=== PATIENT | male | born 1950 | race Caucasian/White ===

== ENCOUNTER 2018-03-12 11:29 | Inpatient (IN) | payer MEDICARE, OTHER, SELFPAY ==
[2018-03-12] VITALS (15 sets, daily range): BP systolic 99–131; BP diastolic 68–93; PULSE 65–109; RESP 14–28; TEMP 36.3–36.8; O2SAT 95–98; BMI 26.4; BMI 26.0
--- NOTE | 2018-03-12 11:36 | CT_ITS ---
STUDY: CT BRAIN WITHOUT CONTRAST REASON FOR EXAM: Male, 67 years old. Frequent falls and weakness. Confusion. RADIATION DOSAGE (If Supplied By Facility): CTDIvol = ( 44.99 ) mGy, DLP = ( 762.36 ) mGycm TECHNIQUE: Transaxial CT imaging of the brain was performed without administration of intravenous contrast material. Individualized dose optimization techniques were used for this CT. COMPARISON: None. FINDINGS: Normal soft tissue structures. Normal calvarium. There is moderate cerebral atrophy with widening of the extra-axial spaces and ventricular dilatation. There are areas of decreased attenuation within the white matter tracts of the supratentorial brain, consistent with microvascular disease changes. Normal basal ganglia and thalami. Normal brainstem. Normal cerebellum. There is no intracranial hemorrhage. There are no findings of an acute ischemic infarction. Normal visualized paranasal sinuses. CT/Brain/Head without Contrast IMPRESSION: No acute intracranial process. Electronically Signed: Duc Meade MD at 12:58 EDT Tel , Service support ,
--- NOTE | 2018-03-12 11:36 | EKG12_ITS ---
Test Reason : FALL Blood Pressure : / mmHG Vent. Rate : 098 BPM Atrial Rate : 098 BPM P-R Int : 150 ms QRS Dur : 076 ms QT Int : 454 ms P-R-T Axes : 036 000 111 degrees QTc Int : 579 ms Sinus rhythm with Premature supraventricular complexes ST & T wave abnormality, consider lateral ischemia Prolonged QT Abnormal ECG Confirmed by MATIAS MYLES, DANIEL ([id number]), senior technical editor GEORGI URENA ([id number] on 03/14/2018 3:26:30 PM Referred By: ASHLEY Confirmed By:DANIEL SALCEDO MD
--- NOTE | 2018-03-12 11:36 | RAD_ITS ---
STUDY: X-RAY CHEST REASON FOR EXAM: Male, 67 years old. Weakness, confusion TECHNIQUE: Single AP portable view of the chest. COMPARISON: None. FINDINGS: Cardiac monitoring leads overlie the chest. The lungs are clear and expanded. There is no demonstrated pleural abnormality. Normal size heart. Normal mediastinum and puja. Normal visualized pulmonary arteries. There is atherosclerotic tortuosity of the aortic arch and descending thoracic aorta. There are diffuse degenerative changes of the visualized thoracic spine. Normal visualized ribs, clavicles, and shoulders. There is no demonstrated abnormality of the visualized soft tissue structures of the upper abdomen. RAD/Chest 1 View IMPRESSION: Degenerative changes, as described above. No demonstrated acute cardiopulmonary process. Electronically Signed: Fransico Royal DO at 12:28 EDT Tel , Service support ,
--- NOTE | 2018-03-12 11:41 | ED.VISSUMM ---
- ER Visit Summary Date of Service: 03/12/18 Chief Complaint: Multiple falls, dizziness History of Present Illness: The patient is a 67 M with history of chronic alcohol abuse presents to the emergency department multiple falls. Patient states over the past 3 weeks, he has been very unsteady on his feet. He states he has been falling 2 or 3 times a day. He also admits to some change in his speech. He states it has been going on for at least 5 days. Today, he was out in his yard and fell. He states that he felt too weak to get up. Squad was called. He had no evidence of external injury. Patient denies any history of stroke. He states that he does drink approximately 12 beers a day. He also has a history of hypertension but thinks he has been compliant with his medications. He denies headache or visual change. He does states when he walks, he feels very unsteady like his feet cannot feel the ground correctly. Physical Examination: Vital signs reviewed General: Mildly cachectic with dry mucous membranes Head: Normocephalic, atraumatic Eyes: Pupils equal and reactive, extraocular muscles intact Neck, supple, no lymphadenopathy Heart: Regular rate and rhythm Respiratory: No distress, clear bilaterally Abdomen: Soft, nontender, nondistended, no peritoneal signs Back: Nontender Extremities: Nontender, no edema, no cords Skin: Normal color no rash Neuro: Alert and oriented, patient has abnormalities in cerebellar tasks and mild dysarthria, NIH is 2 Test Results: [] Emergency Department Course and Treatment: The patient presents with new onset ataxia. He also had mild dysarthria. The patient does have a history of alcohol abuse. He had a very broad differential. EKG was obtained which did not show atrial fibrillation. His x-ray was unremarkable. Patient was given fluids, thiamine, and folate. His head CT does not show acute on normality. Screening labs do demonstrate acute kidney injury and anion gap acidosis. He also has a small amount of ketones. I do feel that this patient's presentation is multifactorial. I am unsure if this is a Warneke's encephalopathy versus a posterior stroke. I do for the patient's can require admission for further neurologic workup. The patient was started on D5 LR given his ketosis. He was loaded with Librium. He was discussed with the hospitalist and will be admitted. Treatment Plan: [] Disposition: Admission Impression: 1. New onset ataxia 2. Alcohol ketoacidosis 3. Acute kidney injury This note was generated with [employer] dictation software. It may contain incorrect words, spelling, and punctuation that were not noted in review of the chart prior to signing ED Disposition - Plan for ED Patient: Chief Complaint: Fall
[2018-03-12] MEDS: 0.9% Normal Saline 1,000 ML 999 ML IV (11:49)
[2018-03-12 11:50] LABS: Bedside Glucose 105 mg/dL (70-110)
[2018-03-12 12:09] LABS: Absolute Lymphocyte Count 0.76 X10^3/ul (0.83-4.51); Absolute Neutrophil Count 10.1 X10^3/uL (2.0-7.7); Basophil# 0.03 X10^3/uL; Basophil% 0.3 % (0-1); Eosinophil# 0.09 X10^3/uL; Eosinophils% 0.8 % (0-5); Hemoglobin 15.8 g/dl (13.0-16.5); Lymphocyte # 0.76 X10^3/ul (4.0); Lymphocyte % 6.5 % (19-41); Mean Corp Hgb Conc 33.6 g/gl (32-36); Mean Corpuscular Hgb 31.1 pg (27.0-32.0); Mean Corpuscular Volume 92.5 fL (80-94); Monocyte# 0.66 X10^3/uL; Monocyte% 5.7 % (0-10); Neutrophil # 10.09 X10^3/uL (2.7-7.7); Neutrophil % 86.5 % (47-70); POSITIVE COUNT NO; POSITIVE DIFFERENTIAL NO; POSITIVE MORPHOLOGY NO; Platelet Count 283 K/mm3 (150-450); RBC Distribution Width CV 14.2 % (11.6-14.6); RBC Distribution Width SD 47.8 fl (35.1-43.9); Red Blood Count 5.08 M/mm3 (4.6-6.2); White Blood Count 11.7 K/mm3 (4.4-11.0)
[2018-03-12 12:13] LABS: Alcohol, Blood (Medical)-Serum < 3.0 mg/dL
[2018-03-12 12:19] LABS: AST(SGOT) 57 U/L (15-37); Alanine Aminotransfer ALT/SGPT 44 U/L (16-61); Alkaline Phosphatase 120 U/L (45-117); Anion Gap 21 (5-15); BUN 55 mg/dL (7-18); BUN/Creat Ratio 22.4 RATIO (10-20); Bilirubin, Direct 0.23 mg/dL (0.00-0.30); Calcium,Total 10.2 mg/dL (8.5-10.1); Chloride 93 mmol/L (98-107); Creatinine, Serum 2.46 mg/dL (0.70-1.30); EST Glomerular Filtration Rate 28 mL/min (>60); Est Glom Filt Rate - Afr Amer 34 mL/min (>60); Estimated Creatinine Clearance 23.73 ml/min; Globulin 4.8 g/dL (2.2-4.2); Glucose 101 mg/dL (74-106); Potassium 4.1 mmol/L (3.5-5.1); Protein, Total 8.8 g/dL (6.4-8.2); Sodium Level 132 mmol/L (136-145)
[2018-03-12 12:21] LABS: International Normalized Ratio 1.8; Prothrombin Time (Protime)PT. 20.9 SECONDS (11.7-14.9)
[2018-03-12 12:22] LABS: Partial Thromboplast Time 34.5 Seconds (24.1-36.2)
--- NOTE | 2018-03-12 13:08 | PCM.HP.STD ---
Problem List (1) Stroke Status: Acute Qualifiers: CVA mechanism: unspecified Qualified Code(s): I63.9 - Cerebral infarction, unspecified (2) Alcoholic ketoacidosis Status: Acute (3) Hyponatremia Status: Acute (4) LEENA (acute kidney injury) Status: Acute (5) Abnormal LFTs Status: Chronic (6) Alcohol abuse Status: Chronic (7) HTN (hypertension) Status: Chronic Qualifiers: Hypertension type: essential hypertension Qualified Code(s): I10 - Essential (primary) hypertension (8) HLD (hyperlipidemia) Status: Chronic Qualifiers: Hyperlipidemia type: pure hypercholesterolemia Qualified Code(s): E78.00 - Pure hypercholesterolemia, unspecified; E78.0 - Pure hypercholesterolemia (9) Gout Status: Chronic Qualifiers: Gout site: unspecified site Gout etiology: unspecified cause Chronicity: unspecified Qualified Code(s): M10.9 - Gout, unspecified History of Present Illness Date of Admission: 03/12/18 Chief Complaint: Frequent falls The patient is a 67 y/o M w/ PMHx: HTN, HLD, Gout, recent penitentiary and onset heavy EtOH consumption starting ~ 4 weeks prior w/ 6-8 [employer] hard lemonades per day w/ onset over this same timeline gait disturbance, frequent falling, not specifically able to tell a specific side with additionally dysarthria. In the ED work-up included T 97.4, heart rate 66, BP 114/83, respiratory rate 18, 98% on room air, CBC with WBC 11.7, hemoglobin 15.8, platelet 283 with left shift, coags with PT 20.9, INR 1.8, PTT 34.5, CMP with sodium 132, chloride 93, carbon dioxide 18, anion gap 21, BUN/Cr 55/2.46, AST/ALT 57/44, alkaline phosphatase 120, troponin 0.019, ethyl alcohol less than 3, acetone small, CT brain with no acute intracranial process, chest x-ray with no acute findings. In the ED given initial concern for prolonged alcohol abuse history patient administered Librium 50 mg p.o. ?1 in addition to normal saline 1 L bolus in addition to initiation following lab results to D5LR at 150 cc/hr, thiamine 100 mg IV ?1. Past Medical History Past Medical History (Chronic Problems): Chronic Problems Abnormal LFTs (Chronic) Alcohol abuse (Chronic) HTN (hypertension) (Chronic) HLD (hyperlipidemia) (Chronic) Gout (Chronic) Allergies No Known Allergies Allergy (Verified 03/12/18 11:36) Home Medications: Ambulatory Orders Medication Instructions Recorded Unobtainable [Unobtainable] 03/12/18 Surgical History: - - R THR. 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 Smoking Status: Former smoker Tobacco Use: Non-smoker Alcohol: Heavy - 6-8 normal size [employer] hard lemonade daily. Drugs: None - *Family History Maternal History Items: - - No marked maternal history including DM, HTN, HD. Paternal History Items: Diabetes Review of Systems Constitutional: Reports: Anorexia, Malaise, Weakness, Fatigue. Denies: Chills, Fever, Weight Change HEENT: Denies: Head Aches, Sinus Congestion, Sinus Drainage Cardiovascular: Denies: Chest Pain, Palpitations Respiratory: Denies: Cough, Shortness of breath at rest, Sputum production Gastrointestinal: Reports: Nausea. Denies: Abdominal Pain, Vomiting Genitourinary: Denies: Dysuria Musculoskeletal: Reports: Back Pain. Denies: Joint Pain, Joint Tenderness Skin: Reports: Skin Changes. Denies: Rash, Wounds Neurological: Reports: Balance problems, Change in Speech, Confusion, Incoordination. Denies: Focal weakness, Numbness, Tingling Psychiatric: Reports: Depression. Denies: Anxiety, Homicidal Ideations, Suicidal Ideations Hematologic/ Lymphatic: Denies: Easy Bruising, Easy Bleeding VTE Information - Inpt Only VTE Present on Admission: No VTE Mechan Device Prophylaxis: SCD's VTE Pharm Prophylaxis ordered?: Yes Patient Problems: Active and Suspected Problems Alcoholic ketoacidosis (Acute) Stroke (Acute) Hyponatremia (Acute) LEENA (acute kidney injury) (Acute) Subjective: Patient seated upright in the bed, no acute distress. Objective: Physical Examination: General: awake, alert, oriented x [address], year, month and cooperative, seated upright in bed in no apparent distress. Skin: normal color, turgor, no icterus, cyanosis notably dry skin especially the lower extremities with flaking and occasional abrasion to lower extremities, very staged. HEENT: AT/NC, EOMI, PERRLA, dry MM, no carotid bruits or JVD noted. Lungs: CTA bilaterally, moderate effort, mild decrease BL bases, no rales, ronchi or wheezing. Heart: Regular rate and rhythm; no gallop, rub audible. Abdomen: soft, NTTP, ND, normal BS, + mild HM. Extremities: no cyanosis, clubbing, or edema. Neurological: patient awake, alert, oriented x 3; cognitive function intact; pupils equally reactive to light and accomodation; cranial nerves II-XII grossly normal, moving all 4 extremities, no focal deficits, strength severely globally decreased, sensation intact, negative babinski, abnormal R sided FTN and HTS, dysarthria present. Psychiatric: affect appears mildly flat, no acute evidence of depressive or anxiety feelings. - Physical Exam Vital Signs Temp Pulse Resp BP Pulse Ox 97.8 F 93 28 H 114/86 H 97 03/12/18 11:29 03/12/18 13:01 03/12/18 13:01 03/12/18 13:01 03/12/18 13:01 Oxygen Flow Rate (L/min) 2 Oxygen Delivery Method Nasal Cannula Weight: 154 lb 5.177 oz Body Mass Index (BMI) 26.4 Laboratory Tests Past 24 Hrs 03/12/18 03/12/18 03/12/18 11:25 11:25 11:25 WBC 11.7 H RBC 5.08 Hgb 15.8 Hct 47.0 MCV 92.5 MCH 31.1 MCHC 33.6 RDW 14.2 RDW Differential 47.8 H Plt Count 283 MPV 11.0 Immature Gran % (Auto) 0.200 Neut % (Auto) 86.5 H Lymph % (Auto) 6.5 L [place] % (Auto) 5.7 Eos % (Auto) 0.8 Baso % (Auto) 0.3 Absolute Neuts (auto) 10.1 H Absolute Lymphs (auto) 0.76 L Total Counted Not Reportable PT 20.9 H INR 1.8 APTT 34.5 Sodium 132 L Potassium 4.1 Chloride 93 L Carbon Dioxide 18.0 L Anion Gap 21 H BUN 55 H Creatinine 2.46 H Estim Creat Clear Calc 23.73 Est GFR (MDRD) Af Amer 34 L Est GFR (MDRD) Non-Af 28 L BUN/Creatinine Ratio 22.4 H Glucose 101 Calcium 10.2 H Total Bilirubin 0.70 Direct Bilirubin 0.23 AST 57 H ALT 44 Alkaline Phosphatase 120 H Troponin I 0.019 Total Protein 8.8 H Albumin 4.0 Globulin 4.8 H Ethyl Alcohol Acetone Level 03/12/18 11:25 WBC RBC Hgb Hct MCV MCH MCHC RDW RDW Differential Plt Count MPV Immature Gran % (Auto) Neut % (Auto) Lymph % (Auto) [place] % (Auto) Eos % (Auto) Baso % (Auto) Absolute Neuts (auto) Absolute Lymphs (auto) Total Counted PT INR APTT Sodium Potassium Chloride Carbon Dioxide Anion Gap BUN Creatinine Estim Creat Clear Calc Est GFR (MDRD) Af Amer Est GFR (MDRD) Non-Af BUN/Creatinine Ratio Glucose Calcium Total Bilirubin Direct Bilirubin AST ALT Alkaline Phosphatase Troponin I Total Protein Albumin Globulin Ethyl Alcohol < 3.0 Acetone Level SMALL H POC Glucose 03/12/18 11:44 POC Glucose 105 Assessment/Plan All Active Problems Alcoholic ketoacidosis (Acute) Stroke (Acute) Hyponatremia (Acute) LEENA (acute kidney injury) (Acute) The patient is a 67 y/o M w/ PMHx: HTN, HLD, Gout, recent penitentiary and onset heavy EtOH consumption starting ~ 4 weeks prior w/ 6-8 [employer] hard lemonades per day w/ onset over this same timeline gait disturbance, frequent falling, not specifically able to tell a specific side with additionally dysarthria. (1) Ataxia, frequent falls, dysarthria concerning for CVA: In the ED work-up included T 97.4, heart rate 66, BP 114/83, respiratory rate 18, 98% on room air, CBC with WBC 11.7, hemoglobin 15.8, platelet 283 with left shift, coags with PT 20.9, INR 1.8, PTT 34.5, CMP with sodium 132, chloride 93, carbon dioxide 18, anion gap 21, BUN/Cr 55/2.46, AST/ALT 57/44, alkaline phosphatase 120, troponin 0.019, ethyl alcohol less than 3, acetone small CT brain with no acute intracranial process, chest x-ray with no acute findings. Will admit to PCU, will obtain MRI Brain, MRA Head and Neck, ECHO, PT/OT/Speech/Nutrition evaluation per protocol. Will consult Neurology for evaluation. Given timeline 3-4 weeks, if HTN elevated will initiate therapy; however, currently remains appropriate, start asa therapy as not previously taking, start high dose statin w/ AM FLP, maintain on fall precautions, Mag pending, TSH pending. (2) Alcoholic ketoacidosis: CMP with sodium 132, chloride 93, carbon dioxide 18, anion gap 21, BUN/Cr 55/2.46, AST/ALT 57/44, alkaline phosphatase 120, troponin 0.019, ethyl alcohol less than 3, acetone small, initiated on D5LR, will continue, repeat BMP q 4 hours x 3 to trend and assure improvement, repeat CMP in AM. Mag, Phos pending. Maintain on CIWA. Maintain on MVI, thiamine, folic acid. Nutrition consulted. CM consulted. (2) Acute kidney injury: Secondary to acute presentation, #1, #2, #3. Admission BUN/Cr 55/2.46, unclear baseline. Will continue to hydrate, hold nephrotoxic medications and repeat BMP as noted given concurrent #2 q 4 hours x 3, repeat CMP in AM. Obtain FeNa assessment. If no improvement obtain renal US and nephrology consultation. (3) EtOH Abuse: Patient notes routine consumption of 6-8 [place] hard lemonade daily x 4 weeks now, noted intermittent heavy history but onset started more regularly with penitentiary and visit to [place] from his home in [facility]. Initially had been given librium in the ED as concerned given history of acute EtOH withdrawal; however, now more alert and noting only 4 weeks of this consumption history. Will maintain on CIWA protocol, MVI, thiamine and folic acid. Nutrition consulted. (4) Hypertension: Not elevated, unclear regimen, defer addition given normal BP current, PRN labetaolol. (5) Hyperlipidemia: Add high dose statin, FLP in AM. (6) Suspect Depression: Recent start heavy EtOH following penitentiary, daughter noting depression concerns as etiology. CM consulted. (7) DVT Prophylaxis: SCDs, heparin. Code Visit Inpatient E&M: 02301 Init Hosp L3
--- NOTE | 2018-03-12 13:11 | HP.PCM_ITS ---
Problem List (1) Stroke Status: Acute Qualifiers: CVA mechanism: unspecified Qualified Code(s): I63.9 - Cerebral infarction, unspecified (2) Alcoholic ketoacidosis Status: Acute (3) Hyponatremia Status: Acute (4) LEENA (acute kidney injury) Status: Acute (5) Abnormal LFTs Status: Chronic (6) Alcohol abuse Status: Chronic (7) HTN (hypertension) Status: Chronic Qualifiers: Hypertension type: essential hypertension Qualified Code(s): I10 - Essential (primary) hypertension (8) HLD (hyperlipidemia) Status: Chronic Qualifiers: Hyperlipidemia type: pure hypercholesterolemia Qualified Code(s): E78.00 - Pure hypercholesterolemia, unspecified; E78.0 - Pure hypercholesterolemia (9) Gout Status: Chronic Qualifiers: Gout site: unspecified site Gout etiology: unspecified cause Chronicity: unspecified Qualified Code(s): M10.9 - Gout, unspecified History of Present Illness Date of Admission: 03/12/18 Chief Complaint: Frequent falls The patient is a 67 y/o M w/ PMHx: HTN, HLD, Gout, recent skilled nursing and onset heavy EtOH consumption starting ~ 4 weeks prior w/ 6-8 [employer] hard lemonades per day w/ onset over this same timeline gait disturbance, frequent falling, not specifically able to tell a specific side with additionally dysarthria. In the ED work-up included T 97.4, heart rate 66, BP 114/83, respiratory rate 18, 98% on room air, CBC with WBC 11.7, hemoglobin 15.8, platelet 283 with left shift, coags with PT 20.9, INR 1.8, PTT 34.5, CMP with sodium 132, chloride 93, carbon dioxide 18, anion gap 21, BUN/Cr 55/2.46, AST/ALT 57/44, alkaline phosphatase 120, troponin 0.019, ethyl alcohol less than 3, acetone small, CT brain with no acute intracranial process, chest x-ray with no acute findings. In the ED given initial concern for prolonged alcohol abuse history patient administered Librium 50 mg p.o. ?1 in addition to normal saline 1 L bolus in addition to initiation following lab results to D5LR at 150 cc/hr, thiamine 100 mg IV ?1. Past Medical History Past Medical History (Chronic Problems): Chronic Problems Abnormal LFTs (Chronic) Alcohol abuse (Chronic) HTN (hypertension) (Chronic) HLD (hyperlipidemia) (Chronic) Gout (Chronic) Allergies No Known Allergies Allergy (Verified 03/12/18 11:36) Home Medications: Ambulatory Orders Medication Instructions Recorded Unobtainable [Unobtainable] 03/12/18 Surgical History: - - R THR. 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 Smoking Status: Former smoker Tobacco Use: Non-smoker Alcohol: Heavy - 6-8 normal size mon[place] hard lemonade daily. Drugs: None - *Family History Maternal History Items: - - No marked maternal history including DM, HTN, HD. Paternal History Items: Diabetes Review of Systems Constitutional: Reports: Anorexia, Malaise, Weakness, Fatigue. Denies: Chills, Fever, Weight Change HEENT: Denies: Head Aches, Sinus Congestion, Sinus Drainage Cardiovascular: Denies: Chest Pain, Palpitations Respiratory: Denies: Cough, Shortness of breath at rest, Sputum production Gastrointestinal: Reports: Nausea. Denies: Abdominal Pain, Vomiting Genitourinary: Denies: Dysuria Musculoskeletal: Reports: Back Pain. Denies: Joint Pain, Joint Tenderness Skin: Reports: Skin Changes. Denies: Rash, Wounds Neurological: Reports: Balance problems, Change in Speech, Confusion, Incoordination. Denies: Focal weakness, Numbness, Tingling Psychiatric: Reports: Depression. Denies: Anxiety, Homicidal Ideations, Suicidal Ideations Hematologic/ Lymphatic: Denies: Easy Bruising, Easy Bleeding VTE Information - Inpt Only VTE Present on Admission: No VTE Mechan Device Prophylaxis: SCD's VTE Pharm Prophylaxis ordered?: Yes Patient Problems: Active and Suspected Problems Alcoholic ketoacidosis (Acute) Stroke (Acute) Hyponatremia (Acute) LEENA (acute kidney injury) (Acute) Subjective: Patient seated upright in the bed, no acute distress. Objective: Physical Examination: General: awake, alert, oriented x [address], year, month and cooperative , seated upright in bed in no apparent distress. Skin: normal color, turgor, no icterus, cyanosis notably dry skin especially the lower extremities with flaking and occasional abrasion to lower extremities , very staged. HEENT: AT/NC, EOMI, PERRLA, dry MM, no carotid bruits or JVD noted. Lungs: CTA bilaterally, moderate effort, mild decrease BL bases, no rales, ronchi or wheezing. Heart: Regular rate and rhythm; no gallop, rub audible. Abdomen: soft, NTTP, ND, normal BS, + mild HM. Extremities: no cyanosis, clubbing, or edema. Neurological: patient awake, alert, oriented x 3; cognitive function intact; pupils equally reactive to light and accomodation; cranial nerves II-XII grossly normal, moving all 4 extremities, no focal deficits, strength severely globally decreased, sensation intact, negative babinski, abnormal R sided FTN and HTS, dysarthria present. Psychiatric: affect appears mildly flat, no acute evidence of depressive or anxiety feelings. - Physical Exam Vital Signs Temp Pulse Resp BP Pulse Ox 97.8 F 93 28 H 114/86 H 97 03/12/18 11:29 03/12/18 13:01 03/12/18 13:01 03/12/18 13:01 03/12/18 13:01 Oxygen Flow Rate (L/min) 2 Oxygen Delivery Method Nasal Cannula Weight: 154 lb 5.177 oz Body Mass Index (BMI) 26.4 Laboratory Tests Past 24 Hrs 03/12/18 03/12/18 03/12/18 11:25 11:25 11:25 WBC 11.7 H RBC 5.08 Hgb 15.8 Hct 47.0 MCV 92.5 MCH 31.1 MCHC 33.6 RDW 14.2 RDW Differential 47.8 H Plt Count 283 MPV 11.0 Immature Gran % (Auto) 0.200 Neut % (Auto) 86.5 H Lymph % (Auto) 6.5 L [place] % (Auto) 5.7 Eos % (Auto) 0.8 Baso % (Auto) 0.3 Absolute Neuts (auto) 10.1 H Absolute Lymphs (auto) 0.76 L Total Counted Not Reportable PT 20.9 H INR 1.8 APTT 34.5 Sodium 132 L Potassium 4.1 Chloride 93 L Carbon Dioxide 18.0 L Anion Gap 21 H BUN 55 H Creatinine 2.46 H Estim Creat Clear Calc 23.73 Est GFR (MDRD) Af Amer 34 L Est GFR (MDRD) Non-Af 28 L BUN/Creatinine Ratio 22.4 H Glucose 101 Calcium 10.2 H Total Bilirubin 0.70 Direct Bilirubin 0.23 AST 57 H ALT 44 Alkaline Phosphatase 120 H Troponin I 0.019 Total Protein 8.8 H Albumin 4.0 Globulin 4.8 H Ethyl Alcohol Acetone Level 03/12/18 11:25 WBC RBC Hgb Hct MCV MCH MCHC RDW RDW Differential Plt Count MPV Immature Gran % (Auto) Neut % (Auto) Lymph % (Auto) [place] % (Auto) Eos % (Auto) Baso % (Auto) Absolute Neuts (auto) Absolute Lymphs (auto) Total Counted PT INR APTT Sodium Potassium Chloride Carbon Dioxide Anion Gap BUN Creatinine Estim Creat Clear Calc Est GFR (MDRD) Af Amer Est GFR (MDRD) Non-Af BUN/Creatinine Ratio Glucose Calcium Total Bilirubin Direct Bilirubin AST ALT Alkaline Phosphatase Troponin I Total Protein Albumin Globulin Ethyl Alcohol < 3.0 Acetone Level SMALL H POC Glucose 03/12/18 11:44 POC Glucose 105 Assessment/Plan All Active Problems Alcoholic ketoacidosis (Acute) Stroke (Acute) Hyponatremia (Acute) LEENA (acute kidney injury) (Acute) The patient is a 67 y/o M w/ PMHx: HTN, HLD, Gout, recent skilled nursing and onset heavy EtOH consumption starting ~ 4 weeks prior w/ 6-8 [employer] hard lemonades per day w/ onset over this same timeline gait disturbance, frequent falling, not specifically able to tell a specific side with additionally dysarthria. (1) Ataxia, frequent falls, dysarthria concerning for CVA: In the ED work-up included T 97.4, heart rate 66, BP 114/83, respiratory rate 18, 98% on room air , CBC with WBC 11.7, hemoglobin 15.8, platelet 283 with left shift, coags with PT 20.9, INR 1.8, PTT 34.5, CMP with sodium 132, chloride 93, carbon dioxide 18 , anion gap 21, BUN/Cr 55/2.46, AST/ALT 57/44, alkaline phosphatase 120, troponin 0.019, ethyl alcohol less than 3, acetone small CT brain with no acute intracranial process, chest x-ray with no acute findings. Will admit to PCU, will obtain MRI Brain, MRA Head and Neck, ECHO, PT/OT/Speech/Nutrition evaluation per protocol. Will consult Neurology for evaluation. Given timeline 3 -4 weeks, if HTN elevated will initiate therapy; however, currently remains appropriate, start asa therapy as not previously taking, start high dose statin w/ AM FLP, maintain on fall precautions, Mag pending, TSH pending. (2) Alcoholic ketoacidosis: CMP with sodium 132, chloride 93, carbon dioxide 18 , anion gap 21, BUN/Cr 55/2.46, AST/ALT 57/44, alkaline phosphatase 120, troponin 0.019, ethyl alcohol less than 3, acetone small, initiated on D5LR, will continue, repeat BMP q 4 hours x 3 to trend and assure improvement, repeat CMP in AM. Mag, Phos pending. Maintain on CIWA. Maintain on MVI, thiamine, folic acid. Nutrition consulted. CM consulted. (2) Acute kidney injury: Secondary to acute presentation, #1, #2, #3. Admission BUN/Cr 55/2.46, unclear baseline. Will continue to hydrate, hold nephrotoxic medications and repeat BMP as noted given concurrent #2 q 4 hours x 3, repeat CMP in AM. Obtain FeNa assessment. If no improvement obtain renal US and nephrology consultation. (3) EtOH Abuse: Patient notes routine consumption of 6-8 [place] hard lemonade daily x 4 weeks now, noted intermittent heavy history but onset started more regularly with skilled nursing and visit to [place] from his home in [facility]. Initially had been given librium in the ED as concerned given history of acute EtOH withdrawal ; however, now more alert and noting only 4 weeks of this consumption history. Will maintain on CIWA protocol, MVI, thiamine and folic acid. Nutrition consulted. (4) Hypertension: Not elevated, unclear regimen, defer addition given normal BP current, PRN labetaolol. (5) Hyperlipidemia: Add high dose statin, FLP in AM. (6) Suspect Depression: Recent start heavy EtOH following skilled nursing, daughter noting depression concerns as etiology. CM consulted. (7) DVT Prophylaxis: SCDs, heparin. Code Visit Inpatient E&M: 47154 Init Hosp L3
[2018-03-12] MEDS: Dextrose 5%-Lactated Ringers 1,000 ML 150 ML IV ×2 (13:36→20:57)
[2018-03-12] MEDS: chlordiazePOXIDE 25 MG Capsule 50 MG PO (13:51)
--- NOTE | 2018-03-12 14:38 | ECHOCS_ITS ---
Reason For Study: TIA/STROKE Procedure This was a 2D Doppler, Color Flow transthoracic echocardiogram. The study was technically difficult. Contrast injection was performed. Exam performed portable in patient room. Left Ventricle Normal LV size. Left ventricular systolic function is normal. The estimated ejection fraction is 60 %. Transmitral and pulmonary venous doppler flow suggestive of impaired relaxation of left ventricle. Transmitral diastolic flow velocities suggest mild (stage 1) diastolic dysfunction (reversed pattern). No regional wall motion abnormalities noted. Right Ventricle Normal RV size. Normal systolic function. Atria Normal left atrium. Normal right atrium. Mitral Valve Normal mitral valve. Tricuspid Valve Normal tricuspid valve. Mild (1+) tricuspid valve insufficiency. Pulmonary artery systolic pressure is 30 mmHg. Aortic Valve Trisinus/trileaflet aortic valve. Moderate focal aortic valve calcification. Peak aortic valve gradient 30 mmHg. Mean aortic valve gradient 18 mmHg. Mild aortic stenosis. Calculated aortic valve area (continuity equation) is 1.5 cm2. Mild (1+) eccentric aortic valve insufficiency. Pulmonic Valve Normal pulmonic valve. Great Vessels Normal aortic root. The pulmonary artery is normal size. Normal inferior vena cava. Pericardium/Pleural No pericardial effusion. Medication Diluted definity 3ml given slow IV push to enhance endocardial definition. MMode/2D Measurements & Calculations LVIDd: 3.5 cm IVSd: 1.1 cm LVOT diam: 2.0 cm LVIDs: 2.6 cm LVPWd: 1.1 cm LVOT area: 3.2 cm2 RVDd: 2.6 cm FS: 26.2 % Ao root diam: 3.5 cm LAV(MOD-bp): 38.9 ml LVAd ap4: 25.9 cm2 LAV(MOD-bp) Indexed: 22.4 ml/m2 EDV(MOD-sp4): 67.0 ml LAV(MOD-sp2): 46.9 ml EDV(sp4-el): 72.0 ml LAV(MOD-sp4): 28.5 ml LVAs ap4: 12.6 cm2 ESV(MOD-sp4): 22.2 ml ESV(sp4-el): 23.0 ml EF(MOD-sp4): 66.9 % EF(sp4-el): 68.0 % SV(MOD-sp4): 44.9 ml SV(sp4-el): 49.0 ml LA A4 area: 13.9 cm2 RA A4 area: 12.6 cm2 Time Measurements MV dec time: 0.35 sec Doppler Measurements & Calculations MV E max heri: 62.7 cm/sec Lat Peak E' Heri: 6.4 cm/sec Med Peak E' Heri: 4.9 cm/sec MV A max heri: 94.4 cm/sec E/E' lat: 9.8 E/E' med: 12.8 MV E/A: 0.66 Ao V2 max: 273.7 cm/sec AI max heri: 367.2 cm/sec LV V1 max: 124.4 cm/sec Ao max P.0 mmHg AI max P.9 mmHg LV V1 max P.2 mmHg Ao V2 mean: 205.2 cm/sec AI dec slope: 141.6 cm/sec2 LV V1 mean P.7 mmHg Ao mean P.4 mmHg AI P1/2t: 759.5 msec LV V1 mean: 91.7 cm/sec Ao V2 VTI: 47.8 cm LV V1 VTI: 24.9 cm JORY(I,D): 1.7 cm2 JORY(V,D): 1.5 cm2 SV(LVOT): 80.6 ml TR max heri: 253.7 cm/sec TR max P.8 mmHg Interpretation Summary Normal LV size. Left ventricular systolic function is normal. The estimated ejection fraction is 60 %. Transmitral and pulmonary venous doppler flow suggestive of impaired relaxation of left ventricle Transmitral diastolic flow velocities suggest mild (stage 1) diastolic dysfunction (reversed pattern). Mild (1+) eccentric aortic valve insufficiency. Moderate focal aortic valve calcification. Mild aortic stenosis. Calculated aortic valve area (continuity equation) is 1.5 cm2. Ordering Physician: Avani Fisher Performed By: Patience Lindsey, MARGACS, RVT
[2018-03-12 15:36] LABS: Bedside Glucose 99 mg/dL (70-110)
[2018-03-12 15:39] LABS: Anion Gap 19 (5-15); BUN 49 mg/dL (7-18); BUN/Creat Ratio 24.9 RATIO (10-20); Calcium,Total 9.1 mg/dL (8.5-10.1); Chloride 97 mmol/L (98-107); Creatinine, Serum 1.97 mg/dL (0.70-1.30); EST Glomerular Filtration Rate 36 mL/min (>60); Est Glom Filt Rate - Afr Amer 44 mL/min (>60); Estimated Creatinine Clearance 29.63 ml/min; Glucose 91 mg/dL (74-106); Magnesium 1.6 mg/dL (1.6-2.6); Phosphorus 3.3 mg/dL (2.5-4.9); Potassium 4.1 mmol/L (3.5-5.1); Sodium Level 136 mmol/L (136-145)
[2018-03-12] MEDS: Heparin Injection (Vial) 5,000 UNIT/ML VIAL 5000 UNIT SC ×2 (16:33→21:47)
[2018-03-12] MEDS: Pantoprazole Sodium 20 MG Tablet PO ×2 (16:34→21:47)
[2018-03-12] MEDS: Thiamine Hydrochloride 100 MG Tablet PO (16:34)
[2018-03-12] MEDS: Aspirin 81 MG TAB.CHEW PO (16:34)
[2018-03-12 19:37] LABS: Anion Gap 12 (5-15); BUN 47 mg/dL (7-18); BUN/Creat Ratio 23.5 RATIO (10-20); Chloride 98 mmol/L (98-107); EST Glomerular Filtration Rate 35 mL/min (>60); Est Glom Filt Rate - Afr Amer 43 mL/min (>60); Estimated Creatinine Clearance 29.19 ml/min; Glucose 93 mg/dL (74-106); Potassium 3.7 mmol/L (3.5-5.1); Sodium Level 133 mmol/L (136-145)
[2018-03-12] MEDS: Atorvastatin Calcium 80 MG Tablet PO (21:47)
[2018-03-13] VITALS (13 sets, daily range): BP systolic 91–114; BP diastolic 60–79; PULSE 60–83; RESP 16–18; TEMP 36.4–37; O2SAT 93–98; BMI 26.0
[2018-03-13 02:16] LABS: Anion Gap 11 (5-15); BUN 44 mg/dL (7-18); BUN/Creat Ratio 24.7 RATIO (10-20); Calcium,Total 8.9 mg/dL (8.5-10.1); Chloride 100 mmol/L (98-107); Creatinine, Serum 1.78 mg/dL (0.70-1.30); EST Glomerular Filtration Rate 40 mL/min (>60); Est Glom Filt Rate - Afr Amer 49 mL/min (>60); Glucose 108 mg/dL (74-106); Potassium 3.4 mmol/L (3.5-5.1); Sodium Level 135 mmol/L (136-145)
[2018-03-13] MEDS: Dextrose 5%-Lactated Ringers 1,000 ML 150 ML IV (03:32)
[2018-03-13 03:45] LABS: Bacteria 0 SEEN /hpf (None Seen); Mucous, Urine 0 SEEN /hpf (<or=2+); Red Blood Cells-Urine 0 SEEN /hpf (0-5); White Blood Cells 0 SEEN /hpf (0-5)
[2018-03-13 03:47] LABS: Color, Urine Yellow (Yellow); Glucose, Dipstick Normal (Normal); Ketone-Dipstick 15 mg/dl (Negative); Leukocyte Esterase-Dipstick Negative /ul (Negative); Nitrite-Dipstick Negative (Negative); Occult Blood-Urine Negative /ul (Negative); Protein-Dipstick Negative (Negative); Specific Gravity, Urine 1.015 (1.002-1.030); Urine Bilirubin Dipstick Negative (Negative); Urine Clarity Clear (Clear); Urine Urobilinogen Normal (Normal)
[2018-03-13 03:56] LABS: Squamous Epithelial Cells - UA 0-5 SEEN /hpf (0-5)
[2018-03-13 04:10] LABS: Amphetamine Urine VISTA NEGATIVE (<1000 ng/mL); Barbiturate Urine VISTA NEGATIVE (< 200 ng/mL); Benzodiazepine Urine VISTA POSITIVE (< 200 ng/mL); Cocaine Urine VISTA NEGATIVE (< 300 ng/mL); Ecstacy Urine VISTA NEGATIVE (< 500 ng/mL); Methadone Urine VISTA NEGATIVE (< 300 ng/mL); PCP Urine VISTA NEGATIVE (< 25 ng/mL); THC Urine VISTA NEGATIVE (< 50 ng/mL); Vista UDS pH Range 5
[2018-03-13 04:13] LABS: Urine Sodium 61 mmol/L (Not Establ.)
[2018-03-13 06:11] LABS: Basophil# 0.03 X10^3/uL; Basophil% 0.5 % (0-1); Eosinophils% 5.2 % (0-5); Hematocrit 38.3 % (40-54); Hemoglobin 12.7 g/dl (13.0-16.5); Lymphocyte % 13.9 % (19-41); Mean Corp Hgb Conc 33.2 g/gl (32-36); Mean Corpuscular Hgb 30.8 pg (27.0-32.0); Mean Platelet Vol. 10.8 fl (6.2-12.0); Monocyte# 0.64 X10^3/uL; Monocyte% 11.1 % (0-10); Neutrophil # 3.96 X10^3/uL (2.7-7.7); Neutrophil % 69.1 % (47-70); Platelet Count 176 K/mm3 (150-450); RBC Distribution Width CV 14.1 % (11.6-14.6); RBC Distribution Width SD 46.4 fl (35.1-43.9); Red Blood Count 4.12 M/mm3 (4.6-6.2); White Blood Count 5.7 K/mm3 (4.4-11.0)
[2018-03-13] MEDS: Heparin Injection (Vial) 5,000 UNIT/ML VIAL 5000 UNIT SC ×3 (06:12→21:16)
[2018-03-13 06:20] LABS: POSITIVE COUNT NO; POSITIVE DIFFERENTIAL NO; POSITIVE MORPHOLOGY NO
[2018-03-13 06:35] LABS: ALB/GLOB Ratio 0.9 RATIO (0.9-2.4); AST(SGOT) 54 U/L (15-37); Alanine Aminotransfer ALT/SGPT 34 U/L (16-61); Albumin, Serum 2.9 g/dL (3.2-5.0); Alkaline Phosphatase 82 U/L (45-117); Anion Gap 10 (5-15); BUN 35 mg/dL (7-18); Calcium,Total 9.1 mg/dL (8.5-10.1); Chloride 102 mmol/L (98-107); Cholesterol 157 mg/dL (200); Creatinine, Serum 1.67 mg/dL (0.70-1.30); EST Glomerular Filtration Rate 44 mL/min (>60); Est Glom Filt Rate - Afr Amer 53 mL/min (>60); Estimated Creatinine Clearance 34.96 ml/min; Globulin 3.4 g/dL (2.2-4.2); Glucose 80 mg/dL (74-106); High Density Lipoprotein 34 mg/dL; Potassium 3.3 mmol/L (3.5-5.1); Protein, Total 6.3 g/dL (6.4-8.2); Sodium Level 139 mmol/L (136-145); Triglycerides 93 mg/dL; Very Low Density Lipoprotein 19 mg/dL (5-40)
--- NOTE | 2018-03-13 08:08 | PCM.PN.HOSP ---
Patient Problems: Active and Suspected Problems Alcoholic ketoacidosis (Acute) Stroke (Acute) Hyponatremia (Acute) LEENA (acute kidney injury) (Acute) Subjective: Patient with no acute events overnight per self. Per nursing report patient stable, ongoing unchanged neurological changes with aphasia and ataxia. Patient's more talkative today and does state that prior to presentation to the hospital he may have been laying on the floor at his home for 24-40 hours but unclear timeline. Patient denies fevers, chills, nausea, emesis, abdominal pain, chest pain or dyspnea. Objective: Physical Examination: General: awake, alert, oriented x 3, cooperative, seated upright in bed in no apparent distress. Skin: normal color, turgor, no icterus, cyanosis notably dry skin especially the lower extremities with flaking and occasional abrasion to lower extremities, very staged. HEENT: AT/NC, EOMI, PERRLA, improved MMM. Lungs: CTA bilaterally, moderate effort, mild decrease BL bases, no rales, ronchi or wheezing. Heart: Regular rate and rhythm; no gallop, rub audible. Abdomen: soft, NTTP, ND, normal BS.. Extremities: no cyanosis, clubbing, or edema. Neurological: patient awake, alert, oriented x 3; cognitive function intact; pupils equally reactive to light and accomodation; cranial nerves II-XII grossly normal, moving all 4 extremities, no focal deficits, strength remains severely globally decreased, sensation intact, negative babinski, abnormal R sided FTN and HTS, dysarthria present. Psychiatric: affect appears remains mildly flat, no acute evidence of depressive or anxiety feelings. Vitals/I&O's: Vital Signs Temp Pulse Resp BP Pulse Ox 97.9 F 67 18 107/75 94 03/13/18 05:45 03/13/18 05:45 03/13/18 05:45 03/13/18 05:45 03/13/18 05:45 Oxygen Delivery Method Room Air Weight: 151 lb 10.848 oz Body Mass Index (BMI) 26.0 Intake and Output for Last 24 Hours 03/11/18 03/12/18 03/13/18 23:59 23:59 23:59 Intake Total 8 / 8 861 / 861 Balance 8 / 2217 861 / 861 Laboratory Results 03/12/18 15:03: Sodium 136, Potassium 4.1, Chloride 97 L, Carbon Dioxide 20.0 L, Anion Gap 19 H, BUN 49 H, Creatinine 1.97 H, Estim Creat Clear Calc 29.63, Est GFR (MDRD) Af Amer 44 L, Est GFR (MDRD) Non-Af 36 L, BUN/Creatinine Ratio 24.9 H, Glucose 91, Calcium 9.1, Phosphorus 3.3, Magnesium 1.6, TSH 1.60 03/12/18 15:29: POC Glucose 99 03/12/18 18:40: Sodium 133 L, Potassium 3.7, Chloride 98, Carbon Dioxide 23.0, Anion Gap 12, BUN 47 H, Creatinine 2.00 H, Estim Creat Clear Calc 29.19, Est GFR (MDRD) Af Amer 43 L, Est GFR (MDRD) Non-Af 35 L, BUN/Creatinine Ratio 23.5 H, Glucose 93, Calcium 9.0 03/12/18 22:20: Sodium 135 L, Potassium 3.4 L, Chloride 100, Carbon Dioxide 24.0, Anion Gap 11, BUN 44 H, Creatinine 1.78 H, Estim Creat Clear Calc 32.80, Est GFR (MDRD) Af Amer 49 L, Est GFR (MDRD) Non-Af 40 L, BUN/Creatinine Ratio 24.7 H, Glucose 108 H, Calcium 8.9 03/13/18 03:35: Urine Opiates Screen NEGATIVE, Urine Methadone Screen NEGATIVE, Ur Barbiturates Screen NEGATIVE, Ur Phencyclidine Scrn NEGATIVE, Ur Amphetamines Screen NEGATIVE, U Methamphetamin-MDMA NEGATIVE, U Benzodiazepines Scrn POSITIVE H, Urine Cocaine Screen NEGATIVE, U Cannabinoids Screen NEGATIVE, Ur Drug Screen Comment 03/13/18 03:35: Urine Creatinine 85.80 03/13/18 03:35: Urine Color Yellow, Urine Clarity Clear, Urine pH 5.0, Ur Specific [place] 1.015, Urine Protein Negative, Urine Glucose (UA) Normal, Urine Ketones 15 H, Urine Occult Blood Negative, Urine Nitrite Negative, Urine Bilirubin Negative, Urine Urobilinogen Normal, Ur Leukocyte Esterase Negative, Urine RBC 0 SEEN, Urine WBC 0 SEEN, Ur Squamous Epith Cells 0-5 SEEN, Urine Bacteria 0 SEEN, Urine Mucus 0 SEEN 03/13/18 03:35: Ur Random Sodium 61 03/13/18 05:32: WBC 5.7, RBC 4.12 L, Hgb 12.7 L, Hct 38.3 L, MCV 93.0, MCH 30.8, MCHC 33.2, RDW 14.1, RDW Differential 46.4 H, Plt Count 176, MPV 10.8, Immature Gran % (Auto) 0.200, Neut % (Auto) 69.1, Lymph % (Auto) 13.9 L, [place] % (Auto) 11.1 H, Eos % (Auto) 5.2 H, Baso % (Auto) 0.5, Absolute Neuts (auto) 4.0, Absolute Lymphs (auto) 0.80 L, Total Counted Not Reportable 03/13/18 05:32: Sodium 139, Potassium 3.3 L, Chloride 102, Carbon Dioxide 27.0, Anion Gap 10, BUN 35 H, Creatinine 1.67 H, Estim Creat Clear Calc 34.96, Est GFR (MDRD) Af Amer 53 L, Est GFR (MDRD) Non-Af 44 L, BUN/Creatinine Ratio 21.0 H, Glucose 80, Calcium 9.1, Total Bilirubin 0.70, AST 54 H, ALT 34, Alkaline Phosphatase 82, Total Protein 6.3 L, Albumin 2.9 L, Globulin 3.4, Albumin/Globulin Ratio 0.9, Triglycerides 93, Cholesterol 157, LDL Cholesterol 104, VLDL Cholesterol 19, HDL Cholesterol 34 L Current Medications Acetaminophen (Tylenol) 650 mg PO Q4H PRN PRN PRN Reason: Headache/Temp>99F Acetaminophen (Tylenol) 650 mg RECTAL Q4H PRN PRN PRN Reason: Headache/Temp>99F Acetaminophen (Tylenol Liquid) 650 mg NG Q4H PRN PRN PRN Reason: Headache/Temp>99F Al Hydroxide/Mg Hydroxide (Mylanta Ii) 30 ml PO Q6H PRN PRN PRN Reason: Gastric burning Aspirin (Aspirin, Baby) 81 mg PO DAILY@0800 [facility] Last Admin: 03/12/18 16:34 Dose: 81 mg Atorvastatin Calcium (Lipitor) 80 mg PO DAILY@2200 [facility] Last Admin: 03/12/18 21:47 Dose: 80 mg Dicyclomine HCl (Bentyl) 20 mg PO Q6H PRN PRN PRN Reason: abdominal discomfort Folic Acid (Folic Acid) 1 mg PO DAILY@0800 [facility] Stop: 03/15/18 08:01 Heparin Sodium (Porcine) (Heparin Na) 5,000 unit SC Q8 [facility] Last Admin: 03/13/18 06:12 Dose: 5,000 unit Dextrose/Lactated Ringer's () 1,000 mls @ 150 mls/hr IV .Q6H40M [facility] Last Admin: 03/13/18 03:32 Dose: 150 mls/hr Labetalol HCl (Trandate) 10 mg IV Q4H PRN PRN PRN Reason: SBP > 160, hold for HR < 60 Lorazepam (Ativan) 2 mg PO Q2H PRN PRN; Protocol PRN Reason: CIWA score > 8 but <15 Lorazepam (Ativan) 2 mg IV Q2H PRN PRN; Protocol PRN Reason: CIWA score > 8 but <15 Lorazepam (Ativan) 2 mg PO UD PRN; Protocol PRN Reason: CIWA score >/=15. Lorazepam (Ativan) 2 mg IV UD PRN; Protocol PRN Reason: CIWA score >/=15. Magnesium Hydroxide (Milk Of Magnesia) 30 ml PO DAILY PRN PRN Reason: Constipation Multivitamins/Minerals (Multivitamin With Minerals) 1 [facility] Ondansetron HCl (Zofran) 4 mg IV Q8H PRN PRN PRN Reason: NAUSEA Pantoprazole Sodium (Protonix) 20 mg PO BID [facility] Last Admin: 03/12/18 21:47 Dose: 20 mg Potassium Bicarb/Potassium Chloride (Potassium Chl 25 Meq Eff (For Liquid)) 50 meq PO X1 ONE Stop: 03/13/18 08:08 Promethazine HCl (Phenergan) 12.5 mg IV Q6H PRN PRN PRN Reason: NAUSEA/VOMITING Sodium Chloride () 5 - 30 ml IV UD PRN PRN Reason: SALINE FLUSH Thiamine HCl (Vitamin B1) 100 mg [facility] Stop: 03/15/18 08:01 Last Admin: 03/12/18 16:34 Dose: 100 mg Medical Necessity - Tobacco Use Smoking Status: Former smoker Tobacco Use: Non-smoker Assessment/Plan All Active Problems Alcoholic ketoacidosis (Acute) Stroke (Acute) Hyponatremia (Acute) LEENA (acute kidney injury) (Acute) The patient is a 67 y/o M w/ PMHx: HTN, HLD, Gout, recent penitentiary and onset heavy EtOH consumption starting ~ 4 weeks prior w/ 6-8 [place] hard lemonades per day w/ onset over this same timeline gait disturbance, frequent falling, not specifically able to tell a specific side with additionally dysarthria. (1) Ataxia, frequent falls, dysarthria concerning for CVA: In the ED work-up included T 97.4, heart rate 66, BP 114/83, respiratory rate 18, 98% on room air, CBC with WBC 11.7, hemoglobin 15.8, platelet 283 with left shift, coags with PT 20.9, INR 1.8, PTT 34.5, CMP with sodium 132, chloride 93, carbon dioxide 18, anion gap 21, BUN/Cr 55/2.46, AST/ALT 57/44, alkaline phosphatase 120, troponin 0.019, ethyl alcohol less than 3, acetone small CT brain with no acute intracranial process, chest x-ray with no acute findings. Admitted to PCU, treated acute presentation #2 and #3 with improvement, pending MRI Brain, MRA Head and Neck, will obtain 03/14/18 ECHO, PT/OT/Speech/Nutrition evaluation per protocol. Neurology consulted for evaluation. Given timeline 3-4 weeks, if HTN elevated will initiate therapy; however, remains appropriate, started on baby asa therapy as not previously taking, started high dose statin w/ AM FLP not severe appearing w/ low HDL, maintain on fall precautions, Mag 1.6 with supplementation, TSH normal. (2) Alcoholic ketoacidosis: CMP with sodium 132, chloride 93, carbon dioxide 18, anion gap 21, BUN/Cr 55/2.46, AST/ALT 57/44, alkaline phosphatase 120, troponin 0.019, ethyl alcohol less than 3, acetone small, initiated on D5LR, w/ repeat BMP q 4 hours x 3 to trend and assure improvement, repeat CMP 03/13/18 improved w/ only noted K 3.3, BUN/Cr 35/1.67, AST/ALT 54/34, near baseline. Mag, Phos not severe appearing. Maintain on CIWA. Maintain on MVI, thiamine, folic acid. Nutrition consulted. CM consulted. (2) Acute kidney injury: Secondary to acute presentation, #1, #2, #3. Admission BUN/Cr 55/2.46, unclear baseline. Will continue to hydrate, hold nephrotoxic medications and trend BMPs. Notable improvement from admission, 03/13/18 BUN/Cr 35/1.67. (3) Hypokalemia: Admission K+ 3.3, supplementation given, repeat level in AM. (4) EtOH Abuse: Patient notes routine consumption of 6-8 [place] hard lemonade daily x 4 weeks now, noted intermittent heavy history but onset started more regularly with penitentiary and visit to [place] from his home in [facility]. Initially had been given librium in the ED as concerned given history of acute EtOH withdrawal w/ plan to continue taper; however, following ED presentation was more alert and noting only 4 weeks of this consumption history following recent penitentiary. Will maintain on only CIWA protocol, MVI, thiamine and folic acid. Nutrition consulted. (5) Hypertension: Not elevated, unclear regimen, defer addition given normal BP current, PRN labetaolol. (6) Hyperlipidemia: Added high dose statin, FLP not marked appearing aside HDL 34. (7) Suspect Depression: Recent start heavy EtOH following penitentiary, daughter noting depression concerns as etiology. CM consulted. (8) DVT Prophylaxis: SCDs, heparin. Code Visit Inpatient E&M: 92632 Subs Hosp L2
--- NOTE | 2018-03-13 08:13 | PN_ITS ---
Patient Problems: Active and Suspected Problems Alcoholic ketoacidosis (Acute) Stroke (Acute) Hyponatremia (Acute) LEENA (acute kidney injury) (Acute) Subjective: Patient with no acute events overnight per self. Per nursing report patient stable, ongoing unchanged neurological changes with aphasia and ataxia. Patient 's more talkative today and does state that prior to presentation to the hospital he may have been laying on the floor at his home for 24-40 hours but unclear timeline. Patient denies fevers, chills, nausea, emesis, abdominal pain , chest pain or dyspnea. Objective: Physical Examination: General: awake, alert, oriented x 3, cooperative, seated upright in bed in no apparent distress. Skin: normal color, turgor, no icterus, cyanosis notably dry skin especially the lower extremities with flaking and occasional abrasion to lower extremities , very staged. HEENT: AT/NC, EOMI, PERRLA, improved MMM. Lungs: CTA bilaterally, moderate effort, mild decrease BL bases, no rales, ronchi or wheezing. Heart: Regular rate and rhythm; no gallop, rub audible. Abdomen: soft, NTTP, ND, normal BS.. Extremities: no cyanosis, clubbing, or edema. Neurological: patient awake, alert, oriented x 3; cognitive function intact; pupils equally reactive to light and accomodation; cranial nerves II-XII grossly normal, moving all 4 extremities, no focal deficits, strength remains severely globally decreased, sensation intact, negative babinski, abnormal R sided FTN and HTS, dysarthria present. Psychiatric: affect appears remains mildly flat, no acute evidence of depressive or anxiety feelings. Vitals/I&O's: Vital Signs Temp Pulse Resp BP Pulse Ox 97.9 F 67 18 107/75 94 03/13/18 05:45 03/13/18 05:45 03/13/18 05:45 03/13/18 05:45 03/13/18 05:45 Oxygen Delivery Method Room Air Weight: 151 lb 10.848 oz Body Mass Index (BMI) 26.0 Intake and Output for Last 24 Hours 03/11/18 03/12/18 03/13/18 23:59 23:59 23:59 Intake Total 8 / 8 861 / 861 Balance 8 / 2217 861 / 861 Laboratory Results 03/12/18 15:03: Sodium 136, Potassium 4.1, Chloride 97 L, Carbon Dioxide 20.0 L , Anion Gap 19 H, BUN 49 H, Creatinine 1.97 H, Estim Creat Clear Calc 29.63, Est GFR (MDRD) Af Amer 44 L, Est GFR (MDRD) Non-Af 36 L, BUN/Creatinine Ratio 24.9 H, Glucose 91, Calcium 9.1, Phosphorus 3.3, Magnesium 1.6, TSH 1.60 03/12/18 15:29: POC Glucose 99 03/12/18 18:40: Sodium 133 L, Potassium 3.7, Chloride 98, Carbon Dioxide 23.0, Anion Gap 12, BUN 47 H, Creatinine 2.00 H, Estim Creat Clear Calc 29.19, Est GFR (MDRD) Af Amer 43 L, Est GFR (MDRD) Non-Af 35 L, BUN/Creatinine Ratio 23.5 H , Glucose 93, Calcium 9.0 03/12/18 22:20: Sodium 135 L, Potassium 3.4 L, Chloride 100, Carbon Dioxide 24.0 , Anion Gap 11, BUN 44 H, Creatinine 1.78 H, Estim Creat Clear Calc 32.80, Est GFR (MDRD) Af Amer 49 L, Est GFR (MDRD) Non-Af 40 L, BUN/Creatinine Ratio 24.7 H , Glucose 108 H, Calcium 8.9 03/13/18 03:35: Urine Opiates Screen NEGATIVE, Urine Methadone Screen NEGATIVE, Ur Barbiturates Screen NEGATIVE, Ur Phencyclidine Scrn NEGATIVE, Ur Amphetamines Screen NEGATIVE, U Methamphetamin-MDMA NEGATIVE, U Benzodiazepines Scrn POSITIVE H, Urine Cocaine Screen NEGATIVE, U Cannabinoids Screen NEGATIVE, Ur Drug Screen Comment 03/13/18 03:35: Urine Creatinine 85.80 03/13/18 03:35: Urine Color Yellow, Urine Clarity Clear, Urine pH 5.0, Ur Specific [place] 1.015, Urine Protein Negative, Urine Glucose (UA) Normal, Urine Ketones 15 H, Urine Occult Blood Negative, Urine Nitrite Negative, Urine Bilirubin Negative, Urine Urobilinogen Normal, Ur Leukocyte Esterase Negative, Urine RBC 0 SEEN, Urine WBC 0 SEEN, Ur Squamous Epith Cells 0-5 SEEN, Urine Bacteria 0 SEEN, Urine Mucus 0 SEEN 03/13/18 03:35: Ur Random Sodium 61 03/13/18 05:32: WBC 5.7, RBC 4.12 L, Hgb 12.7 L, Hct 38.3 L, MCV 93.0, MCH 30.8 , MCHC 33.2, RDW 14.1, RDW Differential 46.4 H, Plt Count 176, MPV 10.8, Immature Gran % (Auto) 0.200, Neut % (Auto) 69.1, Lymph % (Auto) 13.9 L, [place] % (Auto) 11.1 H, Eos % (Auto) 5.2 H, Baso % (Auto) 0.5, Absolute Neuts (auto) 4.0 , Absolute Lymphs (auto) 0.80 L, Total Counted Not Reportable 03/13/18 05:32: Sodium 139, Potassium 3.3 L, Chloride 102, Carbon Dioxide 27.0, Anion Gap 10, BUN 35 H, Creatinine 1.67 H, Estim Creat Clear Calc 34.96, Est GFR (MDRD) Af Amer 53 L, Est GFR (MDRD) Non-Af 44 L, BUN/Creatinine Ratio 21.0 H , Glucose 80, Calcium 9.1, Total Bilirubin 0.70, AST 54 H, ALT 34, Alkaline Phosphatase 82, Total Protein 6.3 L, Albumin 2.9 L, Globulin 3.4, Albumin/ Globulin Ratio 0.9, Triglycerides 93, Cholesterol 157, LDL Cholesterol 104, VLDL Cholesterol 19, HDL Cholesterol 34 L Current Medications Acetaminophen (Tylenol) 650 mg PO Q4H PRN PRN PRN Reason: Headache/Temp>99F Acetaminophen (Tylenol) 650 mg RECTAL Q4H PRN PRN PRN Reason: Headache/Temp>99F Acetaminophen (Tylenol Liquid) 650 mg NG Q4H PRN PRN PRN Reason: Headache/Temp>99F Al Hydroxide/Mg Hydroxide (Mylanta Ii) 30 ml PO Q6H PRN PRN PRN Reason: Gastric burning Aspirin (Aspirin, Baby) 81 mg PO DAILY@0800 [facility] Last Admin: 03/12/18 16:34 Dose: 81 mg Atorvastatin Calcium (Lipitor) 80 mg PO DAILY@2200 [facility] Last Admin: 03/12/18 21:47 Dose: 80 mg Dicyclomine HCl (Bentyl) 20 mg PO Q6H PRN PRN PRN Reason: abdominal discomfort Folic Acid (Folic Acid) 1 mg PO DAILY@0800 [facility] Stop: 03/15/18 08:01 Heparin Sodium (Porcine) (Heparin Na) 5,000 unit SC Q8 [facility] Last Admin: 03/13/18 06:12 Dose: 5,000 unit Dextrose/Lactated Ringer's () 1,000 mls @ 150 mls/hr IV .Q6H40M [facility] Last Admin: 03/13/18 03:32 Dose: 150 mls/hr Labetalol HCl (Trandate) 10 mg IV Q4H PRN PRN PRN Reason: SBP > 160, hold for HR < 60 Lorazepam (Ativan) 2 mg PO Q2H PRN PRN; Protocol PRN Reason: CIWA score > 8 but <15 Lorazepam (Ativan) 2 mg IV Q2H PRN PRN; Protocol PRN Reason: CIWA score > 8 but <15 Lorazepam (Ativan) 2 mg PO UD PRN; Protocol PRN Reason: CIWA score >/=15. Lorazepam (Ativan) 2 mg IV UD PRN; Protocol PRN Reason: CIWA score >/=15. Magnesium Hydroxide (Milk Of Magnesia) 30 ml PO DAILY PRN PRN Reason: Constipation Multivitamins/Minerals ([facility]ivit[facility] With Minerals) [facility] Ondansetron HCl (Zofran) 4 mg IV Q8H PRN PRN PRN Reason: NAUSEA Pantoprazole Sodium (Protonix) 20 mg PO BID [facility] Last Admin: 03/12/18 21:47 Dose: 20 mg Potassium Bicarb/Potassium Chloride (Potassium Chl 25 Meq Eff (For Liquid)) 50 meq PO X1 ONE Stop: 03/13/18 08:08 Promethazine HCl (Phenergan) 12.5 mg IV Q6H PRN PRN PRN Reason: NAUSEA/VOMITING Sodium Chloride () 5 - 30 ml IV UD PRN PRN Reason: SALINE FLUSH Thiamine HCl (Vitamin B1) [facility] Stop: 03/15/18 08:01 Last Admin: 03/12/18 16:34 Dose: 100 mg Medical Necessity - Tobacco Use Smoking Status: Former smoker Tobacco Use: Non-smoker Assessment/Plan All Active Problems Alcoholic ketoacidosis (Acute) Stroke (Acute) Hyponatremia (Acute) LEENA (acute kidney injury) (Acute) The patient is a 67 y/o M w/ PMHx: HTN, HLD, Gout, recent senior living and onset heavy EtOH consumption starting ~ 4 weeks prior w/ 6-8 [employer] hard lemonades per day w/ onset over this same timeline gait disturbance, frequent falling, not specifically able to tell a specific side with additionally dysarthria. (1) Ataxia, frequent falls, dysarthria concerning for CVA: In the ED work-up included T 97.4, heart rate 66, BP 114/83, respiratory rate 18, 98% on room air , CBC with WBC 11.7, hemoglobin 15.8, platelet 283 with left shift, coags with PT 20.9, INR 1.8, PTT 34.5, CMP with sodium 132, chloride 93, carbon dioxide 18 , anion gap 21, BUN/Cr 55/2.46, AST/ALT 57/44, alkaline phosphatase 120, troponin 0.019, ethyl alcohol less than 3, acetone small CT brain with no acute intracranial process, chest x-ray with no acute findings. Admitted to PCU, treated acute presentation #2 and #3 with improvement, pending MRI Brain, MRA Head and Neck, will obtain 03/14/18 ECHO, PT/OT/Speech/Nutrition evaluation per protocol. Neurology consulted for evaluation. Given timeline 3-4 weeks, if HTN elevated will initiate therapy; however, remains appropriate, started on baby asa therapy as not previously taking, started high dose statin w/ AM FLP not severe appearing w/ low HDL, maintain on fall precautions, Mag 1.6 with supplementation, TSH normal. (2) Alcoholic ketoacidosis: CMP with sodium 132, chloride 93, carbon dioxide 18 , anion gap 21, BUN/Cr 55/2.46, AST/ALT 57/44, alkaline phosphatase 120, troponin 0.019, ethyl alcohol less than 3, acetone small, initiated on D5LR, w/ repeat BMP q 4 hours x 3 to trend and assure improvement, repeat CMP 03/13/18 improved w/ only noted K 3.3, BUN/Cr 35/1.67, AST/ALT 54/34, near baseline. Mag , Phos not severe appearing. Maintain on CIWA. Maintain on MVI, thiamine, folic acid. Nutrition consulted. CM consulted. (2) Acute kidney injury: Secondary to acute presentation, #1, #2, #3. Admission BUN/Cr 55/2.46, unclear baseline. Will continue to hydrate, hold nephrotoxic medications and trend BMPs. Notable improvement from admission, 03/13/18 BUN/Cr 35/1.67. (3) Hypokalemia: Admission K+ 3.3, supplementation given, repeat level in AM. (4) EtOH Abuse: Patient notes routine consumption of 6-8 [place] hard lemonade daily x 4 weeks now, noted intermittent heavy history but onset started more regularly with senior living and visit to [place] from his home in [facility]. Initially had been given librium in the ED as concerned given history of acute EtOH withdrawal w/ plan to continue taper; however, following ED presentation was more alert and noting only 4 weeks of this consumption history following recent senior living. Will maintain on only CIWA protocol, MVI, thiamine and folic acid. Nutrition consulted. (5) Hypertension: Not elevated, unclear regimen, defer addition given normal BP current, PRN labetaolol. (6) Hyperlipidemia: Added high dose statin, FLP not marked appearing aside HDL 34. (7) Suspect Depression: Recent start heavy EtOH following senior living, daughter noting depression concerns as etiology. CM consulted. (8) DVT Prophylaxis: SCDs, heparin. Code Visit Inpatient E&M: 38510 Subs Hosp L2
[2018-03-13] MEDS: Pantoprazole Sodium 20 MG Tablet PO ×2 (09:01→21:16)
[2018-03-13] MEDS: Multivitamins,Ther W-Minerals Tablet 1 TABLET PO (09:01)
[2018-03-13] MEDS: Thiamine Hydrochloride 100 MG Tablet PO ×2 (09:02→17:45)
[2018-03-13] MEDS: Aspirin 81 MG TAB.CHEW PO (09:02)
[2018-03-13] MEDS: Folic Acid 1 MG Tablet PO (09:02)
--- NOTE | 2018-03-13 14:38 | MRI_ITS ---
STUDY: MRA OF THE HEAD WITHOUT CONTRAST REASON FOR EXAM: Male, 67 years old. CVA. Dysarthria. Falls. TECHNIQUE: 3-D [id number] (TOF) imaging was performed with MIPs. The study was performed unenhanced. COMPARISON: None. 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 Normal cavernous segment and petrous segment of the right internal carotid artery. Faint flow in the cavernous segment of the left internal carotid artery is presumably collateral flow from the right carotid across patent anterior communicating artery. Normal right A1 segmens of the anterior cerebral artery. Normal left A1 segment of the anterior cerebral artery. Normal intact anterior communicating artery (ACOM). Normal bilateral A2 segments of the anterior cerebral arteries. Normal right M1 and M2 segments of the middle cerebral arteries, with a normal M1 bifurcation. Normal left M1 and M2 segments of the middle cerebral arteries, with a normal M1 bifurcation. No visible right posterior communicating artery (PCOM). No visible left posterior communicating artery (PCOM). No visible intradural segments of both vertebral arteries. No visible VB segment. The rest of the basilar artery is normal. The visualized bilateral superior cerebellar (SCA) arteries are normal. Normal bilateral P1, P2 and visualized P3 segments of the posterior cerebral arteries. There is no demonstrated aneurysm of the q[place] of [place]. There is no major vessel occlusion or hemodynamically significant stenosis. There is no demonstrated abnormality of the visualized brain. MRI/MRA Head ONLY without Contrast IMPRESSION: 1. Nonvisualization of the petrous segment of the left internal carotid artery and the intradural segments of both vertebral arteries. Artifacts from dental hardware versus true occlusion. 2. No other suspicious abnormalities of the anterior and posterior intracranial circulation. Recommendation: CTA of the head for more definite evaluation due to dental hardware artifacts. Electronically Signed: Luis Manuel Ontiveros MD at 15:44 EDT , Service support ,
--- NOTE | 2018-03-13 14:38 | MRI_ITS ---
STUDY: MRI BRAIN WITHOUT CONTRAST REASON FOR EXAM: Male, 67 years old. CVA. Dysarthria. Falls. TECHNIQUE: Standardized multiplanar fat and water weighted pulse sequences were obtained. Nonremovable dental hardware causing signal distortion artifacts. COMPARISON: None. FINDINGS: Signal distortion artifacts in the frontal poles coming from dental hardware. No suspicious restricted diffusion. Normal size of the ventricles and extra-axial spaces for the patient's age. Multiple subcortical and periventricular white matter T2 FLAIR hyperintensity foci in both cerebral hemispheres are chronic white matter ischemic changes. Normal bilateral basal ganglia. Normal thalami. There is no extra-axial fluid accumulation. Normal flow voids within the major intracranial circulation suggesting patency by spin echo criteria. Normal sella turcica, pituitary gland, infundibular stalk, optic chiasm and hypothalamus. Normal tectal plate and pineal gland. Normal midbrain, doris and medulla. Normal cerebellum. Normal basal cisterns. Normal bilateral temporal bones. Normal bilateral internal auditory canals. No demonstrated orbital abnormality, within the constraints of a routine brain study. Normal visualized paranasal sinuses. Normal calvarium and skull base. Normal visualized soft tissue structures. Normal visualized upper cervical spine. MRI/Brain without Contrast IMPRESSION: 1. No MRI evidence of acute or subacute ischemic infarct. 2. Multiple chronic white matter ischemic changes in both cerebral hemispheres. Electronically Signed: Luis Manuel Ontiveros MD at 15:38 EDT , Service support ,
--- NOTE | 2018-03-13 14:38 | MRI_ITS ---
STUDY: MRA NECK WITHOUT CONTRAST REASON FOR EXAM: Male, 67 years old. CVA TECHNIQUE: Source images were obtained, MIPs were performed. The study was performed unenhanced. Motion limited exam. COMPARISON: None. FINDINGS: RIGHT CAROTID ARTERIES: Normal right common carotid artery (CCA). Normal right common carotid bulb. Central signal loss proximal right ICA. Normal visualized cervical portion of the right internal carotid artery. Normal origin of the right external carotid artery (ECA). LEFT CAROTID ARTERIES: Normal left common carotid artery (CCA). Normal left common carotid bulb. Central signal loss proximal left ICA. Normal visualized cervical portion of the left internal carotid artery. Normal origin of the left external carotid artery (ECA). VERTEBRAL ARTERIES: Normal antegrade flow within the bilateral vertebral artery without a hemodynamically significant stenosis. MRI/MRA Neck without Contrast IMPRESSION: Central signal loss proximal bilateral ICAs probably due to flow void artifact but thrombus is disc difficult to exclude. CTA would be more sensitive if clinically warranted. Electronically Signed: Rome Galvan MD at 17:13 EDT , Service support ,
[2018-03-13] MEDS: Atorvastatin Calcium 80 MG Tablet PO (21:16)
[2018-03-14] VITALS (14 sets, daily range): BP systolic 103–128; BP diastolic 67–85; PULSE 73–90; RESP 16–18; TEMP 36.6–37.1; O2SAT 93–99; BMI 26.0
[2018-03-14] MEDS: Heparin Injection (Vial) 5,000 UNIT/ML VIAL 5000 UNIT SC ×3 (05:13→21:48)
[2018-03-14 06:51] LABS: Absolute Lymphocyte Count 0.35 X10^3/ul (0.83-4.51); Absolute Neutrophil Count 5.8 X10^3/uL (2.0-7.7); Basophil# 0.03 X10^3/uL; Basophil% 0.4 % (0-1); Eosinophil# 0.27 X10^3/uL; Hemoglobin 12.4 g/dl (13.0-16.5); Lymphocyte # 0.35 X10^3/ul (4.0); Lymphocyte % 5.1 % (19-41); Mean Corp Hgb Conc 32.6 g/gl (32-36); Mean Corpuscular Hgb 30.8 pg (27.0-32.0); Mean Corpuscular Volume 94.5 fL (80-94); Mean Platelet Vol. 10.8 fl (6.2-12.0); Monocyte# 0.36 X10^3/uL; Monocyte% 5.3 % (0-10); Neutrophil # 5.79 X10^3/uL (2.7-7.7); Neutrophil % 85.2 % (47-70); Platelet Count 157 K/mm3 (150-450); RBC Distribution Width CV 14.3 % (11.6-14.6); RBC Distribution Width SD 47.4 fl (35.1-43.9); Red Blood Count 4.02 M/mm3 (4.6-6.2); White Blood Count 6.8 K/mm3 (4.4-11.0)
[2018-03-14 06:52] LABS: Differential Indicated SCAN CRITERIA MET; POSITIVE COUNT NO; POSITIVE DIFFERENTIAL YES; POSITIVE MORPHOLOGY NO
[2018-03-14 07:02] LABS: ALB/GLOB Ratio 0.9 RATIO (0.9-2.4); AST(SGOT) 55 U/L (15-37); Alanine Aminotransfer ALT/SGPT 40 U/L (16-61); Alkaline Phosphatase 89 U/L (45-117); Anion Gap 8 (5-15); BUN 24 mg/dL (7-18); BUN/Creat Ratio 17.5 RATIO (10-20); Calcium,Total 8.8 mg/dL (8.5-10.1); Chloride 104 mmol/L (98-107); Creatinine, Serum 1.37 mg/dL (0.70-1.30); EST Glomerular Filtration Rate 55 mL/min (>60); Est Glom Filt Rate - Afr Amer 66 mL/min (>60); Estimated Creatinine Clearance 42.61 ml/min; Globulin 3.3 g/dL (2.2-4.2); Glucose 88 mg/dL (74-106); Magnesium 1.8 mg/dL (1.6-2.6); Potassium 3.7 mmol/L (3.5-5.1); Protein, Total 6.3 g/dL (6.4-8.2); Sodium Level 140 mmol/L (136-145)
[2018-03-14] MEDS: Thiamine Hydrochloride 100 MG Tablet PO ×2 (09:44→18:28)
[2018-03-14] MEDS: Multivitamins,Ther W-Minerals Tablet 1 TABLET PO (09:44)
[2018-03-14] MEDS: Aspirin 81 MG TAB.CHEW PO (09:44)
[2018-03-14] MEDS: Folic Acid 1 MG Tablet PO (09:44)
[2018-03-14] MEDS: Pantoprazole Sodium 20 MG Tablet PO ×2 (09:44→21:48)
--- NOTE | 2018-03-14 10:00 | CON.PCM_ITS ---
Reason for Consult Date of Consultation: 03/14/18 Reason for Consultation: pt reports falls History of Present Illness: The patient is a 67 year old M who reports he is here for falls, heavy etoh consumption as below, reports 48yrs. reports falls since a right THR two years ago, progressively worse. lives with in [place], but also lives in another house (?). Per admission H&P: The patient is a 67 y/o M w/ PMHx: HTN, HLD, Gout, recent skilled nursing and onset heavy EtOH consumption starting ~ 4 weeks prior w/ 6-8 [employer] hard lemonades per day w/ onset over this same timeline gait disturbance, frequent falling, not specifically able to tell a specific side with additionally dysarthria. In the ED work-up included T 97.4, heart rate 66, BP 114/83, respiratory rate 18, 98% on room air, CBC with WBC 11.7, hemoglobin 15.8 , platelet 283 with left shift, coags with PT 20.9, INR 1.8, PTT 34.5, CMP with sodium 132, chloride 93, carbon dioxide 18, anion gap 21, BUN/Cr 55/2.46, AST/ ALT 57/44, alkaline phosphatase 120, troponin 0.019, ethyl alcohol less than 3, acetone small, CT brain with no acute intracranial process, chest x-ray with no acute findings. In the ED given initial concern for prolonged alcohol abuse history patient administered Librium 50 mg p.o. ?1 in addition to normal saline 1 L bolus in addition to initiation following lab results to D5LR at 150 cc/hr, thiamine 100 mg IV ?1. Past Medical History Past Medical History (Chronic Problems): Chronic Problems Abnormal LFTs (Chronic) Alcohol abuse (Chronic) HTN (hypertension) (Chronic) HLD (hyperlipidemia) (Chronic) Gout (Chronic) Allergies No Known Allergies Allergy (Verified 03/12/18 11:36) Home Medications: Ambulatory Orders Medication Instructions Recorded Unobtainable [Unobtainable] 03/12/18 Surgical History: - - R THR. 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 Smoking Status: Former smoker Tobacco Use: Non-smoker Alcohol: Heavy - 6-8 normal size [employer] hard lemonade daily. Drugs: None - *Family History Maternal History Items: - - No marked maternal history including DM, HTN, HD. 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, as well as commercial service technician - Physical Exam General: Alert, Cooperative, No apparent distress Neurological: Cranial nerves II-XII grossly intact, - - mild asterixis severe proprioceptive loss in toes Psych/Mental Status: Normal Affect Vital Signs Temp Pulse Resp BP Pulse Ox 37.1 C 88 18 113/73 93 03/14/18 09:39 03/14/18 09:39 03/14/18 09:39 03/14/18 09:39 03/14/18 09:39 Oxygen Delivery Method Room Air Weight: 68.8 kg Body Mass Index (BMI) 26.0 Intake and Output for Last 24 Hours 03/12/18 03/13/18 03/14/18 23:59 23:59 23:59 Intake Total 2218 / 2218 2290 / 2290 0 / 0 Output Total 500 / 500 0 / 0 Balance 2218 / 2218 1790 / 1790 0 / 0 Laboratory Tests Past 24 Hrs 03/14/18 03/14/18 05:58 05:58 WBC 6.8 RBC 4.02 L Hgb 12.4 L Hct 38.0 L MCV 94.5 H MCH 30.8 MCHC 32.6 RDW 14.3 RDW Differential 47.4 H Plt Count 157 MPV 10.8 Immature Gran % (Auto) 0.000 Neut % (Auto) 85.2 H Lymph % (Auto) 5.1 L Winn % (Auto) 5.3 Eos % (Auto) 4.0 Baso % (Auto) 0.4 Absolute Neuts (auto) 5.8 Absolute Lymphs (auto) 0.35 L Total Counted Not Reportable Sodium 140 Potassium 3.7 Chloride 104 Carbon Dioxide 28.0 Anion Gap 8 BUN 24 H Creatinine 1.37 H Estim Creat Clear Calc 42.61 Est GFR (MDRD) Af Amer 66 Est GFR (MDRD) Non-Af 55 L BUN/Creatinine Ratio 17.5 Glucose 88 Calcium 8.8 Magnesium 1.8 Total Bilirubin 0.60 AST 55 H ALT 40 Alkaline Phosphatase 89 Total Protein 6.3 L Albumin 3.0 L Globulin 3.3 Albumin/Globulin Ratio 0.9 MRI reviewed, no acute Assessment/Plan All Active Problems Alcoholic ketoacidosis (Acute) Stroke (Acute) Hyponatremia (Acute) LEENA (acute kidney injury) (Acute) encephalopathy likely due to chronic etoh consumption,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
--- NOTE | 2018-03-14 12:00 | CASEMGMT ---
Face to Face with patient for initial transition planning/care coordination assessment. RN CM introduced self and role at [facility], pt voices understanding and consents to assessment at this time. Pt is sitting up in bed in no distress at this time. Pt is A/O x4 at this time and answers most questions appropriately at this time. Some of pt's answers do not make sense at this time but then pt will answer again correctly. Care providers, pharmacy, and demographics verified. See attached link. Pt voices concerns regarding insurance at this time. Pt asks this RN CM to call his in regards to same and this RN CM is unable to reach at this time after multiple attempts. This RN CM will attempt again later. Advised pt to ask for CM if any further questions/concerns/needs arise, voices understanding. PLAN: SKY Ly RN, CM
--- NOTE | 2018-03-14 17:36 | PCM.PN.HOSP ---
Patient Problems: Active and Suspected Problems Alcoholic ketoacidosis (Acute) Stroke (Acute) Hyponatremia (Acute) LEENA (acute kidney injury) (Acute) Subjective: feels good. denies any recent alcohol consumption. Vitals/I&O's: Vital Signs Temp Pulse Resp BP Pulse Ox 36.9 C 86 18 103/78 96 03/14/18 13:30 03/14/18 15:21 03/14/18 13:30 03/14/18 13:30 03/14/18 13:30 Oxygen Delivery Method Room Air Weight: 68.8 kg Body Mass Index (BMI) 26.0 Intake and Output for Last 24 Hours 03/12/18 03/13/18 03/14/18 23:59 23:59 23:59 Intake Total 2218 / 2218 2290 / 2290 525 / 525 Output Total 500 / 500 0 / 0 Balance 2218 / 2218 1790 / 1790 525 / 525 General: Alert, - - oreinted x 2 HEENT: Atraumatic, PERRLA, EOMI, Normocephalic Oral: Moist Mucosa, No Gingival or Mucosal Lesions/ Ulcerations Neck: No Nodes, Thyroid Normal Size and Texture Lungs: Clear to auscultation, Normal air movement, No rhonchi, No wheeze Cardiovascular: Regular rate, Regular Rhythm, Normal S1, Normal S2, No murmurs Abdomen: Bowel Sounds Present, Soft, Non Tender, Non-Distended, No Hepato-splenomegaly Extremities: No edema, No Calf Tenderness Skin: No rashes, No breakdown Musculoskeletal: No Tenderness to Palpation of Joints or Extremities, No Muscle Wasting Psych/Mental Status: Normal Affect, Appropriate Microbiology Past 72 Hours 03/13/18 03:35 Urine, Clean Catch Urine Culture - Final Proteus sp. Laboratory Results 03/14/18 05:58: WBC 6.8, RBC 4.02 L, Hgb 12.4 L, Hct 38.0 L, MCV 94.5 H, MCH 30.8, MCHC 32.6, RDW 14.3, RDW Differential 47.4 H, Plt Count 157, MPV 10.8, Immature Gran % (Auto) 0.000, Neut % (Auto) 85.2 H, Lymph % (Auto) 5.1 L, [place] % (Auto) 5.3, Eos % (Auto) 4.0, Baso % (Auto) 0.4, Absolute Neuts (auto) 5.8, Absolute Lymphs (auto) 0.35 L, Total Counted Not Reportable 03/14/18 05:58: Sodium 140, Potassium 3.7, Chloride 104, Carbon Dioxide 28.0, Anion Gap 8, BUN 24 H, Creatinine 1.37 H, Estim Creat Clear Calc 42.61, Est GFR (MDRD) Af Amer 66, Est GFR (MDRD) Non-Af 55 L, BUN/Creatinine Ratio 17.5, Glucose 88, Calcium 8.8, Magnesium 1.8, Total Bilirubin 0.60, AST 55 H, ALT 40, Alkaline Phosphatase 89, Total Protein 6.3 L, Albumin 3.0 L, Globulin 3.3, Albumin/Globulin Ratio 0.9 Current Medications Acetaminophen (Tylenol) 650 mg PO Q4H PRN PRN PRN Reason: Headache/Temp>99F Acetaminophen (Tylenol) 650 mg RECTAL Q4H PRN PRN PRN Reason: Headache/Temp>99F Acetaminophen (Tylenol Liquid) 650 mg NG Q4H PRN PRN PRN Reason: Headache/Temp>99F Al Hydroxide/Mg Hydroxide (Mylanta Ii) 30 ml PO Q6H PRN PRN PRN Reason: Gastric burning Aspirin (Aspirin, Baby) 81 mg PO DAILY@0800 [facility] Last Admin: 03/14/18 09:44 Dose: 81 mg Atorvastatin Calcium (Lipitor) 80 mg PO DAILY@2200 [facility] Last Admin: 03/13/18 21:16 Dose: 80 mg Dicyclomine HCl (Bentyl) 20 mg PO Q6H PRN PRN PRN Reason: abdominal discomfort Folic Acid (Folic Acid) 1 mg PO DAILY@0800 [facility] Stop: 03/15/18 08:01 Last Admin: 03/14/18 09:44 Dose: 1 mg Heparin Sodium (Porcine) (Heparin Na) 5,000 unit SC Q8 [facility] Last Admin: 03/14/18 14:49 Dose: 5,000 unit Labetalol HCl (Trandate) 10 mg IV Q4H PRN PRN PRN Reason: SBP > 160, hold for HR < 60 Magnesium Hydroxide (Milk Of Magnesia) 30 ml PO DAILY PRN PRN Reason: Constipation Multivitamins/Minerals ([facility]) [facility] Admin: 03/14/18 09:44 Dose: 1 tablet Nutritional Formula (Lactose Free) (Ensure Enlive) 120 ml PO 4X/DAY [facility] Last Admin: 03/14/18 13:39 Dose: Not Given Ondansetron HCl (Zofran) 4 mg IV Q8H PRN PRN PRN Reason: NAUSEA Pantoprazole Sodium (Protonix) 20 mg PO BID [facility] Last Admin: 03/14/18 09:44 Dose: 20 mg Promethazine HCl (Phenergan) 12.5 mg IV Q6H PRN PRN PRN Reason: NAUSEA/VOMITING Sodium Chloride () 5 - 30 ml IV UD PRN PRN Reason: SALINE FLUSH Thiamine [facility] ([facility]amin B[facility]) [facility] Stop: 03/15/18 08:01 Last Admin: 03/14/18 09:44 Dose: 100 mg Medical Necessity - Tobacco Use Smoking Status: Former smoker Tobacco Use: Non-smoker Assessment/Plan All Active Problems Alcoholic ketoacidosis (Acute) Stroke (Acute) Hyponatremia (Acute) LEENA (acute kidney injury) (Acute) 1. Metabolic encephalopathy Appears to be resolved and suspect patient is at his baseline currently Patient adamantly denies any alcohol consumption recently though does state that he has had heavy use in the past Alcohol level was negative when he arrived so that essentially rules out alcoholic ketoacidosis feel probably component patient being dehydrated There may be some component of some dementia or some kind Wernicke's encephalopathy without need to be further delineated an outpatient basis. 2. Acute kidney injury resolved Unclear the etiology but appears to be prerenal in etiology did respond to IV fluids Hep-Lock IV and monitor 3. Lactic acidosis as above, not due to alcoholic ketoacidosis Polyp possibly related with dehydration and hypotension No further workup at this time 4. Debility Therapy recommending [facility] facility and patient is in agreement Will await case management's input with insurance 5. History of alcohol abuse No evidence of delirium tremens or any withdrawal symptoms Continue with multivitamin 6. DVT prophylaxis with heparin Code Visit Inpatient E&M: 73708 Subs Hosp L2
--- NOTE | 2018-03-14 17:43 | PN_ITS ---
Patient Problems: Active and Suspected Problems Alcoholic ketoacidosis (Acute) Stroke (Acute) Hyponatremia (Acute) LEENA (acute kidney injury) (Acute) Subjective: feels good. denies any recent alcohol consumption. Vitals/I&O's: Vital Signs Temp Pulse Resp BP Pulse Ox 36.9 C 86 18 103/78 96 03/14/18 13:30 03/14/18 15:21 03/14/18 13:30 03/14/18 13:30 03/14/18 13:30 Oxygen Delivery Method Room Air Weight: 68.8 kg Body Mass Index (BMI) 26.0 Intake and Output for Last 24 Hours 03/12/18 03/13/18 03/14/18 23:59 23:59 23:59 Intake Total 2218 / 2218 2290 / 2290 525 / 525 Output Total 500 / 500 0 / 0 Balance 2218 / 2218 1790 / 1790 525 / 525 General: Alert, - - oreinted x 2 HEENT: Atraumatic, PERRLA, EOMI, Normocephalic Oral: Moist Mucosa, No Gingival or Mucosal Lesions/ Ulcerations Neck: No Nodes, Thyroid Normal Size and Texture Lungs: Clear to auscultation, Normal air movement, No rhonchi, No wheeze Cardiovascular: Regular rate, Regular Rhythm, Normal S1, Normal S2, No murmurs Abdomen: Bowel Sounds Present, Soft, Non Tender, Non-Distended, No Hepato- splenomegaly Extremities: No edema, No Calf Tenderness Skin: No rashes, No breakdown Musculoskeletal: No Tenderness to Palpation of Joints or Extremities, No Muscle Wasting Psych/Mental Status: Normal Affect, Appropriate Microbiology Past 72 Hours 03/13/18 03:35 Urine, Clean Catch Urine Culture - Final Proteus sp. Laboratory Results 03/14/18 05:58: WBC 6.8, RBC 4.02 L, Hgb 12.4 L, Hct 38.0 L, MCV 94.5 H, MCH 30.8, MCHC 32.6, RDW 14.3, RDW Differential 47.4 H, Plt Count 157, MPV 10.8, Immature Gran % (Auto) 0.000, Neut % (Auto) 85.2 H, Lymph % (Auto) 5.1 L, [place] % (Auto) 5.3, Eos % (Auto) 4.0, Baso % (Auto) 0.4, Absolute Neuts (auto) 5.8, Absolute Lymphs (auto) 0.35 L, Total Counted Not Reportable 03/14/18 05:58: Sodium 140, Potassium 3.7, Chloride 104, Carbon Dioxide 28.0, Anion Gap 8, BUN 24 H, Creatinine 1.37 H, Estim Creat Clear Calc 42.61, Est GFR (MDRD) Af Amer 66, Est GFR (MDRD) Non-Af 55 L, BUN/Creatinine Ratio 17.5, Glucose 88, Calcium 8.8, Magnesium 1.8, Total Bilirubin 0.60, AST 55 H, ALT 40, Alkaline Phosphatase 89, Total Protein 6.3 L, Albumin 3.0 L, Globulin 3.3, Albumin/Globulin Ratio 0.9 Current Medications Acetaminophen (Tylenol) 650 mg PO Q4H PRN PRN PRN Reason: Headache/Temp>99F Acetaminophen (Tylenol) 650 mg RECTAL Q4H PRN PRN PRN Reason: Headache/Temp>99F Acetaminophen (Tylenol Liquid) 650 mg NG Q4H PRN PRN PRN Reason: Headache/Temp>99F Al Hydroxide/Mg Hydroxide (Mylanta Ii) 30 ml PO Q6H PRN PRN PRN Reason: Gastric burning Aspirin (Aspirin, Baby) 81 mg PO DAILY@0800 [facility] Last Admin: 03/14/18 09:44 Dose: 81 mg Atorvastatin Calcium (Lipitor) 80 mg PO DAILY@2200 [facility] Last Admin: 03/13/18 21:16 Dose: 80 mg Dicyclomine HCl (Bentyl) 20 mg PO Q6H PRN PRN PRN Reason: abdominal discomfort Folic Acid (Folic Acid) 1 mg PO DAILY@0800 [facility] Stop: 03/15/18 08:01 Last Admin: 03/14/18 09:44 Dose: 1 mg Heparin Sodium (Porcine) (Heparin Na) 5,000 unit SC Q8 [facility] Last Admin: 03/14/18 14:49 Dose: 5,000 unit Labetalol HCl (Trandate) 10 mg IV Q4H PRN PRN PRN Reason: SBP > 160, hold for HR < 60 Magnesium Hydroxide (Milk Of Magnesia) 30 ml PO DAILY PRN PRN Reason: Constipation Multivitamins/Minerals (Multivitamin With Minerals) [facility] Last Admin: 03/14/18 09:44 Dose: 1 tablet Nutritional Formula (Lactose Free) (Ensure Enlive) 120 ml PO 4X/DAY [facility] Last Admin: 03/14/18 13:39 Dose: Not Given Ondansetron HCl (Zofran) 4 mg IV Q8H PRN PRN PRN Reason: NAUSEA Pantoprazole Sodium (Protonix) 20 mg PO BID [facility] Last Admin: 03/14/18 09:44 Dose: 20 mg Promethazine HCl (Phenergan) 12.5 mg IV Q6H PRN PRN PRN Reason: NAUSEA/VOMITING Sodium Chloride () 5 - 30 ml IV UD PRN PRN Reason: SALINE FLUSH Thiamine HCl (Vitamin B1) [facility] Stop: 03/15/18 08:01 Last Admin: 03/14/18 09:44 Dose: 100 mg Medical Necessity - Tobacco Use Smoking Status: Former smoker Tobacco Use: Non-smoker Assessment/Plan All Active Problems Alcoholic ketoacidosis (Acute) Stroke (Acute) Hyponatremia (Acute) LEENA (acute kidney injury) (Acute) 1. Metabolic encephalopathy * Appears to be resolved and suspect patient is at his baseline currently * Patient adamantly denies any alcohol consumption recently though does state that he has had heavy use in the past * Alcohol level was negative when he arrived so that essentially rules out alcoholic ketoacidosis feel probably component patient being dehydrated * There may be some component of some dementia or some kind Wernicke's encephalopathy without need to be further delineated an outpatient basis. 2. Acute kidney injury * resolved * Unclear the etiology but appears to be prerenal in etiology did respond to IV fluids * Hep-Lock IV and monitor 3. Lactic acidosis * as above, not due to alcoholic ketoacidosis * Polyp possibly related with dehydration and hypotension * No further workup at this time 4. Debility * Therapy recommending correction facility and patient is in agreement * Will await case management's input with insurance 5. History of alcohol abuse * No evidence of delirium tremens or any withdrawal symptoms * Continue with multivitamin 6. DVT prophylaxis with heparin Code Visit Inpatient E&M: 30981 Subs Hosp L2
[2018-03-14] MEDS: 0.9% NaCl Peripheral Flush Adult/Peds IV (18:56)
[2018-03-14] MEDS: Atorvastatin Calcium 80 MG Tablet PO (21:48)
[2018-03-15] VITALS (10 sets, daily range): BP systolic 115–134; BP diastolic 72–98; PULSE 79–89; RESP 14–18; TEMP 36.6–36.8; O2SAT 93–97; BMI 26.0
[2018-03-15] MEDS: Heparin Injection (Vial) 5,000 UNIT/ML VIAL 5000 UNIT SC ×3 (05:28→22:00)
[2018-03-15 06:49] LABS: ALB/GLOB Ratio 0.8 RATIO (0.9-2.4); AST(SGOT) 43 U/L (15-37); Alanine Aminotransfer ALT/SGPT 37 U/L (16-61); Albumin, Serum 2.8 g/dL (3.2-5.0); Alkaline Phosphatase 96 U/L (45-117); Anion Gap 9 (5-15); BUN 19 mg/dL (7-18); BUN/Creat Ratio 15.6 RATIO (10-20); Calcium,Total 8.7 mg/dL (8.5-10.1); Chloride 102 mmol/L (98-107); Creatinine, Serum 1.22 mg/dL (0.70-1.30); EST Glomerular Filtration Rate 62 mL/min (>60); Est Glom Filt Rate - Afr Amer 76 mL/min (>60); Estimated Creatinine Clearance 47.85 ml/min; Globulin 3.5 g/dL (2.2-4.2); Glucose 91 mg/dL (74-106); Potassium 3.7 mmol/L (3.5-5.1); Protein, Total 6.3 g/dL (6.4-8.2); Sodium Level 139 mmol/L (136-145)
[2018-03-15] MEDS: Aspirin 81 MG TAB.CHEW PO (09:17)
[2018-03-15] MEDS: Thiamine Hydrochloride 100 MG Tablet PO (09:17)
[2018-03-15] MEDS: Folic Acid 1 MG Tablet PO (09:17)
[2018-03-15] MEDS: Pantoprazole Sodium 20 MG Tablet PO ×2 (09:17→22:00)
[2018-03-15] MEDS: Multivitamins,Ther W-Minerals Tablet 1 TABLET PO (09:17)
--- NOTE | 2018-03-15 16:36 | CASEMGMT ---
Social Work: TC from Tamiko Kylie who states that physician is indicating that patient is ready for D/C. Patient has been living in he and his 's home in [place] and is still in [place]. Per patient is unsafe to return home alone due to decreased cognition. Tamiko states that she spoke with patient's and she is requesting [facility] as patient is unable to verbalize his preference at this time. TC to Jennifer at [facility]. Jennifer is requesting referral be faxed to review. Referral faxed. Will continue to follow to assist with D/C planning. PLAN: pending SNF acceptance. ANTONIA Clark
--- NOTE | 2018-03-15 16:38 | CASEMGMT ---
Pt agrees to SNF at this time but is unable to tell this RN CM where he would like to go. Call placed to , Yola,in [place] and she states that they are both in agreement with SNF and that they would like [facility] at this time. Referral to [facility] at this time, voices understanding. Aliyah RN CM
--- NOTE | 2018-03-15 17:25 | PCM.PN.HOSP ---
Patient Problems: Active and Suspected Problems Alcoholic ketoacidosis (Acute) Stroke (Acute) Hyponatremia (Acute) LEENA (acute kidney injury) (Acute) Subjective: no new complaints. Vitals/I&O's: Vital Signs Temp Pulse Resp BP Pulse Ox 36.7 C 84 18 115/98 H 93 03/15/18 15:14 03/15/18 16:04 03/15/18 15:14 03/15/18 15:14 03/15/18 15:14 Oxygen Delivery Method Room Air Weight: 68.8 kg Body Mass Index (BMI) 26.0 Intake and Output for Last 24 Hours 03/13/18 03/14/18 03/15/18 23:59 23:59 23:59 Intake Total 2290 / 2290 1225 / 1225 920 / 920 Output Total 500 / 500 0 / 0 Balance 1790 / 1790 1225 / 1225 920 / 920 General: Alert, No apparent distress HEENT: Atraumatic, Normocephalic Oral: Moist Mucosa, No Gingival or Mucosal Lesions/ Ulcerations Neck: No Nodes, Thyroid Normal Size and Texture Lungs: Clear to auscultation, Normal air movement, No rhonchi, No wheeze Cardiovascular: Regular rate, Regular Rhythm, Normal S1, Normal S2, No murmurs Abdomen: Bowel Sounds Present, Soft, Non Tender, Non-Distended, No Hepato-splenomegaly Extremities: No edema, No Calf Tenderness Skin: No rashes, No breakdown Psych/Mental Status: Normal Affect, Appropriate Microbiology Past 72 Hours 03/13/18 03:35 Urine, Clean Catch Urine Culture - Final Proteus sp. Laboratory Results 03/15/18 05:52: Sodium 139, Potassium 3.7, Chloride 102, Carbon Dioxide 28.0, Anion Gap 9, BUN 19 H, Creatinine 1.22, Estim Creat Clear Calc 47.85, Est GFR (MDRD) Af Amer 76, Est GFR (MDRD) Non-Af 62, BUN/Creatinine Ratio 15.6, Glucose 91, Calcium 8.7, Total Bilirubin 0.60, AST 43 H, ALT 37, Alkaline Phosphatase 96, Total Protein 6.3 L, Albumin 2.8 L, Globulin 3.5, Albumin/Globulin Ratio 0.8 L Current Medications Acetaminophen (Tylenol) 650 mg PO Q4H PRN PRN PRN Reason: Headache/Temp>99F Acetaminophen (Tylenol) 650 mg RECTAL Q4H PRN PRN PRN Reason: Headache/Temp>99F Acetaminophen (Tylenol Liquid) 650 mg NG Q4H PRN PRN PRN Reason: Headache/Temp>99F Al Hydroxide/Mg Hydroxide (Mylanta Ii) 30 ml PO Q6H PRN PRN PRN Reason: Gastric burning Aspirin (Aspirin, Baby) 81 mg PO DAILY@0800 [facility] Last Admin: 03/15/18 09:17 Dose: 81 mg Atorvastatin Calcium (Lipitor) 80 mg PO DAILY@2200 [facility] Last Admin: 03/14/18 21:48 Dose: 80 mg Dicyclomine HCl (Bentyl) 20 mg PO Q6H PRN PRN PRN Reason: abdominal discomfort Heparin Sodium (Porcine) (Heparin Na) 5,000 unit SC Q8 [facility] Last Admin: 03/15/18 15:21 Dose: 5,000 unit Labetalol HCl (Trandate) 10 mg IV Q4H PRN PRN PRN Reason: SBP > 160, hold for HR < 60 Magnesium Hydroxide (Milk Of Magnesia) 30 ml PO DAILY PRN PRN Reason: Constipation Multivitamins/Minerals (Multivitamin With Minerals) 1 tablet PO DAILYCM [facility] Last Admin: 03/15/18 09:17 Dose: 1 tablet Nutritional Formula (Lactose Free) (Ensure Enlive) 120 ml PO 4X/DAY [facility] Last Admin: 03/15/18 15:21 Dose: 120 ml Ondansetron HCl (Zofran) 4 mg IV Q8H PRN PRN PRN Reason: NAUSEA Pantoprazole Sodium (Protonix) 20 mg PO BID [facility] Last Admin: 03/15/18 09:17 Dose: 20 mg Promethazine HCl (Phenergan) 12.5 mg IV Q6H PRN PRN PRN Reason: NAUSEA/VOMITING Sodium Chloride () 5 - 30 ml IV UD PRN PRN Reason: SALINE FLUSH Last Admin: 03/14/18 18:56 Dose: 10 ml Medical Necessity - Tobacco Use Smoking Status: Former smoker Tobacco Use: Non-smoker Assessment/Plan All Active Problems Alcoholic ketoacidosis (Acute) Stroke (Acute) Hyponatremia (Acute) LEENA (acute kidney injury) (Acute) 1. Metabolic encephalopathy Appears to be resolved and suspect patient is at his baseline currently Patient adamantly denies any alcohol consumption recently though does state that he has had heavy use in the past Alcohol level was negative when he arrived so that essentially rules out alcoholic ketoacidosis feel probably component patient being dehydrated There may be some component of some dementia or some kind Wernicke's encephalopathy without need to be further delineated an outpatient basis. May be underlying dementia. Per , their [place] home is in [facility] (she lives in [place], [place]) Eval for underlying causes: check TSH, Folate and B12. 2. Acute kidney injury resolved Unclear the etiology but appears to be prerenal in etiology did respond to IV fluids Hep-Lock IV and monitor 3. Lactic acidosis as above, not due to alcoholic ketoacidosis Polyp possibly related with dehydration and hypotension No further workup at this time 4. Debility Therapy recommending prison facility and patient is in agreement Will await case management's input with insurance 5. History of alcohol abuse No evidence of delirium tremens or any withdrawal symptoms Continue with multivitamin 6. DVT prophylaxis with heparin Disposition: to SNF when able. Code Visit Inpatient E&M: 16058 Subs Hosp L2
[2018-03-15 18:55] LABS: Vitamin B12 415 pg/mL (211-911)
[2018-03-15] MEDS: Atorvastatin Calcium 80 MG Tablet PO (22:00)
[2018-03-16] VITALS (11 sets, daily range): BP systolic 125–132; BP diastolic 81–91; PULSE 80–104; RESP 14–18; TEMP 36.7–37.2; O2SAT 94–98; BMI 26.0
[2018-03-16] MEDS: Heparin Injection (Vial) 5,000 UNIT/ML VIAL 5000 UNIT SC ×3 (06:13→21:05)
[2018-03-16] MEDS: Aspirin 81 MG TAB.CHEW PO (08:11)
[2018-03-16] MEDS: Multivitamins,Ther W-Minerals Tablet 1 TABLET PO (08:11)
[2018-03-16] MEDS: Pantoprazole Sodium 20 MG Tablet PO ×2 (09:11→21:05)
--- NOTE | 2018-03-16 10:45 | CASEMGMT ---
JOHN spoke with Jennifer at [facility] and they will take patient. She said she will start the pre-cert once SW sends his PT/OT notes from today. JOHN faxed patient's PT/OT notes from today. Plan: [facility] pending insurance approval Lizz RICHARD
--- NOTE | 2018-03-16 16:16 | PN_ITS ---
Patient Problems: Active and Suspected Problems Alcoholic ketoacidosis (Acute) Stroke (Acute) Hyponatremia (Acute) LEENA (acute kidney injury) (Acute) Subjective: No new complaints. Vitals/I&O's: Vital Signs Temp Pulse Resp BP Pulse Ox 36.7 C 104 H 18 125/91 H 95 03/16/18 09:45 03/16/18 11:04 03/16/18 09:45 03/16/18 09:45 03/16/18 09:45 Oxygen Delivery Method Room Air Weight: 68.8 kg Body Mass Index (BMI) 26.0 Intake and Output for Last 24 Hours 03/14/18 03/15/18 03/16/18 23:59 23:59 23:59 Intake Total 1225 / 1225 1420 / 1420 240 / 240 Output Total 0 / 0 450 / 450 Balance 1225 / 1225 1420 / 1420 -210 / -210 General: Alert, Cooperative, No apparent distress HEENT: Atraumatic, Normocephalic Oral: Moist Mucosa, No Gingival or Mucosal Lesions/ Ulcerations Neck: No Nodes, Thyroid Normal Size and Texture Lungs: Clear to auscultation, Normal air movement, No rhonchi, No wheeze Cardiovascular: Regular rate, Regular Rhythm, Normal S1, Normal S2, No murmurs Abdomen: Bowel Sounds Present, Soft, Non Tender, Non-Distended, No Hepato- splenomegaly Extremities: No edema, No Calf Tenderness Skin: No rashes, No breakdown Microbiology Past 72 Hours 03/13/18 03:35 Urine, Clean Catch Urine Culture - Final Proteus sp. Laboratory Results 03/15/18 18:16: Vitamin B12 415 03/15/18 18:16: Folate 27.80 Current Medications Acetaminophen (Tylenol) 650 mg PO Q4H PRN PRN PRN Reason: Headache/Temp>99F Acetaminophen (Tylenol) 650 mg RECTAL Q4H PRN PRN PRN Reason: Headache/Temp>99F Acetaminophen (Tylenol Liquid) 650 mg NG Q4H PRN PRN PRN Reason: Headache/Temp>99F Al Hydroxide/Mg Hydroxide (Mylanta Ii) 30 ml PO Q6H PRN PRN PRN Reason: Gastric burning Aspirin (Aspirin, Baby) 81 mg PO DAILY@0800 [facility] Last Admin: 03/16/18 08:11 Dose: 81 mg Atorvastatin Calcium (Lipitor) 80 mg PO DAILY@2200 [facility] Last Admin: 03/15/18 22:00 Dose: 80 mg Dicyclomine HCl (Bentyl) 20 mg PO Q6H PRN PRN PRN Reason: abdominal discomfort Heparin Sodium (Porcine) (Heparin Na) 5,000 unit SC Q8 [facility] Last Admin: 03/16/18 13:38 Dose: 5,000 unit Labetalol HCl (Trandate) 10 mg IV Q4H PRN PRN PRN Reason: SBP > 160, hold for HR < 60 Magnesium Hydroxide (Milk Of Magnesia) 30 ml PO DAILY PRN PRN Reason: Constipation Multivitamins/Minerals (Multivitamin With Minerals) 1 tablet PO DAILYCM [facility] Last Admin: 03/16/18 08:11 Dose: 1 tablet Nutritional Formula (Lactose Free) (Ensure Enlive) 120 ml PO 4X/DAY [facility] Last Admin: 03/16/18 13:38 Dose: 120 ml Ondansetron HCl (Zofran) 4 mg IV Q8H PRN PRN PRN Reason: NAUSEA Pantoprazole Sodium (Protonix) 20 mg PO BID [facility] Last Admin: 03/16/18 09:11 Dose: 20 mg Promethazine HCl (Phenergan) 12.5 mg IV Q6H PRN PRN PRN Reason: NAUSEA/VOMITING Sodium Chloride () 5 - 30 ml IV UD PRN PRN Reason: SALINE FLUSH Last Admin: 03/14/18 18:56 Dose: 10 ml Medical Necessity - Tobacco Use Smoking Status: Former smoker Tobacco Use: Non-smoker Assessment/Plan All Active Problems Alcoholic ketoacidosis (Acute) Stroke (Acute) Hyponatremia (Acute) LEENA (acute kidney injury) (Acute) 1. Metabolic encephalopathy * Appears to be resolved and suspect patient is at his baseline currently * Patient adamantly denies any alcohol consumption recently though does state that he has had heavy use in the past * Alcohol level was negative when he arrived so that essentially rules out alcoholic ketoacidosis feel probably component patient being dehydrated * There may be some component of some dementia or some kind Wernicke's encephalopathy without need to be further delineated an outpatient basis. * May be underlying dementia. Per , their [place] home is in [facility] (she lives in [place], [place]) * B12, folate and TSH WNL. 2. Acute kidney injury * resolved * Unclear the etiology but appears to be prerenal in etiology did respond to IV fluids * Hep-Lock IV and monitor 3. Lactic acidosis * as above, not due to alcoholic ketoacidosis * Polyp possibly related with dehydration and hypotension * No further workup at this time 4. Debility * Therapy recommending nursing home facility and patient is in agreement * Will await case management's input with insurance 5. History of alcohol abuse * No evidence of delirium tremens or any withdrawal symptoms * Continue with multivitamin 6. DVT prophylaxis with heparin Disposition: to SNF pending precertification. Hopefully, 03/17. Code Visit Inpatient E&M: 33650 Subs Hosp L2
[2018-03-16] MEDS: Atorvastatin Calcium 80 MG Tablet PO (21:05)
[2018-03-17] VITALS (8 sets, daily range): BP systolic 116–124; BP diastolic 83–96; PULSE 87–103; RESP 18; TEMP 36.7–37.1; O2SAT 94–98
[2018-03-17] MEDS: Heparin Injection (Vial) 5,000 UNIT/ML VIAL 5000 UNIT SC ×3 (05:27→22:48)
[2018-03-17] MEDS: Multivitamins,Ther W-Minerals Tablet 1 TABLET PO (08:54)
[2018-03-17] MEDS: Aspirin 81 MG TAB.CHEW PO (08:54)
[2018-03-17] MEDS: Pantoprazole Sodium 20 MG Tablet PO ×2 (08:58→22:49)
--- NOTE | 2018-03-17 15:29 | PN_ITS ---
Patient Problems: Active and Suspected Problems Alcoholic ketoacidosis (Acute) Stroke (Acute) Hyponatremia (Acute) LEENA (acute kidney injury) (Acute) Subjective: Feels good. Vitals/I&O's: Vital Signs Temp Pulse Resp BP Pulse Ox 36.7 C 100 18 116/92 H 94 03/17/18 14:35 03/17/18 14:35 03/17/18 14:35 03/17/18 14:35 03/17/18 14:35 Oxygen Flow Rate (L/min) 1 Oxygen Delivery Method Room Air Weight: 68.8 kg Body Mass Index (BMI) 26.0 Intake and Output for Last 24 Hours 03/15/18 03/16/18 03/17/18 23:59 23:59 23:59 Intake Total 1420 / 1420 840 / 840 390 / 390 Output Total 850 / 850 Balance 1420 / 1420 -10 / -10 390 / 390 General: - - Jovial. Afebrile. HEENT: Atraumatic, Normocephalic Oral: Moist Mucosa, No Gingival or Mucosal Lesions/ Ulcerations Neck: No Nodes, Thyroid Normal Size and Texture Lungs: Clear to auscultation, Normal air movement, No rhonchi, No wheeze Cardiovascular: Regular rate, Regular Rhythm, Normal S1, Normal S2, No murmurs Abdomen: Bowel Sounds Present, Soft, Non Tender, Non-Distended, No Hepato- splenomegaly Microbiology Past 72 Hours 03/13/18 03:35 Urine, Clean Catch Urine Culture - Final Proteus sp. Current Medications Acetaminophen (Tylenol) 650 mg PO Q4H PRN PRN PRN Reason: Headache/Temp>99F Acetaminophen (Tylenol) 650 mg RECTAL Q4H PRN PRN PRN Reason: Headache/Temp>99F Acetaminophen (Tylenol Liquid) 650 mg NG Q4H PRN PRN PRN Reason: Headache/Temp>99F Al Hydroxide/Mg Hydroxide (Mylanta Ii) 30 ml PO Q6H PRN PRN PRN Reason: Gastric burning Aspirin (Aspirin, Baby) 81 mg PO DAILY@0800 [facility] Last Admin: 03/17/18 08:54 Dose: 81 mg Atorvastatin Calcium (Lipitor) 80 mg PO DAILY@2200 [facility] Last Admin: 03/16/18 21:05 Dose: 80 mg Dicyclomine HCl (Bentyl) 20 mg PO Q6H PRN PRN PRN Reason: abdominal discomfort Heparin Sodium (Porcine) (Heparin Na) 5,000 unit SC Q8 [facility] Last Admin: 03/17/18 14:35 Dose: 5,000 unit Labetalol HCl (Trandate) 10 mg IV Q4H PRN PRN PRN Reason: SBP > 160, hold for HR < 60 Magnesium Hydroxide (Milk Of Magnesia) 30 ml PO DAILY PRN PRN Reason: Constipation Multivitamins/Minerals (Multivitamin With Minerals) 1 tablet PO DAILYCM [facility] Last Admin: 03/17/18 08:54 Dose: 1 tablet Nutritional Formula (Lactose Free) (Ensure Enlive) 120 ml PO 4X/DAY [facility] Last Admin: 03/17/18 14:35 Dose: 120 ml Ondansetron HCl (Zofran) 4 mg IV Q8H PRN PRN PRN Reason: NAUSEA Pantoprazole Sodium (Protonix) 20 mg PO BID [facility] Last Admin: 03/17/18 08:58 Dose: 20 mg Promethazine HCl (Phenergan) 12.5 mg IV Q6H PRN PRN PRN Reason: NAUSEA/VOMITING Sodium Chloride () 5 - 30 ml IV UD PRN PRN Reason: SALINE FLUSH Last Admin: 03/14/18 18:56 Dose: 10 ml Medical Necessity - Tobacco Use Smoking Status: Former smoker Tobacco Use: Non-smoker Assessment/Plan All Active Problems Alcoholic ketoacidosis (Acute) Stroke (Acute) Hyponatremia (Acute) LEENA (acute kidney injury) (Acute) 1. Metabolic encephalopathy * Appears to be resolved and suspect patient is at his baseline currently * Patient adamantly denies any alcohol consumption recently though does state that he has had heavy use in the past * Alcohol level was negative when he arrived so that essentially rules out alcoholic ketoacidosis feel probably component patient being dehydrated * There may be some component of some dementia or some kind Wernicke's encephalopathy without need to be further delineated an outpatient basis. * May be underlying dementia. Per , their [place] home is in [facility] (she lives in [place], [place]) * B12, folate and TSH WNL. 2. Acute kidney injury * resolved * Unclear the etiology but appears to be prerenal in etiology did respond to IV fluids * Hep-Lock IV and monitor 3. Lactic acidosis * as above, not due to alcoholic ketoacidosis * Polyp possibly related with dehydration and hypotension * No further workup at this time 4. Debility * Therapy recommending group home facility and patient is in agreement * Will await case management's input with insurance 5. History of alcohol abuse * No evidence of delirium tremens or any withdrawal symptoms * Continue with multivitamin 6. DVT prophylaxis with heparin Disposition: to SNF pending precertification. Code Visit Inpatient E&M: 43814 Subs Hosp L2
[2018-03-17] MEDS: Atorvastatin Calcium 80 MG Tablet PO (22:49)
[2018-03-18 02:35] VITALS: BP 123/98; PULSE 94; RESP 18; TEMP 36.9; O2SAT 96
[2018-03-18] MEDS: 0.9% NaCl Peripheral Flush Adult/Peds IV (05:33)
[2018-03-18 06:39] LABS: Anion Gap 9 (5-15); BUN 21 mg/dL (7-18); BUN/Creat Ratio 15.8 RATIO (10-20); Calcium,Total 8.9 mg/dL (8.5-10.1); Chloride 101 mmol/L (98-107); Creatinine, Serum 1.33 mg/dL (0.70-1.30); EST Glomerular Filtration Rate 57 mL/min (>60); Est Glom Filt Rate - Afr Amer 68 mL/min (>60); Estimated Creatinine Clearance 43.89 ml/min; Glucose 103 mg/dL (74-106); Potassium 3.8 mmol/L (3.5-5.1); Sodium Level 136 mmol/L (136-145)
[2018-03-18 09:20] VITALS: BP 123/92; PULSE 97; RESP 18; TEMP 36.6; O2SAT 94
[2018-03-18] MEDS: Multivitamins,Ther W-Minerals Tablet 1 TABLET PO (09:27)
[2018-03-18] MEDS: Pantoprazole Sodium 20 MG Tablet PO (09:28)
[2018-03-18] MEDS: Aspirin 81 MG TAB.CHEW PO (09:28)
--- NOTE | 2018-03-18 10:49 | CASEMGMT ---
JOHN spoke with Jenny at [facility]. She said [employer] is saying Medicare is primary and Medicare is saying [employer] is primary. Medicare would be primary as patient just retired. However, they need patient or his to call Medicare and tell them they want Medicare as his primary. JOHN called patient's and told her this information. She said she will call them and hopefully they will talk with her. Patient's called JOHN back a short time later and said she left a message and Medicare is supposed to call her back in 55 min. Plan: [facility] pending the insurance issue getting resolved. Lizz SIM MSW
--- NOTE | 2018-03-18 12:03 | CASEMGMT ---
JOHN spoke with patient's and she was able to finally get through to Medicare. She said everything was switched to Medicare as primary. She said it takes 10 days to get everything finalized. JOHN told her patient will go today. JOHN spoke with Jenny at [facility] and let her know patient's spoke with Medicare and everything has been fixed. JOHN called [facility] and arranged for patient to get picked up at [facility]. JOHN will notify Jenny DAVIS, patient, and executive secretary. Lizz SIM MSW
--- NOTE | 2018-03-18 12:24 | TREXTCAR_ITS ---
- Diet 03/12/18 13:19 Diet: Cardiac/Low Cholesterol Food consistency:: Regular Liquid Consistency:: Regular/Thin - Routine Orders/Code Status Routine Lab Work: [facility] Code Status: Full Code - Therapies Weight Bearing: Full weight bearing Physical Therapy: Eval and Treat Occupational Therapy: Eval and Treat - Allergies/Procedures Done in Hospital Allergies/Adverse Reactions: Allergies No Known Allergies Allergy (Verified 03/12/18 11:36) Procedures: Blood transfusion - Type of Care/Length of Stay Estimated LOS: Convalescent Care Less Than 30 days Type of Care Needed: Skilled Rehab Potential: Good Prognosis: Good - Additional Orders/Day of Discharge Day of Discharge: 03/18/18 - Dietary and Speech Recommendations Dietitian Recommendations/Changes: Will order ONS medpass for increased nutrition if consumed - Follow Up Care Primary Care Physician: [facility] Doctor,Out of [NON-STAFF] - Within 2 Weeks
--- NOTE | 2018-03-18 12:25 | PCM.DC.SUM ---
Discharge Date and Diagnosis - Problem List Patient Problems: Active and Suspected Problems Alcoholic ketoacidosis (Acute) Stroke (Acute) Hyponatremia (Acute) LEENA (acute kidney injury) (Acute) Date of Admission: 03/12/18 Date of Discharge: 03/18/18 - Primary Discharge Diagnosis Active and Suspected Problems Alcoholic ketoacidosis (Acute) Stroke (Acute) Hyponatremia (Acute) LEENA (acute kidney injury) (Acute) - Secondary Discharge Diagnosis Chronic Problems Abnormal LFTs (Chronic) Alcohol abuse (Chronic) HTN (hypertension) (Chronic) HLD (hyperlipidemia) (Chronic) Gout (Chronic) Hospital Course and Treatment Imaging Results: Clinical Impression(s) from Imaging Studies Brain CT 03/12/18 11:36 IMPRESSION: No acute intracranial process. Electronically Signed: Duc Meade MD at 12:58 EDT Tel , Service support , Chest X-Ray 03/12/18 11:36 IMPRESSION: Degenerative changes, as described above. No demonstrated acute cardiopulmonary process. Electronically Signed: Fransico Royal DO at 12:28 EDT Tel , Service support , Brain MRI 03/13/18 14:38 IMPRESSION: 1. No MRI evidence of acute or subacute ischemic infarct. 2. Multiple chronic white matter ischemic changes in both cerebral hemispheres. Electronically Signed: Luis Manuel Ontiveros MD at 15:38 EDT , Service support , Head MRA 03/13/18 14:38 IMPRESSION: 1. Nonvisualization of the petrous segment of the left internal carotid artery and the intradural segments of both vertebral arteries. Artifacts from dental hardware versus true occlusion. 2. No other suspicious abnormalities of the anterior and posterior intracranial circulation. Recommendation: CTA of the head for more definite evaluation due to dental hardware artifacts. Electronically Signed: Luis Manuel Ontiveros MD at 15:44 EDT , Service support , Neck MRA 03/13/18 14:38 IMPRESSION: Central signal loss proximal bilateral ICAs probably due to flow void artifact but thrombus is disc difficult to exclude. CTA would be more sensitive if clinically warranted. Electronically Signed: Rome Galvan MD at 17:13 EDT , Service support , Chase Motta MD Operations: None Procedures: 2-D Echocardiogram Summary of Care Provided: The patient is a 67 year old M presents with confusion. [] 1. Metabolic encephalopathy Appears to be resolved and suspect patient is at his baseline currently Patient adamantly denies any alcohol consumption recently though does state that he has had heavy use in the past Alcohol level was negative when he arrived so that essentially rules out alcoholic ketoacidosis feel probably component patient being dehydrated There may be some component of some dementia or some kind Wernicke's encephalopathy without need to be further delineated an outpatient basis. May be underlying dementia. Per , their [place] home is in [facility] (she lives in [place], [place]) B12, folate and TSH WNL. Noted chronic white matter ischemic changes. 2. Acute kidney injury resolved Unclear the etiology but appears to be prerenal in etiology did respond to IV fluids Hep-Lock IV and monitor 3. Lactic acidosis as above, not due to alcoholic ketoacidosis possibly related with dehydration and hypotension No further workup at this time 4. Debility Therapy recommending nursing home facility and patient is in agreement To SNF today 5. History of alcohol abuse No evidence of delirium tremens or any withdrawal symptoms Continue with multivitamin 6. Chronic white matter ischemic changes. Noted on MRI ASA and High-intensity satin. Discharge Diet: Low fat/ Low Cholesterol Discharge Activity: Return to Normal Activity Home Medications: Medications to take at Discharge Acetaminophen [Tylenol Tablet] 650 mg PO Q4H PRN PRN tablet 03/18/18 Aspirin [Aspirin, Baby] 81 mg PO DAILY@0800 tab.chew 03/18/18 Atorvastatin Calcium [Lipitor] 40 mg PO DAILY@2200 tablet 03/18/18 Multivitamins,Ther W-Minerals [Multivitamin With Minerals] 1 tablet PO DAILYCM tablet 03/18/18 Primary Care Physician: [facility] Doctor,Out of [NON-STAFF] - Within 2 Weeks Disposition: [facility] facility Minutes spent on discharge:: 32 Patient Condition:: Good Medical Necessity - Tobacco Use Smoking Status: Former smoker Tobacco Use: Non-smoker Meaningful Use Info Meaningful Use Diagnoses (Choose all that apply): None applicable Code Visit Inpatient E&M: 13325 Disch Hosp
--- NOTE | 2018-03-18 12:28 | DS.PCM_ITS ---
Discharge Date and Diagnosis - Problem List Patient Problems: Active and Suspected Problems Alcoholic ketoacidosis (Acute) Stroke (Acute) Hyponatremia (Acute) LEENA (acute kidney injury) (Acute) Date of Admission: 03/12/18 Date of Discharge: 03/18/18 - Primary Discharge Diagnosis Active and Suspected Problems Alcoholic ketoacidosis (Acute) Stroke (Acute) Hyponatremia (Acute) LEENA (acute kidney injury) (Acute) - Secondary Discharge Diagnosis Chronic Problems Abnormal LFTs (Chronic) Alcohol abuse (Chronic) HTN (hypertension) (Chronic) HLD (hyperlipidemia) (Chronic) Gout (Chronic) Hospital Course and Treatment Imaging Results: Clinical Impression(s) from Imaging Studies Brain CT 03/12/18 11:36 IMPRESSION: No acute intracranial process. Electronically Signed: Duc Meade MD at 12:58 EDT Tel , Service support , Chest X-Ray 03/12/18 11:36 IMPRESSION: Degenerative changes, as described above. No demonstrated acute cardiopulmonary process. Electronically Signed: Fransico Royal DO at 12:28 EDT Tel , Service support , Brain MRI 03/13/18 14:38 IMPRESSION: 1. No MRI evidence of acute or subacute ischemic infarct. 2. Multiple chronic white matter ischemic changes in both cerebral hemispheres. Electronically Signed: Luis Manuel Ontiveros MD at 15:38 EDT , Service support , Head MRA 03/13/18 14:38 IMPRESSION: 1. Nonvisualization of the petrous segment of the left internal carotid artery and the intradural segments of both vertebral arteries. Artifacts from dental hardware versus true occlusion. 2. No other suspicious abnormalities of the anterior and posterior intracranial circulation. Recommendation: CTA of the head for more definite evaluation due to dental hardware artifacts. Electronically Signed: Luis Manuel Ontiveros MD at 15:44 EDT , Service support , Neck MRA 03/13/18 14:38 IMPRESSION: Central signal loss proximal bilateral ICAs probably due to flow void artifact but thrombus is disc difficult to exclude. CTA would be more sensitive if clinically warranted. Electronically Signed: Rome Galvan MD at 17:13 EDT , Service support , Chase Motta MD Operations: None Procedures: 2-D Echocardiogram Summary of Care Provided: The patient is a 67 year old M presents with confusion. [] 1. Metabolic encephalopathy * Appears to be resolved and suspect patient is at his baseline currently * Patient adamantly denies any alcohol consumption recently though does state that he has had heavy use in the past * Alcohol level was negative when he arrived so that essentially rules out alcoholic ketoacidosis feel probably component patient being dehydrated * There may be some component of some dementia or some kind Wernicke's encephalopathy without need to be further delineated an outpatient basis. * May be underlying dementia. Per , their [place] home is in [facility] (she lives in [place], [place]) * B12, folate and TSH WNL. * Noted chronic white matter ischemic changes. 2. Acute kidney injury * resolved * Unclear the etiology but appears to be prerenal in etiology did respond to IV fluids * Hep-Lock IV and monitor 3. Lactic acidosis * as above, not due to alcoholic ketoacidosis * possibly related with dehydration and hypotension * No further workup at this time 4. Debility * Therapy recommending senior living facility and patient is in agreement * To SNF today 5. History of alcohol abuse * No evidence of delirium tremens or any withdrawal symptoms * Continue with multivitamin 6. Chronic white matter ischemic changes. * Noted on MRI * ASA and High-intensity satin. Discharge Diet: Low fat/ Low Cholesterol Discharge Activity: Return to Normal Activity Home Medications: Medications to take at Discharge Acetaminophen [Tylenol Tablet] 650 mg PO Q4H PRN PRN tablet 03/18/18 Aspirin [Aspirin, Baby] 81 mg PO DAILY@0800 tab.chew 03/18/18 Atorvastatin Calcium [Lipitor] 40 mg PO DAILY@2200 tablet 03/18/18 Multivitamins,Ther W-Minerals [Multivitamin With Minerals] 1 tablet PO DAILYCM tablet 03/18/18 Primary Care Physician: [facility] Doctor,Out of [NON-STAFF] - Within 2 Weeks Disposition: Long-Term facility Minutes spent on discharge:: 32 Patient Condition:: Good Medical Necessity - Tobacco Use Smoking Status: Former smoker Tobacco Use: Non-smoker Meaningful Use Info Meaningful Use Diagnoses (Choose all that apply): None applicable Code Visit Inpatient E&M: 53504 Disch Hosp
--- NOTE | 2018-03-18 12:40 | CASEMGMT ---
Faxed orders to [facility]. Completed convalescent on HENS. Notified placement secretary, Jenny at [facility], RN who notified patient. All in agreement with d/c plan. Plan: d/c to [facility] under skilled level of care on a convalescent stay. [facility] transported him via van. Lizz SIM MSW
== END 2018-03-18 13:50 | disposition skilled nursing facility (03) | DRG 682 ==
LOC: ED 13:48 → PCU 13:58
PROVIDERS: Hospitalist; Admitting Provider Family Medicine; Emergency Provider Emergency Medicine
DX: N17.9 Acute kidney failure, unspecified (principal); G93.41 Metabolic encephalopathy; E87.1 Hypo-osmolality and hyponatremia; E87.2 Acidosis; E78.5 Hyperlipidemia, unspecified; M10.9 Gout, unspecified; I10 Essential (primary) hypertension; R94.5 Abnormal results of liver function studies; E86.0 Dehydration; R53.81 Other malaise; Z87.891 Personal history of nicotine dependence; F10.11 Alcohol abuse, in remission
CPT/HCPCS: 36415; 70450; 70544; 70547; 70551; 71045; 80048; 80053; 80061; 80076; 80307; 80320; 81001; 82009; 82570; 82607; 82746; 82962; 83735; 84100; 84300; 84443; 84484; 85025; 85610; 85730; 87086; 87088; 93005; 93306; 97116; 97162; 97166; 97530; 97535; 97802; 99285; J7030; J7040; Q9957; A4216; C8929; G0480; J3490

== ENCOUNTER 2019-09-01 15:19 | Emergency (ER) | payer MEDICARE, SELFPAY ==
[2019-09-01 15:20] VITALS: BP 141/69; PULSE 82; RESP 17; TEMP 38.3; O2SAT 93; BMI 29.7
--- NOTE | 2019-09-01 15:50 | RAD_ITS ---
STUDY: X-RAY CHEST REASON FOR EXAM: Male, 69 years old. SORE THROAT, ON AMOXCILLIN X3 DAYS NOT HELPING. HAS FALLEN 3 TIMES TODAY TECHNIQUE: Frontal and lateral views of the chest. COMPARISON: 03/12/2018. FINDINGS: There is hyperinflation of the lungs consistent with chronic obstructive lung disease (COPD). No infiltrates or effusions. There is no demonstrated pleural abnormality. Normal size heart. Normal mediastinum and puja. Normal visualized pulmonary arteries. There is atherosclerotic tortuosity of the aortic arch and descending thoracic aorta. There are diffuse degenerative changes of the visualized thoracic spine. Normal visualized ribs, clavicles, and shoulders. There is no demonstrated abnormality of the visualized soft tissue structures of the upper abdomen. RAD/Chest PA and Lateral IMPRESSION: There are findings consistent with COPD. There is no evidence of acute chest disease. Electronically Signed: Carlos Manuel Phillips MD at 16:45 EST , Service support ,
[2019-09-01 16:10] LABS: Absolute Lymphocyte Count 0.27 X10^3/uL (0.83-4.51); Basophil# 0.06 X10^3/uL; Basophil% 0.3 % (0-1); Eosinophil# 0.03 X10^3/uL; Eosinophils% 0.2 % (0-5); Hematocrit 45.9 % (40-54); Hemoglobin 15.7 g/dL (13.0-16.5); Lymphocyte # 0.27 X10^3/ul (4.0); Lymphocyte % 1.4 % (19-41); Mean Corp Hgb Conc 34.2 g/dL (32-36); Mean Corpuscular Hgb 31.3 pg (27.0-32.0); Mean Corpuscular Volume 91.4 fL (80-94); Mean Platelet Vol. 10.8 fl (6.2-12.0); Monocyte# 1.29 X10^3/uL; Monocyte% 6.9 % (0-10); NRBC Flagged by Analyzer 0 % (0-5); Neutrophil # 16.99 X10^3/uL (2.7-7.7); Neutrophil % 90.6 % (47-70); POSITIVE DIFFERENTIAL YES; Platelet Count 170 K/mm3 (150-450); RBC Distribution Width CV 12.9 % (11.6-14.6); RBC Distribution Width SD 43.2 fl (35.1-43.9); Red Blood Count 5.02 M/mm3 (4.6-6.2); White Blood Count 18.8 K/mm3 (4.4-11.0)
--- NOTE | 2019-09-01 16:11 | ED.VISSUMM ---
- ER Visit Summary Date of Service: 09/01/19 Chief Complaint: [Sore throat and falls] History of Present Illness: The patient is a 69 M [presents to the emergency department with complaint of a sore throat for the last 4 to 5 days. Patient also had a cough that started yesterday and was bringing up some yellow sputum. Patient was seen via teleconference yesterday by physician and prescribed amoxicillin. Patient today feels weak and has fallen x3 without any real injury. Patient presents via EMS for evaluation. Patient does have history of hypertension. Patient has prior history of TIAs. Patient has had prior [facility] beds at [facility] Physical Examination: [HEENT-PERRLA, EOMI. Cranial nerves II through XII grossly intact. TMs clear. Mucous membranes moist. No adenopathy. Patient does have some pharyngeal erythema however I do not appreciate any exudates. Uvula is in the midline. No trismus. Voice is normal and there is no hoarseness noted. Mild anterior and posterior cervical nodes noted. Cardiovascular-regular rate and rhythm without murmur or ectopy Lungs-clear to auscultation, chest wall stable without crepitus or subcu emphysema Abdomen-normoactive bowel sounds, soft, nontender, no rebound or rigidity, no peritoneal signs. Extremities-intact ?4, normal range of motion, normal pulses, atraumatic. No rashes] Test Results: [CBC with differential count of 18.8, hemoglobin 15.7, hematocrit 46, plates 170. Chemistries unremarkable. Influenza screen was negative. Strep screen was negative. Chest x-ray showed COPD otherwise nothing acute.] Emergency Department Course and Treatment: [He was given Toradol 15 mg IV as well as Decadron 10 mg IV.] Treatment Plan: I discussed with patient admission for his generalized weakness however he states that he is feeling much better currently and does not want to be admitted. I suspect patient likely has a viral etiology however until culture results from the strep screen return patient to continue with his antibiotic and finish out the amoxicillin. Patient was given referral to primary care physician locally for follow-up. Patient advised to return if difficulty swallowing on secretions or condition should worsen anyway. [] Disposition: Discharged home in stable condition [] Impression: [Pharyngitis Generalized weakness] This note was generated with [employer] software. It may contain incorrect words, spelling, and punctuation that were not noted in review of the chart prior to signing ED Disposition - Plan for ED Patient: Referrals: [facility],Out of [NON-STAFF] -
[2019-09-01] MEDS: dexAMETHasone 10 MG/ML Vial IV (16:17)
[2019-09-01] MEDS: Ketorolac 15 MG/ML Vial IV (16:17)
[2019-09-01] MEDS: 0.9% Normal Saline 1,000 ML 150 ML IV (16:17)
[2019-09-01 16:21] LABS: Anion Gap 6 (5-15); BUN 17 mg/dL (7-18); BUN/Creat Ratio 12.8 RATIO (10-20); Calcium,Total 8.9 mg/dL (8.5-10.1); Chloride 106 mmol/L (98-107); Creatinine, Serum 1.33 mg/dL (0.70-1.30); EST Glomerular Filtration Rate 56 mL/min (>60); Est Glom Filt Rate - Afr Amer 68 mL/min (>60); Glucose 151 mg/dL (74-106); Potassium 3.6 mmol/L (3.5-5.1); Sodium Level 139 mmol/L (136-145)
[2019-09-01 16:54] LABS: Differential Indicated SCAN CRITERIA MET
[2019-09-01 16:55] LABS: Anisocytosis RARE; Macrocytosis RARE; Platelet Estimate ADEQUATE (ADEQ); Red Cell Morphology N CHROM NORMAL (NORM C&C)
--- NOTE | 2019-09-01 17:02 | ED.DEP ---
ED Disposition - Plan for ED Patient: Instructions: PHARYNGITIS, Report Pending, WEAKNESS, Unk Cause Referrals: [facility] Doctor,Out of [NON-STAFF] - Maine Andre MD [STAFF PHYSICIAN] - 3-5 Days
[2019-09-01 17:42] VITALS: BP 108/74; PULSE 84; RESP 18; O2SAT 90
== END 2019-09-01 17:44 | disposition home or self-care (01) ==
PROVIDERS: Emergency Provider Emergency Medicine
DX: J02.9 Acute pharyngitis, unspecified (principal); R53.1 Weakness; I10 Essential (primary) hypertension; R29.6 Repeated falls; Z79.82 Long term (current) use of aspirin; Z86.73 Personal history of transient ischemic attack (TIA), and cerebral infarction without residual deficits
CPT/HCPCS: 71046; 80048; 85025; 87804; 87880; 96361; 96374; 96375; 99285; J7030; A4216

== ENCOUNTER → 2019-12-04 13:47 | Outpatient (CLI) | payer MEDICARE, SELFPAY ==
[2019-12-04 15:12] LABS: Absolute Lymphocyte Count 1.19 X10^3/uL (0.83-4.51); Absolute Neutrophil Count 5.4 X10^3/uL (2.0-7.7); Basophil# 0.08 X10^3/uL; Basophil% 0.9 % (0-1); Eosinophil# 1.42 X10^3/uL; Eosinophils% 16.2 % (0-5); Hematocrit 44.2 % (40-54); Hemoglobin 15.2 g/dL (13.0-16.5); Lymphocyte # 1.19 X10^3/ul (4.0); Lymphocyte % 13.6 % (19-41); Mean Corp Hgb Conc 34.4 g/dL (32-36); Mean Corpuscular Hgb 32.1 pg (27.0-32.0); Mean Corpuscular Volume 93.2 fL (80-94); Mean Platelet Vol. 11.3 fl (6.2-12.0); Monocyte# 0.59 X10^3/uL; Monocyte% 6.7 % (0-10); NRBC Flagged by Analyzer 0 % (0-5); Neutrophil # 5.44 X10^3/uL (2.7-7.7); Neutrophil % 62.1 % (47-70); Platelet Count 189 K/mm3 (150-450); RBC Distribution Width CV 13.2 % (11.6-14.6); RBC Distribution Width SD 45.1 fl (35.1-43.9); Red Blood Count 4.74 M/mm3 (4.6-6.2); White Blood Count 8.8 K/mm3 (4.4-11.0)
[2019-12-04 15:22] LABS: Color, Urine Yellow (Yellow); Glucose, Dipstick Normal (Normal); Ketone-Dipstick Negative (Negative); Leukocyte Esterase-Dipstick Negative /ul (Negative); Nitrite-Dipstick Negative (Negative); Occult Blood-Urine Negative /ul (Negative); Protein-Dipstick Negative (Negative); Urine Bilirubin Dipstick Negative (Negative); Urine Clarity Sl. Cloudy (Clear); Urine Urobilinogen Normal (Normal)
[2019-12-04 15:42] LABS: Hemoglobin A1c 5.3 % (3.8-5.6)
[2019-12-04 15:46] LABS: AST(SGOT) 26 U/L (15-37); Alanine Aminotransfer ALT/SGPT 32 U/L (16-61); Albumin, Serum 3.9 g/dL (3.2-5.0); Alkaline Phosphatase 104 U/L (45-117); Anion Gap 7 (5-15); BUN 23 mg/dL (7-18); BUN/Creat Ratio 15.8 RATIO (10-20); Calcium,Total 8.9 mg/dL (8.5-10.1); Chloride 105 mmol/L (98-107); Cholesterol 126 mg/dL (200); Creatinine, Serum 1.46 mg/dL (0.70-1.30); EST Glomerular Filtration Rate 51 mL/min (>60); Est Glom Filt Rate - Afr Amer 61 mL/min (>60); Glucose 100 mg/dL (74-106); High Density Lipoprotein 40 mg/dL; Potassium 3.7 mmol/L (3.5-5.1); Protein, Total 7.9 g/dL (6.4-8.2); Sodium Level 138 mmol/L (136-145); Thyroid Stim Hormone (TSH) 2.22 uIU/mL (0.358-3.74); Triglycerides 104 mg/dL; Very Low Density Lipoprotein 21 mg/dL (5-40)
== END ==
DX: E03.9 Hypothyroidism, unspecified (principal); Z12.5 Encounter for screening for malignant neoplasm of prostate
CPT/HCPCS: 36415; 80053; 80061; 81002; 83036; 84153; 84443; 85025; G0103

== ENCOUNTER → 2020-05-14 16:32 | Outpatient (CLI) | payer MEDICARE, SELFPAY ==
[2020-05-14 17:54] LABS: Color, Urine Yellow (Yellow); Glucose, Dipstick Normal (Normal); Ketone-Dipstick Negative (Negative); Leukocyte Esterase-Dipstick 25 /ul (Negative); Nitrite-Dipstick Negative (Negative); Occult Blood-Urine Negative /ul (Negative); Protein-Dipstick 15 mg/dl (Negative); Specific Gravity, Urine 1.015 (1.002-1.030); Urine Bilirubin Dipstick Negative (Negative); Urine Clarity Sl. Cloudy (Clear); Urine Urobilinogen Normal (Normal)
[2020-05-14 17:55] LABS: Absolute Lymphocyte Count 1.37 X10^3/uL (0.83-4.51); Absolute Neutrophil Count 4.6 X10^3/uL (2.0-7.7); Basophil# 0.09 X10^3/uL; Basophil% 1.1 % (0-1); Eosinophils% 16.2 % (0-5); Hematocrit 46.2 % (40-54); Lymphocyte # 1.37 X10^3/ul (4.0); Lymphocyte % 17.1 % (19-41); Mean Corp Hgb Conc 32.5 g/dL (32-36); Mean Corpuscular Hgb 30.7 pg (27.0-32.0); Mean Corpuscular Volume 94.7 fL (80-94); Mean Platelet Vol. 10.8 fl (6.2-12.0); Monocyte# 0.63 X10^3/uL; Monocyte% 7.9 % (0-10); NRBC Flagged by Analyzer 0 % (0-5); Neutrophil % 57.5 % (47-70); Platelet Count 246 K/mm3 (150-450); RBC Distribution Width CV 13.2 % (11.6-14.6); Red Blood Count 4.88 M/mm3 (4.6-6.2)
[2020-05-14 18:41] LABS: Hemoglobin A1c 5.5 % (3.8-5.6)
[2020-05-14 18:50] LABS: Microalbumin,Random Urine 15.9 mg/L (NO RANGE EST.); Microalbumin:Creatinine Ratio 11.1 mg/g CRE (<30 mg/g CRE)
[2020-05-14 20:41] LABS: ALB/GLOB Ratio 1.2 RATIO (0.9-2.4); AST(SGOT) 26 U/L (15-37); Alanine Aminotransfer ALT/SGPT 27 U/L (16-61); Albumin, Serum 4.1 g/dL (3.2-5.0); Alkaline Phosphatase 102 U/L (45-117); Anion Gap 7 (5-15); BUN 18 mg/dL (7-18); BUN/Creat Ratio 12.2 RATIO (10-20); Chloride 104 mmol/L (98-107); Cholesterol 126 mg/dL (200); Creatinine, Serum 1.48 mg/dL (0.70-1.30); EST Glomerular Filtration Rate 50 mL/min (>60); Est Glom Filt Rate - Afr Amer 60 mL/min (>60); Ferritin 73 ng/mL (26-388); Globulin 3.4 g/dL (2.2-4.2); Glucose 92 mg/dL (74-106); High Density Lipoprotein 48 mg/dL; Iron 92 ug/dL (65-175); Iron Binding Capacity,Total 361 ug/dL (250-450); PERCENT IRON SATURATION 25.5 % (15.0-55.0); PSA,Total - Annual Screen 5.35 ng/mL (0.00-4.00); Potassium 3.7 mmol/L (3.5-5.1); Protein, Total 7.5 g/dL (6.4-8.2); Sodium Level 140 mmol/L (136-145); T4 Free Direct 0.83 ng/dL (0.76-1.46); Thyroid Stim Hormone (TSH) 2.63 uIU/mL (0.358-3.74); Triglycerides 99 mg/dL; Very Low Density Lipoprotein 20 mg/dL (5-40)
[2020-05-15 07:29] LABS: SARS-COV-2 TOTAL ABS Nonreactive (Nonreactive)
[2020-05-15 09:26] LABS: Vitamin B12 845 pg/mL (211-911)
== END ==
DX: E78.5 Hyperlipidemia, unspecified (principal)
CPT/HCPCS: 36415; 80053; 80061; 81002; 82043; 82570; 82607; 82728; 82746; 83036; 83540; 83550; 84153; 84439; 84443; 85025; 86769; 87086; 87088; G0103

== ENCOUNTER → 2020-08-27 16:21 | Outpatient (CLI) | payer MEDICARE, SELFPAY ==
[2020-08-27 17:50] LABS: Absolute Lymphocyte Count 1.07 X10^3/uL (0.83-4.51); Basophil# 0.07 X10^3/uL; Basophil% 0.9 % (0-1); Hematocrit 45.5 % (40-54); Hemoglobin 15.3 g/dL (13.0-16.5); Lymphocyte # 1.07 X10^3/ul (4.0); Lymphocyte % 13.6 % (19-41); Mean Corp Hgb Conc 33.6 g/dL (32-36); Mean Corpuscular Hgb 31.3 pg (27.0-32.0); Mean Platelet Vol. 11.3 fl (6.2-12.0); Monocyte# 0.56 X10^3/uL; Monocyte% 7.1 % (0-10); NRBC Flagged by Analyzer 0 % (0-5); Neutrophil # 5.04 X10^3/uL (2.7-7.7); Neutrophil % 64.1 % (47-70); Platelet Count 233 K/mm3 (150-450); RBC Distribution Width CV 12.3 % (11.6-14.6); RBC Distribution Width SD 42.4 fl (35.1-43.9); Red Blood Count 4.89 M/mm3 (4.6-6.2); White Blood Count 7.9 K/mm3 (4.4-11.0)
[2020-08-27 17:52] LABS: Color, Urine Yellow (Yellow); Glucose, Dipstick Normal (Normal); Ketone-Dipstick Negative (Negative); Leukocyte Esterase-Dipstick 25 /ul (Negative); Nitrite-Dipstick Negative (Negative); Occult Blood-Urine Negative /ul (Negative); Protein-Dipstick 15 mg/dl (Negative); Urine Bilirubin Dipstick Negative (Negative); Urine Clarity Sl. Cloudy (Clear); Urine Urobilinogen Normal (Normal)
[2020-08-27 18:08] LABS: Hemoglobin A1c 5.2 % (3.8-5.6)
[2020-08-27 18:35] LABS: Vitamin B12 948 pg/mL (211-911); Vitamin D,25 Hydroxy 32.6 ng/mL
[2020-08-27 18:51] LABS: ALB/GLOB Ratio 0.9 RATIO (0.9-2.4); AST(SGOT) 35 U/L (15-37); Alanine Aminotransfer ALT/SGPT 35 U/L (16-61); Albumin, Serum 3.7 g/dL (3.2-5.0); Alkaline Phosphatase 111 U/L (45-117); Anion Gap 6 (5-15); BUN 25 mg/dL (7-18); BUN/Creat Ratio 15.5 RATIO (10-20); Calcium,Total 8.8 mg/dL (8.5-10.1); Chloride 107 mmol/L (98-107); Creatinine, Serum 1.61 mg/dL (0.70-1.30); EST Glomerular Filtration Rate 45 mL/min (>60); Est Glom Filt Rate - Afr Amer 55 mL/min (>60); Globulin 3.9 g/dL (2.2-4.2); Glucose 116 mg/dL (74-106); PSA,Total - Annual Screen 4.13 ng/mL (0.00-4.00); Potassium 3.6 mmol/L (3.5-5.1); Protein, Total 7.6 g/dL (6.4-8.2); Sodium Level 139 mmol/L (136-145); T4 Free Direct 0.86 ng/dL (0.76-1.46); Thyroid Stim Hormone (TSH) 1.48 uIU/mL (0.358-3.74)
== END ==
DX: E03.9 Hypothyroidism, unspecified (principal); E55.9 Vitamin D deficiency, unspecified; M48.061 Spinal stenosis, lumbar region without neurogenic claudication; Z12.5 Encounter for screening for malignant neoplasm of prostate
CPT/HCPCS: 36415; 80053; 81002; 82306; 82607; 82746; 83036; 84153; 84439; 84443; 85025; 87086; 87088; G0103

== ENCOUNTER 2020-12-07 18:19 | Emergency (ER) | payer MEDICARE, SELFPAY ==
[2020-12-07 18:20] VITALS: BP 114/80; PULSE 96; RESP 16; TEMP 36.7; O2SAT 95; BMI 29.2
--- NOTE | 2020-12-07 18:49 | EDS_ITS ---
HPI History of Present Illness Chief Complaint: Bite Informant: patient Onset/Context/Timing Onset: Yesterday Narrative Narrative: Presents for evaluation dog bite right lower extremity occurring yesterday. Neighborhood dog. Patient tetanus unknown. No allergies. Denies being on any anticoagulation medications. States fell the ground got bit on the scalp also. No fevers. Tetanus Immunization: Unknown [facility] Medical History Alcohol abuse Cirrhosis Gout Hayfever Heart murmur Hypertension Neuropathy Non-smoker TIA (transient ischemic attack) Home Medications Therems-M 1 tab PO DAILYCM tablet 03/18/18 [Rx Last Taken Unknown] aspirin 81 mg PO DAILY@0800 tab.chew 03/18/18 [Rx Last Taken Unknown] atorvastatin 40 mg PO DAILY@2200 tablet 03/18/18 [Rx Last Taken Unknown] Gabapentin 600 mg PO BID 09/01/19 [History Last Taken Unknown] amlodipine 10 mg PO DAILY 09/01/19 [History Last Taken Unknown] diazepam 5 mg PO PRN PRN 09/01/19 [History Last Taken Unknown] sertraline 100 mg PO DAILY 09/01/19 [History Last Taken Unknown] Benadryl 50 mg 12/07/20 [History Last Taken Unknown] amoxicillin-pot clavulanate [Augmentin] 1 tab PO Q12H #20 tab 12/07/20 [Rx Last Taken Unknown] Allergy/AdvReac Type Severity Reaction Status Date / Time No Known Allergies Allergy Verified 12/07/20 18:19 Surgical History History of right hip replacement Social History Smoking Status: Never smoker ROS ROS ED Constitutional Constitutional ED: Denies chills, fever(s) or sweats Eyes Eyes: Denies change in vision ENT ENT ED: Denies dysphagia or sore throat Cardiovascular Cardiovascular: Denies chest pain, leg edema, palpitations or racing heartbeat Respiratory/Chest Respiratory/Chest: Denies cough, dyspnea or dyspnea on exertion Gastrointestinal Gastrointestinal: Denies abdominal pain, diarrhea, nausea or vomiting Genitourinary Genitourinary ED: Denies dysuria, hematuria or urinary frequency Musculoskeletal Musculoskeletal: Denies back pain, extremity pain or neck pain Integumentary Reports other Details: Scalp wound, right lower extremity laceration ; Denies rash or wounds Neurologic Neurologic: Denies headache(s), paresthesias or weakness EXAM Physical Exam Const Vital Signs: 12/07/20 18:20 Temperature 98.1 F Temperature Source Temporal Pulse Rate 96 Respiratory Rate 16 Blood Pressure 114/80 Blood Pressure Mean 91 Pulse Ox 95 Oxygen Delivery Method Room Air Positive well nourished and well developed General Appearance ED: well developed and NAD HEENT Reports moist mucous membranes HEENT Narrative: 2 puncture right crown with scabbing, no active drainage. Nontender to palpation. normocephalic Eyes PERRL, EOMs intact bilaterally and conjunctivae normal General Eye ED: Yes normal appearance of both eyes Neck no lymphadenopathy and supple General: Negative for tenderness Chest Wall Chest: Negative for tenderness Resp normal respiratory effort and normal air movement Effort and Inspection: symmetric chest movement; Negative for respiratory distr ess Cardio regular rate, regular rhythm and no murmurs Peripheral Pulses: pulses 2+ throughout GI normal to inspection, nondistended, normoactive bowel sounds and non-tender Palpation: Negative for guarding or rebound tenderness present Back/Spine no CVA tenderness and no thoracic nor lumbar tenderness Extremity Extremity Narrative: Right lower extremity: Posterior distal leg distal one th ird of the 4 cm total flap laceration extending subcutaneously. There is no active drainage or bleeding. No surrounding erythema. Neuro oriented x3 and no sensory deficits noted Sensorium / Orientation: awake and alert Skin Skin Narrative: See above for lower extremity injury. MDM MDM MDM Narrative Medical decision making narrative: Patient's tetanus updated. Augmentin started due to dog bite. Scalp lesions minimal in size, will allow to heal by secondary intention. Patient is right lower extremity noted flap laceration that is gaping. There is no active bleeding. Due to size discussed loose closure with antibiotics and close monitoring. Wound was copiously flushed with saline during closure. Prescription for Augmentin. Follow-up with PCP with return precautions. Procedure note: Laceration repair. Verbal consent. 5 cc lidocaine 1% with local analgesia, wound with copious flushed with 1 L of normal saline. Syringe was used for flushing. Total of 2, 3-0 nylon simple interrupted suture was used for approximation and 2 spots, dressing per nursing. Patient tolerated procedure well. Discharge Plan Triage Chief Complaint: Bite ED Provider: Victor Hugo Real Dx/Rx/DC Orders Clinical Impression: Dog bite of extremity, Dog bite of scalp, Laceration of leg, right Instructions: ED Dog Bite, ED Laceration: All Closures Prescriptions: New amoxicillin-pot clavulanate [Augmentin] 875-125 mg tablet 1 tab PO Q12H Qty: 20 RF: 0 No Action atorvastatin 80 MG tablet 40 mg PO DAILY@2200 RF: 0 aspirin 81 MG tablet,chewable 81 mg PO DAILY@0800 RF: 0 Therems-M 1 TABLET tablet 1 tab PO DAILYCM RF: 0 amlodipine 10 MG tablet 10 mg PO DAILY RF: 0 sertraline 100 MG tablet 100 mg PO DAILY RF: 0 diazepam 5 MG tablet 5 mg PO PRN PRN (Reason: Anxiety) RF: 0 Gabapentin 600 MG tablet 600 mg PO BID RF: 0 Benadryl capsule 50 mg RF: 0 Primary Care Provider: Care Physician,No Primary Referrals: Arline Brewer [NON-STAFF] - 5-7 Days Care Physician,No Primary [Primary Care Provider] - Disposition Disposition: Home, self care
[2020-12-07] MEDS: Amox/Clavulanate 875 MG Tablet PO (19:11)
[2020-12-07] MEDS: Lidocaine 1% (20 ml mdv) 20 ML Vial INFILT (19:12)
[2020-12-07] MEDS: Diphth,Pertuss(Acell),Tet Vac 0.5 ML Vial IM (19:12)
[2020-12-07] MEDS: BACITRACIN 15 GM Tube 1 APPLIC TOPICAL (19:13)
[2020-12-07 21:14] VITALS: BP 116/80; PULSE 79; RESP 18; O2SAT 96
== END 2020-12-07 21:15 | disposition home or self-care (01) ==
PROVIDERS: Emergency Provider Emergency Medicine
DX: S81.811A Laceration without foreign body, right lower leg, initial encounter (principal); S01.05XA Open bite of scalp, initial encounter; W54.0XXA Bitten by dog, initial encounter; Z79.82 Long term (current) use of aspirin; Z79.899 Other long term (current) drug therapy
CPT/HCPCS: 12002; 90471; 90715; 99285

== ENCOUNTER → 2022-05-25 | Outpatient (CLI) | payer MEDICARE, SELFPAY ==
[2022-05-25 17:47] LABS: Color, Urine Yellow (Yellow); Glucose, Dipstick Normal (Normal); Ketone-Dipstick Negative (Negative); Leukocyte Esterase-Dipstick 100 /ul (Negative); Nitrite-Dipstick Positive (Negative); Occult Blood-Urine 25 /ul (Negative); Protein-Dipstick 30 mg/dl (Negative); Urine Bilirubin Dipstick Negative (Negative); Urine Clarity Sl. Cloudy (Clear); Urine Urobilinogen Normal (Normal)
[2022-05-25 17:50] LABS: Absolute Lymphocyte Count 0.89 X10^3/uL (0.83-4.51); Absolute Neutrophil Count 5.6 X10^3/uL (2.0-7.7); Basophil# 0.06 X10^3/uL; Basophil% 0.8 % (0-1); Eosinophil# 0.81 X10^3/uL; Eosinophils% 10.2 % (0-5); Hematocrit 44.9 % (40-54); Hemoglobin 14.7 g/dL (13.0-16.5); Lymphocyte # 0.89 X10^3/ul (0.83-4.51); Lymphocyte % 11.3 % (19-41); Mean Corp Hgb Conc 32.7 g/dL (32-36); Mean Corpuscular Volume 97.6 fL (80-94); Mean Platelet Vol. 11.1 fl (6.2-12.0); Monocyte# 0.53 X10^3/uL; Monocyte% 6.7 % (0-10); NRBC Flagged by Analyzer 0 % (0-5); Neutrophil # 5.58 X10^3/uL (2.7-7.7); Neutrophil % 70.5 % (47-70); Platelet Count 238 K/mm3 (150-450); RBC Distribution Width CV 12.8 % (11.6-14.6); RBC Distribution Width SD 45.3 fl (35.1-43.9); White Blood Count 7.9 K/mm3 (4.4-11.0)
[2022-05-25 17:56] LABS: Vitamin D,25 Hydroxy 43.6 ng/mL
[2022-05-25 18:02] LABS: Hemoglobin A1c 5.4 % (3.8-5.6)
[2022-05-25 18:19] LABS: ALB/GLOB Ratio 1.1 RATIO (0.9-2.4); AST(SGOT) 23 U/L (15-37); Alanine Aminotransfer ALT/SGPT 30 U/L (16-61); Albumin, Serum 3.9 g/dL (3.2-5.0); Alkaline Phosphatase 99 U/L (45-117); Anion Gap 8 (5-15); BUN 18 mg/dL (7-18); BUN/Creat Ratio 13.2 RATIO (10-20); Calcium,Total 9.1 mg/dL (8.5-10.1); Chloride 105 mmol/L (98-107); Cholesterol 122 mg/dL (200); Creatinine, Serum 1.36 mg/dL (0.70-1.30); EST Glomerular Filtration Rate 54 mL/min (>60); Est Glom Filt Rate - Afr Amer 66 mL/min (>60); Globulin 3.5 g/dL (2.2-4.2); Glucose 98 mg/dL (74-106); High Density Lipoprotein 41 mg/dL; Potassium 3.6 mmol/L (3.5-5.1); Protein, Total 7.4 g/dL (6.4-8.2); Sodium Level 140 mmol/L (136-145); T4 Free Direct 0.95 ng/dL (0.76-1.46); Thyroid Stim Hormone (TSH) 2.67 uIU/mL (0.358-3.74); Triglycerides 160 mg/dL; Uric Acid 6.4 mg/dL (3.5-7.2); Very Low Density Lipoprotein 32 mg/dL (5-40)
== END | disposition home or self-care (01) ==
DX: E55.9 Vitamin D deficiency, unspecified (principal); R97.20 Elevated prostate specific antigen [PSA]
CPT/HCPCS: 36415; 80053; 80061; 81002; 82306; 83036; 84153; 84439; 84443; 84550; 85025; 87086

== ENCOUNTER 2022-08-17 16:52 | Emergency (ER) | payer MEDICARE, SELFPAY ==
[2022-08-17 16:53] VITALS: BP 141/85; PULSE 85; RESP 14; TEMP 36.1; O2SAT 92
--- NOTE | 2022-08-17 18:02 | EX.ED.GUMALE ---
HPI History of Present Illness Chief Complaint: Brambila C/O Detail of Chief Complaint: Urinary retention with overflow incontinence. Informant: patient Pain Onset: Today Timing: Continuous Current Severity: Mild Maximum Severity: Mild Narrative Narrative: 72-year-old male history of bladder cancer. Had a procedure done with a recent cystoscopy done by Dr. Miguel Beltran of urology. Patient had a Brambila catheter in. He did not think it was working well and it was painful so he kept the catheter and it fell out. He denies any gross hematuria. He is unable to urinate and at times he has overflow incontinence. He denies any gross blood. No fever. No pain. He was sent in by his urologist to have a new Brambila catheter placed. Prior similar symptoms: No Recent Illness/Hospitalization: No PFSH PFS Medical History Alcohol abuse Cirrhosis Gout Hayfever Heart murmur Hypertension Neuropathy Non-smoker TIA (transient ischemic attack) Home Medications aspirin 81 mg chewable tablet 81 mg PO DAILY@0800 03/18/18 [Rx Last Taken Unknown] atorvastatin 80 mg tablet 40 mg PO DAILY@2200 03/18/18 [Rx Last Taken Unknown] multivitamin,hm-ikql-gqattsaw 27 mg-0.4 mg tablet (Therems-M) 1 tab PO DAILYCM 03/18/18 [Rx Last Taken Unknown] Gabapentin 600 mg PO BID 09/01/19 [History Last Taken Unknown] amlodipine 10 mg tablet 10 mg PO DAILY 09/01/19 [History Last Taken Unknown] diazepam 5 mg tablet 5 mg PO PRN PRN Anxiety 09/01/19 [History Last Taken Unknown] sertraline 100 mg tablet 100 mg PO DAILY 09/01/19 [History Last Taken Unknown] Benadryl 50 mg 12/07/20 [History Last Taken Unknown] amoxicillin 875 mg-potassium clavulanate 125 mg tablet (Augmentin) 1 tab PO Q12H #20 tabs 12/07/20 [Rx Last Taken Unknown] Allergy/AdvReac Type Severity Reaction Status Date / Time No Known Allergies Allergy Verified 08/17/22 16:53 Surgical History History of right hip replacement Social History Smoking Status: Never smoker ROS ROS ED ROS Narrative Denies recent illness. Urinary retention. Review of Systems ROS Unobtainable: Denies due to encephalopathy Constitutional Constitutional ED: Denies chills or fever(s) Eyes Eyes: Denies blurry vision ENT ENT ED: Denies ear pain Respiratory/Chest Respiratory/Chest: Denies cough Gastrointestinal Gastrointestinal: Denies abdominal pain Genitourinary Genitourinary ED: Denies dysuria, hematuria or urinary frequency Musculoskeletal Musculoskeletal: Denies arthralgias Integumentary Denies abscess Neurologic Neurologic: Denies headache(s) Psychiatric Psychiatric: Denies anxiety Endocrine Endocrinology: Denies polydipsia Hematologic/Lymphatic Hematologic/Lymphatic: Denies easy bleeding Allergic/Immunologic Allergic/Immunologic ED: Denies mouth swelling or tongue swelling EXAM Physical Exam Narrative Exam Narrative: 72-year-old male no acute distress vital signs stable afebrile. H EENT exam unremarkable. Neck nontender. Lungs clear to auscultation. Heart regular rhythm no murmur. Abdomen is soft and nontender. Normal bowel sounds no peritoneal signs. I do not feel a significantly distended bladder. Suprapubic he has no reproducible tenderness. External exam unremarkable. Moving all 4 extremities. Nontender no edema. Neurologically is awake and alert. Const Vital Signs: 08/17/22 16:53 Temperature 97 F L Temperature Source Temporal Pulse Rate 85 Respiratory Rate 14 Blood Pressure 141/85 H Blood Pressure Mean 103 Pulse Ox 92 Oxygen Delivery Method Room Air Positive well nourished and well developed; Negative for cachectic, contractures or unkempt General Appearance ED: well developed and NAD; Negative for unkempt, cachectic, contractures or pallor Nutritional Appearance: Negative for cachectic HEENT Reports moist mucous membranes; Denies dry mucous membranes normocephalic and atraumatic; Negative for trauma or tenderness Mouth ED: No dry mucous membranes Mouth: No dry mucous membranes Eyes PERRL and EOMs intact bilaterally General Eye ED: Negative for pale conjunctiva or scleral icterus Neck no lymphadenopathy, supple and no JVD General: Negative for tenderness Resp normal respiratory effort and clear to auscultation bilaterally Effort and Inspection: Negative for retractions Auscultation: Negative for rales, rhonchi or wheezes Cardio regular rate, regular rhythm, S1 normal heart sound, S2 normal heart sound and no murmurs Rate: Negative for bradycardia Rhythm: Negative for abnormal rhythm Heart Sounds: Negative for other GI non-tender, non-distended and no masses Inspection: Negative for abdominal distention Auscultation: normoactive bowel sounds Palpation: soft; Negative for tender or guarding no CVA tenderness Bladder / Kidney Exam: No CVA tenderness Groin / Perineum Exam: Negative for edema Back/Spine no CVA tenderness General Back: Negative for CVA tenderness Cervical Spine: Negative for cervical spine tenderness Thoracic Spine / Upper Back: Negative for thoracic spinal tenderness Lumbar Spine / Lower Back: Negative for lumbar spinal tenderness Neuro oriented x3, CN's II-XII intact bilaterally, moves all extremities and no focal motor deficits Sensorium / Orientation: alert, oriented to person, oriented to place and oriented to time; Negative for orientation impaired, confused, lethargic or stuporous Motor Exam: strength 5/5 throughout Psych mental status grossly normal Appearance: Negative for unkempt Attitude: No agitated Mood & Affect: Negative for depressed Thought Process: normal thought process Thought Content: normal thought content Attention / Concentration: Negative for other Skin General Skin Exam: Negative for jaundice or pallor Lesions: no lesions Rashes: no rashes Trauma: Negative for abrasion MDM MDM MDM Narrative Medical decision making narrative: 72-year-old male presents with urinary retention and overflow incontinence after recent cystoscopy for bladder cancer. 16 Urdu Brambila catheter replaced. CBC and chemistry will be obtained to make sure he does not have an any acute kidney injury. Also check his blood count. Urinalysis will be sent to rule out urinary tract infection. Repeat exam at 9:20 PM patient doing well will be discharged home. Follow-up with Dr. Miguel Beltran of urology. He did call and spoke to him about the patient. Lab Data Attestation: I reviewed the patient's lab results. Lab results narrative: CBC shows a white 11.3. H&H 14.2 and 42. Platelets 281. Electrolytes unremarkable gap is 6 normal BUN of 15 and creatinine 1.2. Glucose 116. Urinalysis showed 10-25 red cells but no signs of infection, no white cells, nitrates or bacteria. Labs: Laboratory Results - last 24 hr 08/17/22 08/17/22 08/17/22 18:15 18:15 18:46 WBC 11.3 H RBC 4.48 L Hgb 14.2 Hct 42.3 MCV 94.4 H MCH 31.7 MCHC 33.6 RDW Std Deviation 46.5 H RDW Coeff of Aashish 13.2 Plt Count 281 MPV 10.1 Immature Gran % (Auto) 1.700 H Neut % (Auto) 73.3 H Lymph % (Auto) 10.3 L Clarke % (Auto) 8.3 Eos % (Auto) 5.8 H Baso % (Auto) 0.6 Absolute Neuts (auto) 8.3 H Absolute Lymphs (auto) 1.16 Nucleated RBC % 0 Sodium 141 Potassium 3.5 Chloride 105 Carbon Dioxide 30.0 Anion Gap 6 BUN 15 Creatinine 1.26 Est GFR (MDRD) Af Amer 72 Est GFR (MDRD) Non-Af 59 L BUN/Creatinine Ratio 11.9 Glucose 116 H Calcium 9.1 Urine Color Yellow Urine Clarity Clear Urine pH 7.0 Ur Specific [place] 1.005 Urine Protein 30 H Urine Glucose (UA) Normal Urine Ketones Negative Urine Occult Blood 250 H Urine Nitrite Negative Urine Bilirubin Negative Urine Urobilinogen Normal Ur Leukocyte Esterase 100 H Urine RBC 10-25 SEEN Urine WBC 0-5 SEEN Ur Squamous Epith Cells 0 SEEN Urine Bacteria 0 SEEN Urine Mucus 0 SEEN Discharge Plan Triage Chief Complaint: Brambila C/O ED Provider: Haim Guardado Dx/Rx/DC Orders Clinical Impression: Acute urinary retention, History of bladder cancer Instructions: Indwelling Urinary Catheter Dc, ED Urinary Retention, Male Prescriptions: No Action atorvastatin 80 MG tablet 40 mg PO DAILY@2200 0RF aspirin 81 MG tablet,chewable 81 mg PO DAILY@0800 0RF Therems-M 1 TABLET tablet 1 tab PO DAILYCM 0RF amlodipine 10 MG tablet 10 mg PO DAILY sertraline 100 MG tablet 100 mg PO DAILY diazepam 5 MG tablet 5 mg PO PRN PRN (Reason: Anxiety) Gabapentin 600 MG tablet 600 mg PO BID Benadryl capsule 50 mg amoxicillin-pot clavulanate [Augmentin] 875-125 mg tablet 1 tab PO Q12H Qty: 20 0RF Primary Care Provider: FERMIN HENNESSY Referrals: FERMIN HENNESSY [Other] Jhonathan Beltran MD [Med Staff - Active Staff] - As soon as possible Activity Restrictions/Additional Instructions: Call and follow-up with Dr. Miguel Beltran of urology. Call his office for an appointment. Return if catheter not draining. Disposition Disposition: Home, Self Care
[2022-08-17 18:26] LABS: Absolute Lymphocyte Count 1.16 X10^3/uL (0.83-4.51); Absolute Neutrophil Count 8.3 X10^3/uL (2.0-7.7); Basophil# 0.07 X10^3/uL; Basophil% 0.6 % (0-1); Eosinophil# 0.65 X10^3/uL; Eosinophils% 5.8 % (0-5); Hematocrit 42.3 % (40-54); Hemoglobin 14.2 g/dL (13.0-16.5); Lymphocyte # 1.16 X10^3/ul (0.83-4.51); Lymphocyte % 10.3 % (19-41); Mean Corp Hgb Conc 33.6 g/dL (32-36); Mean Corpuscular Hgb 31.7 pg (27.0-32.0); Mean Corpuscular Volume 94.4 fL (80-94); Mean Platelet Vol. 10.1 fl (6.2-12.0); Monocyte# 0.93 X10^3/uL; Monocyte% 8.3 % (0-10); NRBC Flagged by Analyzer 0 % (0-5); Neutrophil # 8.25 X10^3/uL (2.7-7.7); Neutrophil % 73.3 % (47-70); Platelet Count 281 K/mm3 (150-450); RBC Distribution Width CV 13.2 % (11.6-14.6); RBC Distribution Width SD 46.5 fl (35.1-43.9); Red Blood Count 4.48 M/mm3 (4.6-6.2); White Blood Count 11.3 K/mm3 (4.4-11.0)
[2022-08-17] MEDS: Lidocaine Jelly 2% 20 ML Syringe (URO-JET) 1 APPLIC TOPICAL (18:37)
[2022-08-17 18:40] VITALS: BMI 32.0
[2022-08-17 18:43] LABS: Anion Gap 6 (5-15); BUN 15 mg/dL (7-18); BUN/Creat Ratio 11.9 RATIO (10-20); Calcium,Total 9.1 mg/dL (8.5-10.1); Chloride 105 mmol/L (98-107); Creatinine, Serum 1.26 mg/dL (0.70-1.30); EST Glomerular Filtration Rate 59 mL/min (>60); Est Glom Filt Rate - Afr Amer 72 mL/min (>60); Glucose 116 mg/dL (74-106); Potassium 3.5 mmol/L (3.5-5.1); Sodium Level 141 mmol/L (136-145)
[2022-08-17 18:53] LABS: Bacteria 0 SEEN /hpf (None Seen); Mucous, Urine 0 SEEN /hpf (<or=2+); Squamous Epithelial Cells - UA 0 SEEN /hpf (0-5)
[2022-08-17 19:10] LABS: Color, Urine Yellow (Yellow); Glucose, Dipstick Normal (Normal); Ketone-Dipstick Negative (Negative); Leukocyte Esterase-Dipstick 100 /ul (Negative); Nitrite-Dipstick Negative (Negative); Occult Blood-Urine 250 /ul (Negative); Protein-Dipstick 30 mg/dl (Negative); Specific Gravity, Urine 1.005 (1.002-1.030); Urine Bilirubin Dipstick Negative (Negative); Urine Clarity Clear (Clear); Urine Urobilinogen Normal (Normal)
[2022-08-17 19:15] LABS: Red Blood Cells-Urine 10-25 SEEN /hpf (0-5); White Blood Cells 0-5 SEEN /hpf (0-5)
== END 2022-08-17 21:47 | disposition home or self-care (01) ==
PROVIDERS: Emergency Provider Emergency Medicine; Visit Provider Emergency Medicine
DX: T83.89XA Other specified complication of genitourinary prosthetic devices, implants and grafts, initial encounter (principal); R33.9 Retention of urine, unspecified; Z86.73 Personal history of transient ischemic attack (TIA), and cerebral infarction without residual deficits; X58.XXXA Exposure to other specified factors, initial encounter
CPT/HCPCS: 51702; 80048; 81001; 85025; 99283; A4216

== ENCOUNTER 2022-08-18 02:04 | Emergency (ER) | payer MEDICARE, SELFPAY ==
[2022-08-18 02:05] VITALS: BP 201/111; PULSE 98; RESP 20; TEMP 36.3; O2SAT 95; BMI 31.4
--- NOTE | 2022-08-18 02:13 | EDS_ITS ---
HPI History of Present Illness Chief Complaint: Brambila C/O Narrative Narrative: 72-year-old male presenting to have his Brambila catheter assessed. Patient had this placed last evening in the emergency room. He has a history of bladder cancer and apparently had a recent cystoscopy performed by Dr. Beltran. He was unable to urinate and was having overflow incontinence. Brambila catheter was placed and the patient was ultimately discharged home. He states that the Brambila catheter bag dislodged from the the line where it is attached on the leg. He and his friends were able to push this back together and connected. He states he just wanted to have this looked at to make sure it was okay. [facility] Medical History Alcohol abuse Cirrhosis Gout Hayfever Heart murmur Hypertension Neuropathy Non-smoker TIA (transient ischemic attack) Home Medications aspirin 81 mg chewable tablet 81 mg PO DAILY@0800 03/18/18 [Rx Last Taken Unknown] atorvastatin 80 mg tablet 40 mg PO DAILY@2200 03/18/18 [Rx Last Taken Unknown] multivitamin,yt-paus-gqfewthg 27 mg-0.4 mg tablet (Therems-M) 1 tab PO DAILYCM 03/18/18 [Rx Last Taken Unknown] Gabapentin 600 mg PO BID 09/01/19 [History Last Taken Unknown] amlodipine 10 mg tablet 10 mg PO DAILY 09/01/19 [History Last Taken Unknown] diazepam 5 mg tablet 5 mg PO PRN PRN Anxiety 09/01/19 [History Last Taken Unknown] sertraline 100 mg tablet 100 mg PO DAILY 09/01/19 [History Last Taken Unknown] Benadryl 50 mg 12/07/20 [History Last Taken Unknown] amoxicillin 875 mg-potassium clavulanate 125 mg tablet (Augmentin) 1 tab PO Q12H #20 tabs 12/07/20 [Rx Last Taken Unknown] Allergy/AdvReac Type Severity Reaction Status Date / Time No Known Allergies Allergy Verified 08/17/22 16:53 Surgical History History of right hip replacement Social History Smoking Status: Never smoker ROS ROS ED Constitutional Constitutional ED: Denies chills, fever(s) or sweats Eyes Eyes: Denies blurry vision or change in vision ENT ENT ED: Denies ear pain or sore throat Cardiovascular Cardiovascular: Denies chest pain, palpitations or racing heartbeat Respiratory/Chest Respiratory/Chest: Denies cough, dyspnea or sputum Gastrointestinal Gastrointestinal: Denies abdominal pain, constipation, diarrhea, nausea or vomiting Genitourinary Genitourinary ED: Denies dysuria, hematuria or urinary frequency Musculoskeletal Musculoskeletal: Denies arthralgias, myalgias or neck pain Integumentary Denies abscess, Abrasions or rash Neurologic Neurologic: Denies headache(s), paresthesias or weakness Psychiatric Psychiatric: Denies anxiety, depression, suicidal ideation or suicidal thoughts Endocrine Endocrinology: Denies polydipsia or polyuria EXAM Physical Exam Const Vital Signs: 08/18/22 02:05 Temperature 97.3 F L Temperature Source Temporal Pulse Rate 98 Respiratory Rate 20 H Blood Pressure 201/111 H Blood Pressure Mean 141 Pulse Ox 95 Oxygen Delivery Method Room Air General Appearance ED: Negative for pallor HEENT Reports normocephalic, head/scalp atraumatic and moist mucous membranes Eyes PERRL and EOMs intact bilaterally Neck no lymphadenopathy and supple Chest Wall inspection of chest normal and palpation of chest normal Resp normal respiratory effort and clear to auscultation bilaterally Auscultation: Negative for rales, rhonchi or wheezes Cardio regular rate and regular rhythm GI normal to inspection, nondistended, normoactive bowel sounds and non-distended Auscultation: normoactive bowel sounds Palpation: soft no CVA tenderness Narrative: Brambila catheter in place. Urine in the leg bag. Extremity normal to inspection General Extremety ED: Yes edema and tenderness General Extremity: edema Neuro oriented x3 and CN's II-XII intact bilaterally Sensorium / Orientation: alert Motor Exam: strength 5/5 throughout Psych mental status grossly normal Attitude: No agitated Skin no rashes or lesions noted and no wounds General Skin Exam: Negative for jaundice or pallor MDM MDM MDM Narrative Medical decision making narrative: Patient presenting for evaluation of his Brambila catheter. He had 1 placed earlier for urinary retention. He states that it dislodged at the attachment level on his leg. He was able to get this back on but came to the emergency room to have it evaluated. Appears to be functioning normally. He is not having any pain. He did not pull this out of his urethra. He had lab work earlier which was normal. I think he stable for discharge at this point. Impression: 1. Brambila catheter care Lab Data Attestation: I reviewed the patient's lab results. Discharge Plan Triage Chief Complaint: Brambila C/O ED Provider: Babatunde Manley Dx/Rx/DC Orders Prescriptions: No Action atorvastatin 80 MG tablet 40 mg PO DAILY@2200 0RF aspirin 81 MG tablet,chewable 81 mg PO DAILY@0800 0RF Therems-M 1 TABLET tablet 1 tab PO DAILYCM 0RF amlodipine 10 MG tablet 10 mg PO DAILY sertraline 100 MG tablet 100 mg PO DAILY diazepam 5 MG tablet 5 mg PO PRN PRN (Reason: Anxiety) Gabapentin 600 MG tablet 600 mg PO BID Benadryl capsule 50 mg amoxicillin-pot clavulanate [Augmentin] 875-125 mg tablet 1 tab PO Q12H Qty: 20 0RF Primary Care Provider: FERMIN HENNESSY Referrals: FERMIN HENNESSY [Other]
[2022-08-18 02:32] VITALS: BP 160/85
== END 2022-08-18 02:33 | disposition home or self-care (01) ==
PROVIDERS: Emergency Provider Student in an Organized Health Care Education/Training Program; Visit Provider Student in an Organized Health Care Education/Training Program
DX: T83.89XA Other specified complication of genitourinary prosthetic devices, implants and grafts, initial encounter (principal); R33.9 Retention of urine, unspecified; Z86.73 Personal history of transient ischemic attack (TIA), and cerebral infarction without residual deficits; X58.XXXA Exposure to other specified factors, initial encounter
CPT/HCPCS: 99284

== ENCOUNTER 2022-08-20 22:34 | Emergency (ER) | payer MEDICARE, SELFPAY ==
[2022-08-20 22:35] VITALS: BP 146/90; PULSE 86; RESP 18; TEMP 36.8; O2SAT 95
--- NOTE | 2022-08-20 22:57 | ED.RN ---
pt and family stated pt pulled on erickson and tubing is out more than it was before. this nurse deflated 10cc balloon on erickson and repositioned refilled 10cc balloon. pt tolerated well.
--- NOTE | 2022-08-20 22:59 | EDS_ITS ---
HPI History of Present Illness Chief Complaint: Brambila C/O Narrative Narrative: Patient is a 72-year-old male with chronic indwelling Brambila catheter secondary to urinary retention. He states the catheter has been present for multiple weeks and was just recently changed 5 to 7 days ago. He states that today the catheter got caught and pulled and he noticed some blood present. He states he was concerned the catheter had become dislodged and therefore comes to the hospital for evaluation. He also states that he is had intermittent spasms and pain in his lower abdomen which she is unsure if they are related to the catheter. However his main concern is with the pulling of the Brambila catheter tube that he dislodged his current catheter and will let knee replaced [facility] Medical History Alcohol abuse Cirrhosis Gout Hayfever Heart murmur Hypertension Neuropathy Non-smoker TIA (transient ischemic attack) Home Medications aspirin 81 mg chewable tablet 81 mg PO DAILY@0800 03/18/18 [Rx Last Taken Unknown] atorvastatin 80 mg tablet 40 mg PO DAILY@2200 03/18/18 [Rx Last Taken Unknown] multivitamin,nx-uwll-urpbcwoe 27 mg-0.4 mg tablet (Therems-M) 1 tab PO DAILYCM 03/18/18 [Rx Last Taken Unknown] Gabapentin 600 mg PO BID 09/01/19 [History Last Taken Unknown] amlodipine 10 mg tablet 10 mg PO DAILY 09/01/19 [History Last Taken Unknown] diazepam 5 mg tablet 5 mg PO PRN PRN Anxiety 09/01/19 [History Last Taken Unknown] sertraline 100 mg tablet 100 mg PO DAILY 09/01/19 [History Last Taken Unknown] Benadryl 50 mg 12/07/20 [History Last Taken Unknown] amoxicillin 875 mg-potassium clavulanate 125 mg tablet (Augmentin) 1 tab PO Q12H #20 tabs 12/07/20 [Rx Last Taken Unknown] phenazopyridine 200 mg tablet (Pyridium) 200 mg PO TID PRN pain/spasm #20 tabs 08/20/22 [Rx Last Taken Unknown] Allergy/AdvReac Type Severity Reaction Status Date / Time No Known Allergies Allergy Verified 08/20/22 22:37 Surgical History History of right hip replacement Social History Smoking Status: Never smoker ROS ROS ED Constitutional Constitutional ED: Denies chills or fever(s) ENT ENT ED: Denies sore throat Cardiovascular Cardiovascular: Denies chest pain Respiratory/Chest Respiratory/Chest: Denies cough or dyspnea Gastrointestinal Gastrointestinal: Reports abdominal pain; Denies diarrhea, nausea or vomiting Genitourinary Genitourinary ED: Reports other Details: Positive bladder spasm ; Denies dysuria Musculoskeletal Musculoskeletal: Denies back pain or myalgias Integumentary Denies rash Neurologic Neurologic: Denies headache(s) Hematologic/Lymphatic Hematologic/Lymphatic: Denies easy bleeding or easy bruising EXAM Physical Exam Const Vital Signs: 08/20/22 22:35 Temperature 98.3 F Temperature Source Temporal Pulse Rate 86 Respiratory Rate 18 Blood Pressure 146/90 H Blood Pressure Mean 108 Pulse Ox 95 Oxygen Delivery Method Room Air Positive well nourished and well developed General Appearance ED: well developed Eyes PERRL and EOMs intact bilaterally Neck supple Resp normal respiratory effort and clear to auscultation bilaterally Cardio regular rate and regular rhythm GI normal to inspection, nondistended, normoactive bowel sounds, non-tender, non- distended and no masses GI Narrative: There is no organomegaly or distention in the midline of the lower abdomen going against acute urinary retention Auscultation: normoactive bowel sounds Palpation: soft Narrative: Indwelling Brambila catheter is in place. There is no active blood or leakage of fluid from around the catheter tubing. There is clear yellow urine within the catheter tubing as well. There is no testicular masses or swelling no secondary changes to suggest Sanjuana's gangrene. Extremity normal to inspection Neuro oriented x3 and CN's II-XII intact bilaterally Sensorium / Orientation: alert Psych mental status grossly normal Skin no rashes or lesions noted MDM MDM MDM Narrative Medical decision making narrative: Patient presented to the ER after reporting that the catheter was pulled on and potentially dislodged. In the ER the catheter was advanced and after doing so there was return of clear yellow urine. He has no organomegaly to suggest there is any type of obstruction or dislodgment of the catheter either. He did report intermittent areas of abdominal pain and spasm which I feel are bladder spasms secondary to his chronic indwelling Brambila catheter. I informed him this is normal and that he can be prescribed Pyridium to help with bladder spasm symptoms in the future. However at this time as he has no current bleeding or discharge from around the Brambila catheter we know it is in place as he has no urinary retention by exam and there is urine draining throughout the catheter tubing he is otherwise safe for discharge. Discharge Plan Triage Chief Complaint: Brambila C/O ED Provider: Phillip Ramirez Dx/Rx/DC Orders Clinical Impression: Malfunction of Brambila catheter, Bladder spasms, HTN (hypertension), HLD (hyperlipidemia), Urinary retention Instructions: ED Brambila Catheter, Care Prescriptions: New phenazopyridine [Pyridium] 200 mg tablet 200 mg PO TID PRN (Reason: pain/spasm) Qty: 20 0RF No Action atorvastatin 80 MG tablet 40 mg PO DAILY@2200 0RF aspirin 81 MG tablet,chewable 81 mg PO DAILY@0800 0RF Therems-M 1 TABLET tablet 1 tab PO DAILYCM 0RF amlodipine 10 MG tablet 10 mg PO DAILY sertraline 100 MG tablet 100 mg PO DAILY diazepam 5 MG tablet 5 mg PO PRN PRN (Reason: Anxiety) Gabapentin 600 MG tablet 600 mg PO BID Benadryl capsule 50 mg amoxicillin-pot clavulanate [Augmentin] 875-125 mg tablet 1 tab PO Q12H Qty: 20 0RF Primary Care Provider: Care Physician,No Primary Referrals: Jhonathan Beltran MD [Med Staff - Active Staff] - Care Physician,No Primary [Primary Care Provider] - Activity Restrictions/Additional Instructions: Please take the Pyridium as needed to help control bladder spasm and return to the ER should you have any further concerns Disposition Disposition: Home, Self Care Discharge Date/Time: 08/20/22 23:14
[2022-08-20] MEDS: Phenazopyridine 95 MG Tablet 190 MG PO (23:02)
== END 2022-08-20 23:14 | disposition home or self-care (01) ==
PROVIDERS: Emergency Provider Emergency Medicine; Visit Provider Emergency Medicine
DX: T83.89XA Other specified complication of genitourinary prosthetic devices, implants and grafts, initial encounter (principal); R33.9 Retention of urine, unspecified; N32.89 Other specified disorders of bladder; I10 Essential (primary) hypertension; E78.5 Hyperlipidemia, unspecified; Z86.73 Personal history of transient ischemic attack (TIA), and cerebral infarction without residual deficits; X58.XXXA Exposure to other specified factors, initial encounter
CPT/HCPCS: 99283

== ENCOUNTER 2023-08-04 14:13 | Emergency (ER) | payer MEDICARE, SELFPAY ==
[2023-08-04 14:14] VITALS: BP 133/111; PULSE 78; RESP 16; TEMP 36.3; O2SAT 93
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
[2023-08-04 15:29] LABS: Absolute Lymphocyte Count 0.54 X10^3/uL (0.83-4.51); Absolute Neutrophil Count 4.9 X10^3/uL (2.0-7.7); Basophil# 0.04 X10^3/uL; Basophil% 0.6 % (0-1); Eosinophil# 0.51 X10^3/uL; Eosinophils% 7.4 % (0-5); Hematocrit 40.4 % (40-54); Hemoglobin 13.4 g/dL (13.0-16.5); Lymphocyte # 0.54 X10^3/ul (0.83-4.51); Lymphocyte % 7.8 % (19-41); Mean Corp Hgb Conc 33.2 g/dL (32-36); Mean Corpuscular Hgb 32.2 pg (27.0-32.0); Mean Corpuscular Volume 97.1 fL (80-94); Monocyte# 0.89 X10^3/uL; Monocyte% 12.9 % (0-10); NRBC Flagged by Analyzer 0 % (0-5); Neutrophil # 4.89 X10^3/uL (2.7-7.7); Neutrophil % 71.2 % (47-70); POSITIVE DIFFERENTIAL YES; Platelet Count 161 K/mm3 (150-450); RBC Distribution Width CV 14.1 % (11.6-14.6); RBC Distribution Width SD 49.5 fl (35.1-43.9); Red Blood Count 4.16 M/mm3 (4.6-6.2); White Blood Count 6.9 K/mm3 (4.4-11.0)
[2023-08-04 15:45] LABS: ALB/GLOB Ratio 0.9 RATIO (0.9-2.4); AST(SGOT) 40 U/L (15-37); Alanine Aminotransfer ALT/SGPT 34 U/L (16-61); Albumin, Serum 3.5 g/dL (3.2-5.0); Alkaline Phosphatase 92 U/L (45-117); Anion Gap 3 (5-15); BUN 21 mg/dL (7-18); BUN/Creat Ratio 15.2 RATIO (10-20); Calcium,Total 8.7 mg/dL (8.5-10.1); Chloride 112 mmol/L (98-107); Creatinine, Serum 1.38 mg/dL (0.70-1.30); EST Glomerular Filtration Rate 53 mL/min (>60); Est Glom Filt Rate - Afr Amer 65 mL/min (>60); Glucose 106 mg/dL (74-106); Potassium 3.3 mmol/L (3.5-5.1); Protein, Total 7.5 g/dL (6.4-8.2); Sodium Level 142 mmol/L (136-145)
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
[2023-08-04 16:22] VITALS: BP 144/79; PULSE 68; RESP 12; O2SAT 93
== END 2023-08-04 16:29 | disposition home or self-care (01) ==
PROVIDERS: Emergency Provider Emergency Medicine; Visit Provider Emergency Medicine
DX: Z04.1 Encounter for examination and observation following transport accident (principal); S00.03XA Contusion of scalp, initial encounter; S50.11XA Contusion of right forearm, initial encounter; S50.811A Abrasion of right forearm, initial encounter; W19.XXXA Unspecified fall, initial encounter; I10 Essential (primary) hypertension; F10.10 Alcohol abuse, uncomplicated; Y90.0 Blood alcohol level of less than 20 mg/100 ml; R94.4 Abnormal results of kidney function studies; Z79.82 Long term (current) use of aspirin; Z79.899 Other long term (current) drug therapy; Z86.73 Personal history of transient ischemic attack (TIA), and cerebral infarction without residual deficits
CPT/HCPCS: 70450; 80053; 80320; 85025; 99282; A4216; G0480

== ENCOUNTER 2023-11-13 21:07 | Emergency (ER) | payer MEDICARE, SELFPAY ==
[2023-11-13 21:08] VITALS: BP 140/77; PULSE 81; RESP 18; TEMP 36.3; O2SAT 91
[2023-11-13 21:09] VITALS: BMI 36.2
--- NOTE | 2023-11-13 22:33 | RAD_ITS ---
STUDY: X-RAY - UNILATERAL RIBS ( LEFT ) WITH CHEST REASON FOR EXAM: Male, 73 years old. pain TECHNIQUE - RIBS: 4 view(s) of the ribs. TECHNIQUE - CHEST: Single PA view of the chest. COMPARISON: None. FINDINGS - RIBS: Normal visualized ribs without a demonstrated fracture. FINDINGS - CHEST: The lungs are clear and expanded. There is no demonstrated pleural abnormality. Normal size heart. Normal mediastinum and puja. Normal visualized pulmonary arteries. Normal visualized aortic arch and descending thoracic aorta. Normal visualized thoracic spine. Normal visualized ribs, clavicles, and shoulders. There is no demonstrated abnormality of the visualized soft tissue structures of the upper abdomen. RAD/Ribs Uni Min 3V w/PA Chest IMPRESSION: RIBS: Normal x-ray examination of the ribs. CHEST: Normal x-ray examination of the chest. Electronically Signed: Joo Prasad MD at 23:22 EDT ,
[2023-11-13 23:07] VITALS: BP 136/69; PULSE 83; RESP 18; O2SAT 93
[2023-11-13 23:59] VITALS: BP 132/60; PULSE 62; RESP 16; TEMP 36.6; O2SAT 98
--- NOTE | 2023-11-14 00:05 | EDS_ITS ---
HPI History of Present Illness Chief Complaint: Chest Other Informant: patient Narrative Narrative: Patient is a 73-year-old male with past medical history of hypertension and alcohol abuse. He states that 2 or 3 days ago he tripped and fell striking the left side of his chest onto a table. He denies striking his head or any loss consciousness. He states that he has had pain in the left-sided rib cage for the last few days but despite doing [id number]-[id number] medication is not improving. He is concerned that he may have broke a rib and with this comes in for evaluation. [facility] Medical History Alcohol abuse Cirrhosis Gout Hayfever Heart murmur Hypertension Neuropathy Non-smoker TIA (transient ischemic attack) Home Medications ?Medication ?Instructions ?Recorded ?Last Taken ?Type aspirin 81 mg chewable tablet 81 mg PO DAILY@0800 03/18/18 Unknown Rx atorvastatin 80 mg tablet 40 mg (1/2 x 80 mg) PO DAILY@2200 03/18/18 Unknown Rx multivitamin,dn-uvwy-mlgylrbw 27 1 tab PO DAILYCM 03/18/18 Unknown Rx mg-0.4 mg tablet (Therems-M) Gabapentin 600 mg PO DAILY 09/01/19 Unknown History amlodipine 10 mg tablet 10 mg PO DAILY 09/01/19 Unknown History diazepam 5 mg tablet 5 mg PO PRN PRN Anxiety 09/01/19 Unknown History sertraline 100 mg tablet 100 mg PO DAILY 09/01/19 Unknown History Benadryl 50 mg PO DAILY 12/07/20 Unknown History methocarbamol 500 mg tablet 500 mg PO 4X/DAY PRN Muscle 11/14/23 Unknown Rx pain/spasm #40 tabs oxycodone-acetaminophen 5 mg-325 1 tab PO Q6H PRN pain 3 days #12 11/14/23 Unknown Rx mg tablet (Percocet) tabs Allergy/AdvReac Type Severity Reaction Status Date / Time No Known Allergies Allergy Verified 11/13/23 21:09 Surgical History History of right hip replacement Social History (Updated 08/04/23 @ 16:[address] Colt Tomas MD) Smoking Status: Never smoker alcohol intake: current alcohol intake frequency: 3 or more drinks per day ROS ROS ED Constitutional Constitutional ED: Denies chills or fever(s) Eyes Eyes: Denies change in vision or diplopia ENT ENT ED: Denies sore throat Cardiovascular Cardiovascular: Reports chest pain Respiratory/Chest Respiratory/Chest: Denies cough or dyspnea Gastrointestinal Gastrointestinal: Denies abdominal pain, diarrhea, nausea or vomiting Genitourinary Genitourinary ED: Denies dysuria or hematuria Musculoskeletal Musculoskeletal: Denies back pain, myalgias or neck pain Integumentary Denies Abrasions Neurologic Neurologic: Denies headache(s), paresthesias or weakness Hematologic/Lymphatic Hematologic/Lymphatic: Denies easy bleeding or easy bruising EXAM Physical Exam Const Vital Signs: 11/13/23 21:08 11/13/23 23:07 11/13/23 23:59 Temperature 97.4 F L 97.8 F Temperature Source Temporal Pulse Rate 81 83 62 Respiratory Rate 18 18 16 Blood Pressure 140/77 H 136/69 H 132/60 H Blood Pressure Mean 98 91 84 Pulse Ox 91 93 98 Oxygen Delivery Method Room Air Room Air MDM MDM MDM Narrative Medical decision making narrative: Patient arrived to the ER borderline hypertensive otherwise with stable vitals. He reported a mechanical fall so I felt no need for cardiac or syncope workup. As he did not strike his head or have loss consciousness my concern for traumatic brain injury such as subdural or epidural hematoma is low and I feel no need for head CT. With potential patient having rib contusion versus rib fracture versus pneumothorax I did elect to perform an x-ray. X-ray revealed no signs of acute trauma. Therefore at this time as patient does not have multiple rib fractures or pneumothorax or hemothorax and vitals are overall stable he can be discharged home with symptomatic care. History & Record Review Discussion w/independent historian: Patient Radiography Diagnostic Testing: Clinical Impression(s) from Imaging Studies Ribs w/Chest X-Ray 11/13/23 22:33 IMPRESSION: RIBS: Normal x-ray examination of the ribs. CHEST: Normal x-ray examination of the chest. Electronically Signed: Joo Prasad MD at 23:22 EDT , Left rib series with 1 view chest as interpreted by the emergency medicine physician reveals no acute rib fracture or pneumothorax or pleural effusion Discharge Plan Triage Chief Complaint: Chest Other ED Provider: Phillip Ramirez Dx/Rx/DC Orders Clinical Impression: Contusion of rib on left side, HTN (hypertension), Alcohol abuse Instructions: ED Bruise, Rib Prescriptions: New oxycodone-acetaminophen [Percocet] 5-325 mg tablet 1 tab PO Q6H PRN (Reason: pain) 3 Days Qty: 12 0RF methocarbamol 500 mg tablet 500 mg PO 4X/DAY PRN (Reason: Muscle pain/spasm) Qty: 40 0RF No Action atorvastatin 80 MG tablet 40 mg PO DAILY@2200 0RF aspirin 81 MG tablet,chewable 81 mg PO DAILY@0800 0RF Therems-M 1 TABLET tablet 1 tab PO DAILYCM 0RF amlodipine 10 MG tablet 10 mg PO DAILY sertraline 100 MG tablet 100 mg PO DAILY diazepam 5 MG tablet 5 mg PO PRN PRN (Reason: Anxiety) Gabapentin 600 MG tablet 600 mg PO DAILY Benadryl capsule 50 mg PO DAILY Primary Care Provider: Juan Hess,Out of Referrals: [facility] ,Out of [Primary Care Provider] - Activity Restrictions/Additional Instructions: Your x-rays did not show any sign of rib fracture a pneumothorax/hole in the lung or fluid buildup indicating your ribs are bruised. Take deep breaths send to prevent pneumonia and use the prescribed medication as directed to help control pain. Return to the ER should you have any further concerns Print Language: Latvian Disposition Disposition: Home, Self Care Discharge Date/Time: 11/14/23 00:16
[2023-11-14] MEDS: Oxycodone/Apap 5/325 Tablet PO (00:11)
[2023-11-14] MEDS: Orphenadrine 100 MG Tablet PO (00:11)
== END 2023-11-14 00:16 | disposition home or self-care (01) ==
PROVIDERS: Emergency Provider Emergency Medicine; Visit Provider Emergency Medicine
DX: S20.212A Contusion of left front wall of thorax, initial encounter (principal); F10.10 Alcohol abuse, uncomplicated; I10 Essential (primary) hypertension; Z79.899 Other long term (current) drug therapy; Z79.82 Long term (current) use of aspirin; Z86.73 Personal history of transient ischemic attack (TIA), and cerebral infarction without residual deficits; W19.XXXA Unspecified fall, initial encounter
CPT/HCPCS: 71101; 99283

== ENCOUNTER 2024-08-28 00:29 | Emergency (ER) | payer MEDICARE, SELFPAY ==
[2024-08-28 00:30] VITALS: BP 158/88; PULSE 77; RESP 18; TEMP 36.7; O2SAT 92; BMI 37.0
--- NOTE | 2024-08-28 00:41 | RAD_ITS ---
PROCEDURE: KNEE 4 OR MORE VIEWS REASON FOR EXAM: Injury, status post fall TECHNIQUE: 4 view(s) of the left knee COMPARISON: None. FINDINGS: No fracture or dislocation. No joint effusion. Osteoarthrosis appears greatest patellofemoral compartment. Vascular calcifications. RAD/Knee 4 or More Views IMPRESSION: No fracture or dislocation. Reading Location: [id number]
--- NOTE | 2024-08-28 00:41 | CT_ITS ---
EXAM: Noncontrast head CT CLINICAL HISTORY: Head injury COMPARISON: 08/04/2023 TECHNIQUE: Noncontrast head CT with coronal and sagittal reformatted images FINDINGS: No intracranial hemorrhage, mass effect or calvarial fracture. The ventricles are unchanged in size and remain midline. Age commensurate chronic and involutional changes again noted. Polyp or mucous retention cyst again noted right sphenoid sinus. Mucous retention cyst within the now visualized inferior right maxillary sinus. The mastoids and orbits appear within limits. CT/Brain/Head without Contrast IMPRESSION: No intracranial hemorrhage, mass effect or calvarial fracture. Reading Location: [id number]
--- NOTE | 2024-08-28 00:41 | RAD_ITS ---
PROCEDURE: KNEE 4 OR MORE VIEWS REASON FOR EXAM: Fall, injury TECHNIQUE: 4 view(s) of the right knee COMPARISON: None. FINDINGS: No fracture or dislocation. Suggestion of small joint effusion. No evidence of lipohemarthrosis. Tricompartmental osteoarthrosis appears greatest at the patellofemoral compartment. Vascular calcifications noted. RAD/Knee 4 or More Views IMPRESSION: No fracture or dislocation. Suggestion of small joint effusion. No evidence of lipohemarthrosis. Tricompartmental osteoarthrosis appears greatest at the patellofemoral compartm ent. Reading Location: [id number]
[2024-08-28] MEDS: Diphth,Pertuss(Acell),Tet Vac 0.5 ML Vial IM (00:48)
--- NOTE | 2024-08-28 01:25 | EDS_ITS ---
HPI HPI - Fall History of Present Illness Chief Complaint: Fall Informant: patient and friend Narrative Narrative: Brought in by his friend for which he stays with for evaluation for fall occurring nearly 12 hours ago at 1 PM. Reports going down 3-4 steps he fell off the side into gravel and acorns. He did bump his head. Scraped his elbow. He scraped his knees trying to get out. Friend reports they have been trying to get him evaluate throughout the day he would not come. He does drink alcohol he states not daily but did have a couple drinks prior to arrival. Denies headache chest pains. Dressings were placed to bilateral knees. Tetanus is unknown. Tetanus Immunization: Unknown Prior similar symptoms: [facility] Medical History Alcohol abuse Cirrhosis Gout Non-smoker Hayfever Heart murmur Hypertension TIA (transient ischemic attack) Neuropathy Home Medications ?Medication ?Instructions ?Recorded ?Last Taken ?Type aspirin 81 mg chewable tablet 81 mg PO DAILY@0800 02/27 07/15 Unknown Rx atorvastatin 80 mg tablet 40 mg (1/2 x 80 mg) PO DAILY @2200 03/18/18 Unknown Rx multivitamin,[id number] 27 1 tab PO DAILYCM 02/27 07/15 Unknown Rx mg-0.4 mg tablet (Therems-M) Gabapentin 600 mg PO DAILY 09/01/19 Unk nown History amlodipine 10 mg tablet 10 mg PO DAILY 09/01/19 Unkn own History diazepam 5 mg tablet 5 mg PO PRN PRN Anxiety 12/15 Unknown History sertraline 100 mg tablet 100 mg PO DAILY 09/01/19 Unk nown History Benadryl 50 mg PO DAILY 12/07/20 Unkn own History methocarbamol 500 mg tablet 500 mg PO 4X/DAY PRN Muscl e 11/14/23 Unknown Rx pain/spasm #40 tabs oxycodone-acetaminophen 5 mg-325 1 tab PO Q6H PRN pain 3 days #12 11/14/23 Unknown Rx mg tablet (Percocet) tabs Allergy/AdvReac Type Severity Reaction Status Date / Time No Known Allergies Allergy Verified 11/13/23 21:09 Surgical History History of right hip replacement Social History Smoking Status: Never smoker alcohol intake: current alcohol intake frequency: 3 or more drinks per day ROS ROS ED Constitutional Constitutional ED: Denies chills, fever(s) or sweats ENT ENT ED: Denies sore throat Cardiovascular Cardiovascular: Denies chest pain, leg edema, palpitations or racing heartbeat Respiratory/Chest Respiratory/Chest: Denies cough, dyspnea or dyspnea on exertion Gastrointestinal Gastrointestinal: Denies abdominal pain, diarrhea, nausea or vomiting Genitourinary Genitourinary ED: Denies dysuria, hematuria or urinary frequency Musculoskeletal Musculoskeletal: Denies back pain, extremity pain or neck pain Integumentary Reports Abrasions and wounds; Denies rash Neurologic Neurologic: Denies headache(s), paresthesias or weakness EXAM Physical Exam Const Vital Signs: 08/28/24 00:30 08/28/24 00:34 Temperature 98.1 F Temperature Source Oral Pulse Rate 77 Respiratory Rate 18 Respiratory Effort Normal Non-Labored Respiratory Depth Normal Respiratory Pattern Normal Blood Pressure 158/88 H Blood Pressure Mean 111 Pulse Ox 92 Oxygen Delivery Method Room Air Room Air Positive well nourished and well developed Constitutional Narrative: GCS 15 General Appearance ED: well developed HEENT Reports normocephalic and moist mucous membranes normocephalic and atraumatic Eyes General Eye ED: Yes normal appearance of both eyes Neck full ROM and supple Neck Narrative: No midline tenderness. Chest Wall inspection of chest normal and palpation of chest normal Chest: Negative for tenderness Resp normal respiratory effort and normal air movement Effort and Inspection: symmetric chest movement; Negative for respiratory distress Cardio regular rate, regular rhythm and no murmurs Peripheral Pulses: pulses 2+ throughout GI normal to inspection, nondistended, normoactive bowel sounds and non-tender Palpation: Negative for guarding or rebound tenderness present Back/Spine no CVA tenderness Back/Spine Narrative: No midline thoracic or lumbar tenderness. No ecchymosis. No step-offs. Extremity Extremity Narrative: Upper extremities full range of motion without tenderness. Left forearm noted scattered abrasions. No bleeding noted. No drainage. Lower extremities: Negative logroll bilaterally knee extensors both intact. Dressings were placed to both knees taken down, there was abrasion across the patellar bilaterally dried blood, mild patellar tenderness. No deformities. No ankle tenderness. Soft compartments. General Extremety ED: Negative for edema or tenderness General Extremity: Negative for edema Neuro oriented x3 and no sensory deficits noted Sensorium / Orientation: awake and alert Skin no rashes or lesions noted and no wounds MDM MDM MDM Narrative Medical decision making narrative: Interventions / MDM: Differential diagnosis: Alcohol dependence, closed head injury, knee abrasions. Diagnosis considered but do not suspect: Intracranial hemorrhage however CT negative. Fractures however x-rays negative. My EKG interpretation: N/A Imaging independently reviewed and interpreted by myself: CT brain: No acute process. Left knee x-ray 4 views: Osteoarthritic changes no fracture. Right knee x-ray 4 views: Osteoarthritic changes with no fractures. Also read by radiology. External documents reviewed: N/A Test considered but not ordered:N/A ED course: Patient with a fall off steps earlier today. He hit his head. Alcohol history and dependence. Currently not intoxicated. No complaints. Agrees with tetanus update. Dressings with Xeroform placed to bilateral knee abrasions. Trauma scans head obtained. X-ray of both knees ordered. 0125: CT brain negative. Also read by radiology. Bilateral knee x-rays interpreted by myself shows no fractures. Osteoarthritic changes noted. Awaiting final read. 0135: Final read from radiologist also negative. Reassured on findings. Wound care discussed. Discharged with his friend. Outpatient follow-up. All questions were answered. Re-evaluation: stable Disposition discussed with patient/family/significant other: Patient Case discussed with consulting clinician: N/A This note was generated with [employer] dictation software. It may contain incorrect words, spelling, and punctuation that were not noted in checking the note before signing. Radiography Diagnostic Testing: Clinical Impression(s) from Imaging Studies Brain CT 08/28/24 00:41 IMPRESSION: No intracranial hemorrhage, mass effect or calvarial fracture. Reading Location: [facility] Knee X-Ray 08/28/24 00:41 IMPRESSION: No fracture or dislocation. Suggestion of small joint effusion. No evidence of lipohemarthrosis. Tricompartmental osteoarthrosis appears greatest at the patellofemoral compartment. Reading Location: [facility] Knee X-Ray 08/28/24 00:41 IMPRESSION: No fracture or dislocation. Reading Location: [facility] Discharge Plan Triage Chief Complaint: Fall ED Provider: Victor Hugo Real Dx/Rx/DC Orders Clinical Impression: Alcohol dependence, Fall, CHI (closed head injury), Abrasion of both knees, Tetanus toxoid vaccination administered at current visit Instructions: Alcoholism Resources, ED Abrasion, ED Head Injury (Adult) Prescriptions: No Action atorvastatin 80 MG tablet 40 mg PO DAILY@2200 0RF aspirin 81 MG tablet,chewable 81 mg PO DAILY@0800 0RF Therems-M 1 TABLET tablet 1 tab PO DAILYCM 0RF amlodipine 10 MG tablet 10 mg PO DAILY sertraline 100 MG tablet 100 mg PO DAILY diazepam 5 MG tablet 5 mg PO PRN PRN (Reason: Anxiety) Gabapentin 600 MG tablet 600 mg PO DAILY Benadryl capsule 50 mg PO DAILY oxycodone-acetaminophen [Percocet] 5-325 mg tablet 1 tab PO Q6H PRN (Reason: pain) 3 Days Qty: 12 0RF methocarbamol 500 mg tablet 500 mg PO 4X/DAY PRN (Reason: Muscle pain/spasm) Qty: 40 0RF Primary Care Provider: Care Physician,No Primary Referrals: Sola Bruce MD [Med Staff - Mail Weigher] - 1 Week Care Physician,No Primary [Primary Care Provider] - Activity Restrictions/Additional Instructions: Your CT brain negative. Bilateral knee x-ray osteoarthritic changes. No fracture. Tetanus updated. Wound care as discussed. Print Language: Cameroonian Disposition Disposition: Home, Self Care
[2024-08-28 01:50] VITALS: BP 138/81; PULSE 77; RESP 16; TEMP 36.6; O2SAT 99
== END 2024-08-28 01:51 | disposition home or self-care (01) ==
PROVIDERS: Emergency Provider Emergency Medicine; Visit Provider Emergency Medicine
DX: S09.90XA Unspecified injury of head, initial encounter (principal); F10.20 Alcohol dependence, uncomplicated; S80.212A Abrasion, left knee, initial encounter; S80.211A Abrasion, right knee, initial encounter; Z23 Encounter for immunization; Z86.73 Personal history of transient ischemic attack (TIA), and cerebral infarction without residual deficits; W19.XXXA Unspecified fall, initial encounter
CPT/HCPCS: 70450; 73564; 90471; 90715; 99283